=== PATIENT | female | born 1955 | race Caucasian/White ===

== ENCOUNTER 2016-08-21 19:02 | Emergency (ER) | payer MEDICAID ==
--- NOTE | 2016-08-21 19:15 | ER Document Report ---
ED Medical Screen (RME) - General Stated Complaint: POSSIBLE STROKE Notes: 61 yo female c/o abdominal pain x 2 days. + vomiting, no dysuria, no fever. generalized abdominal pain. c/o chest tightness and kidney pain. hx/o bipolar, schizo, ovarian cysts, tre, hernia repair TRAVEL OUTSIDE OF THE [place] IN LAST 30 DAYS: No - Related Data Allergies/Adverse Reactions: kiwi [Kiwi (Actinidia Chinensis)] Allergy (Severe, Verified 12/21/14 08:20) tongue swelling and bumps on tongue propoxyphene napsylate [From Darvocet-N 100] Allergy (Severe, Verified 12/21/14 08:20) VOMITING, SWELLING tetracycline [Tetracycline] Allergy (Severe, Verified 12/21/14 08:20) BUMPS ON BODY trimethoprim [From Bactrim] Allergy (Severe, Verified 12/21/14 08:20) PT STATES HER "BODY QUINONEZ UP." sulfamethoxazole [From Bactrim] Allergy (Intermediate, Verified 12/21/14 08:20) PT STATES HER "BODY QUINONEZ UP. strawberry [[place]] Allergy (Mild, Verified 12/21/14 08:20) bumps and sores on tongue ciprofloxacin [From Cipro] Allergy (Verified 10/16/15 12:14) Psychosis nuts Allergy (Mild, Uncoded 12/21/14 08:20) walnuts. causes tongue swelling pineapples Allergy (Mild, Uncoded 12/21/14 08:20) tongue swelling and bumps on tongue Past Medical History - Past Medical History Cardiac Medical History: Reports: Hx Hypertension Denies: Hx Heart Attack Pulmonary Medical History: Reports: Hx Asthma, Hx COPD, Hx Pneumonia Denies: Hx Bronchitis Neurological Medical History: Denies: Hx Cerebrovascular Accident, Hx Seizures Endocrine Medical History: Reports: Hx Diabetes Mellitus Type 2 GI Medical History: Reports: Hx Gastroesophageal Reflux Disease Musculoskeltal Medical History: Reports Hx Arthritis - DDD, BACK AND KNEES Psychiatric Medical History: Reports: Hx Bipolar Disorder, Hx Depression, Hx Schizophrenia - "borderline" Past Surgical History: Reports: Hx Section, Hx Cholecystectomy, Hx Herniorrhaphy - Immunizations Hx Diphtheria, Pertussis, Tetanus Vaccination: Yes - HAD PNEUMONIA VACCINE-NOT SURE OF YEAR Physical Exam - Vital signs Vitals: Temp Pulse Resp BP Pulse Ox 98.4 F 79 20 154/100 H 97 08/21/16 19:08 08/21/16 19:08 08/21/16 19:08 08/21/16 19:08 08/21/16 19:08 Course - Vital Signs Vital signs: Temp Pulse Resp BP Pulse Ox 98.4 F 79 20 154/100 H 97 08/21/16 19:08 08/21/16 19:08 08/21/16 19:08 08/21/16 19:08 08/21/16 19:08
[2016-08-21 19:48] LABS: ABSOLUTE BASOPHILS # (AUTO) 0.1 10^3/uL (0.0-0.2); ABSOLUTE EOSINOPHILS # (AUTO) 0.2 10^3/uL (0.0-0.6); ABSOLUTE LYMPHOCYTES (AUTO) 2.8 10^3/uL (0.5-4.7); ABSOLUTE MONOCYTES (AUTO) 0.6 10^3/uL (0.1-1.4); ABSOLUTE NEUT (AUTO) 10.3 10^3/uL (1.7-8.2); BASOPHILS % (AUTO) 0.7 % (0-2); EOSINOPHILS % (AUTO) 1.2 % (0-6); HEMATOCRIT 46.4 % (36.0-47.0); HEMOGLOBIN 14.6 g/dL (12.0-15.5); HGB HCT DIFFERENCE -2.6; LYMPHOCYTES % (AUTO) 20.1 % (13-45); MEAN CORPUSCULAR HEMOGLOBIN 23.8 pg (27.0-33.4); MEAN CORPUSCULAR HGB CONC 31.5 g/dL (32.0-36.0); MEAN CORPUSCULAR VOLUME 76 fl (80-97); MONOCYTES % (AUTO) 4.6 % (3-13); RED BLOOD COUNT 6.14 10^6/uL (3.72-5.28); RED CELL DISTRIBUTION WIDTH 17.3 % (11.5-14.0); SEGMENTED NEUTROPHILS % (AUTO) 73.4 % (42-78)
[2016-08-21 20:07] LABS: ALANINE AMINOTRANSFERASE 63 U/L (9-52); ALBUMIN 4.3 g/dL (3.5-5.0); ALKALINE PHOSPHATASE 155 U/L (38-126); ANION GAP 17 (5-19); ASPARTATE AMINO TRANSFERASE 57 U/L (14-36); BILIRUBIN,DIRECT 0.7 mg/dL (0.0-0.4); BILIRUBIN,TOTAL 1.1 mg/dL (0.2-1.3); BLOOD UREA NITROGEN 16 mg/dL (7-20); CALCIUM 10.2 mg/dL (8.4-10.2); CARBON DIOXIDE 25 mmol/L (22-30); CHLORIDE 100 mmol/L (98-107); CREATINE KINASE 23 U/L (30-135); CREATININE RESULT 0.86 mg/dL (0.52-1.25); GLUCOSE 167 mg/dL (75-110); LIPASE 219.4 U/L (23-300); POTASSIUM 4.5 mmol/L (3.6-5.0); SODIUM 141.5 mmol/L (137-145)
[2016-08-21 20:17] LABS: CREATINE KINASE MB < 0.22 ng/mL (<4.55); TROPONIN I < 0.012 ng/mL
[2016-08-21 23:37] LABS: APPEARANCE,URINE SLIGHTLY-CLOUDY; BILIRUBIN,URINE NEGATIVE (NEGATIVE); GLUCOSE, URINE NEGATIVE (NEGATIVE); KETONES,URINE NEGATIVE (NEGATIVE); LEUKOCYTE ESTERASE,URINE LARGE (NEGATIVE); NITRITE,URINE POSITIVE (NEGATIVE); PROTEIN,URINE 30 mg/dL (NEGATIVE); URINE SPECIFIC GRAVITY 1.009; UROBILINOGEN,URINE NEGATIVE mg/dL (<2.0)
[2016-08-21] MEDS ORDERED: LIDOCAINE 1% INJ-PF (10 MG/ML) 30 ML SDV INFIL ONE (23:49)
[2016-08-21] MEDS ORDERED: CEFTRIAXONE INJ 1000 MG VIAL IM ONE (23:49)
[2016-08-21] MEDS ORDERED: ONDANSETRON 4 MG TAB.RAPDIS PO ONE (23:49)
[2016-08-21] MEDS ORDERED: INSULIN GLARGINE,HUM.REC.ANLOG 1,000 UNIT/10 ML UNIT SUBCUT ONE (23:49)
[2016-08-21] MEDS ORDERED: KETOROLAC TROMETHAMINE 60 MG/2 ML SDV IM ONE (23:50)
--- NOTE | 2016-08-22 | ER Document Report ---
ED GI/ - General Mode of Arrival: Wheelchair Information source: Patient TRAVEL OUTSIDE OF THE [place] IN LAST 30 DAYS: No - HPI Patient complains to provider of: Abdominal pain Associated symptoms: Other - See above <MORENITA ALCALA - Last Filed: 08/22/16 00:23> <LEI LAMBERT - Last Filed: 08/22/16 03:37> - General Chief Complaint: Abdominal Pain Stated Complaint: abdominal pain Notes: Patient is a 61 year old female who presents to the emergency department complaining of abdominal pain. Patient states the pain is severe, diffuse, and is also in her kidneys. Patient states she has had UTIs and kidney infections in the past and this feels different. Patient states the pain has calmed some since arrival but is still "unbearable". Patient also complains of vomiting. Patient denies dysuria. Patient reports that she did not take her [place] at 1900 like she does normally. (MORENITA ALCALA) - Related Data Allergies/Adverse Reactions: kiwi [Kiwi (Actinidia Chinensis)] Allergy (Severe, Verified 12/21/14 08:20) tongue swelling and bumps on tongue propoxyphene napsylate [From Darvocet-N 100] Allergy (Severe, Verified 12/21/14 08:20) VOMITING, SWELLING tetracycline [Tetracycline] Allergy (Severe, Verified 12/21/14 08:20) BUMPS ON BODY trimethoprim [From Bactrim] Allergy (Severe, Verified 12/21/14 08:20) PT STATES HER "BODY QUINONEZ UP." sulfamethoxazole [From Bactrim] Allergy (Intermediate, Verified 12/21/14 08:20) PT STATES HER "BODY QUINONEZ UP. strawberry [[place]] Allergy (Mild, Verified 12/21/14 08:20) bumps and sores on tongue ciprofloxacin [From Cipro] Allergy (Verified 10/16/15 12:14) Psychosis nuts Allergy (Mild, Uncoded 12/21/14 08:20) walnuts. causes tongue swelling pineapples Allergy (Mild, Uncoded 12/21/14 08:20) tongue swelling and bumps on tongue Past Medical History - General Information source: Patient - Social History Smoking Status: Unknown if Ever Smoked Family History: Reviewed & Not Pertinent Patient has suicidal ideation: No Patient has homicidal ideation: No - Past Medical History Cardiac Medical History: Reports: Hx Hypertension Pulmonary Medical History: Reports: Hx Asthma, Hx COPD, Hx Pneumonia Endocrine Medical History: Reports: Hx Diabetes Mellitus Type 2 GI Medical History: Reports: Hx Gastroesophageal Reflux Disease Musculoskeltal Medical History: Reports Hx Arthritis - DDD, BACK AND KNEES Psychiatric Medical History: Reports: Hx Bipolar Disorder, Hx Depression, Hx Schizophrenia - "borderline" Past Surgical History: Reports: Hx Section, Hx Cholecystectomy, Hx Herniorrhaphy - Immunizations Hx Diphtheria, Pertussis, Tetanus Vaccination: Yes - HAD PNEUMONIA VACCINE-NOT SURE OF YEAR Hx Pneumococcal Vaccination: 06/02/09 <MORENITA ALCALA - Last Filed: 08/22/16 00:23> Review of Systems - Review of Systems Constitutional: No symptoms reported EENT: No symptoms reported Cardiovascular: No symptoms reported Respiratory: No symptoms reported Gastrointestinal: See HPI, Abdominal pain, Vomiting Genitourinary: See HPI, Flank pain - kidney pain. denies: Dysuria Female Genitourinary: No symptoms reported Musculoskeletal: No symptoms reported Skin: No symptoms reported Hematologic/Lymphatic: No symptoms reported Neurological/Psychological: No symptoms reported -: Yes All other systems reviewed and negative <MORENITA ALCALA - Last Filed: 08/22/16 00:23> Physical Exam - Vital signs Interpretation: Normal - General General appearance: Appears well, Alert - HEENT Head: Normocephalic, Atraumatic Eyes: Normal Pupils: PERRL - Respiratory Respiratory status: No respiratory distress Chest status: Nontender Breath sounds: Normal Chest palpation: Normal - Cardiovascular Rhythm: Regular Heart sounds: Normal auscultation Murmur: No - Abdominal Inspection: Normal Distension: No distension Bowel sounds: Normal Tenderness: Tender - Suprapubic Organomegaly: No organomegaly - Back Back: Normal, CVA tenderness - b/l - Extremities General upper extremity: Normal inspection, Nontender, Normal color, Normal ROM , Normal temperature General lower extremity: Normal inspection, Nontender, Normal color, Normal ROM , Normal temperature, Normal weight bearing. No: Patria's sign - Neurological Neuro grossly intact: Yes Cognition: Normal Orientation: AAOx4 Andrea Coma Scale Eye Opening: Spontaneous Andrea Coma Scale Verbal: Oriented Andrea Coma Scale Motor: Obeys Commands Andrea Coma Scale Total: 15 Speech: Normal Motor strength normal: LUE, RUE, LLE, RLE Sensory: Normal - Psychological Associated symptoms: Normal affect, Normal mood - Skin Skin Temperature: Warm Skin Moisture: Dry Skin Color: Normal <LEI LAMBERT - Last Filed: 08/22/16 03:37> - Vital signs Vitals: Temp Pulse Resp BP Pulse Ox 98.4 F 79 20 154/100 H 97 08/21/16 19:08 08/21/16 19:08 08/21/16 19:08 08/21/16 19:08 08/21/16 19:08 Course - Laboratory Result Diagrams: 08/21/16 19:25 08/21/16 19:25 <MORENITA ALCALA - Last Filed: 08/22/16 00:23> - Laboratory Result Diagrams: 08/21/16 19:25 08/21/16 19:25 <LEI LAMBERT - Last Filed: 08/22/16 03:37> - Re-evaluation Re-evalutation: 08/22/16 03:25 Patient with UTI and back pain. Patient is tolerating by mouth. I reviewed her old microbiology and has been susceptible to cephalosporins in the past. Patient will be given a dose Rocephin here. Feels better after Toradol. Will be discharged home with Keflex. urine culture will be sent. Those are stable. No fever. Patient will be discharged home and is instructed to follow-up with her doctor. Understands and agrees with plan. Of note, the patient has a propensity for opiate abuse and will not be discharged home with opiates. ( LEI LAMBERT) - Vital Signs Vital signs: Temp Pulse Resp BP Pulse Ox 97.7 F 70 17 117/67 95 08/22/16 02:22 08/22/16 02:22 08/22/16 02:22 08/22/16 02:22 08/22/16 02:22 - Laboratory Laboratory results interpreted by me: 08/21/16 08/21/16 08/21/16 19:25 19:25 23:14 WBC 14.0 H RBC 6.14 H MCV 76 L MCH 23.8 L MCHC 31.5 L RDW 17.3 H Absolute Neutrophils 10.3 H Glucose 167 H POC Glucose Direct Bilirubin 0.7 H AST 57 H ALT 63 H Alkaline Phosphatase 155 H Creatine Kinase 23 L Urine Protein 30 H Urine Nitrite POSITIVE H Ur Leukocyte Esterase LARGE H 08/22/16 00:40 WBC RBC MCV MCH MCHC RDW Absolute Neutrophils Glucose POC Glucose 113 H Direct Bilirubin AST ALT Alkaline Phosphatase Creatine Kinase Urine Protein Urine Nitrite Ur Leukocyte Esterase Discharge <MORENITA ALCALA - Last Filed: 08/22/16 00:23> <LEI LAMBERT - Last Filed: 08/22/16 03:37> - Discharge Clinical Impression: Urinary tract infection Qualifiers: Urinary tract infection type: site unspecified Hematuria presence: without hematuria Qualified Code(s): N39.0 - Urinary tract infection, site not specified Condition: Stable Disposition: HOME, SELF-CARE Instructions: Urinary Tract Infection ([facility]) Prescriptions: Cephalexin Monohydrate [Keflex 500 mg Capsule] 500 mg PO QID #40 capsule Naproxen [Naprosyn 250 mg Tablet] 250 mg PO DAILY PRN #14 tablet PRN Reason: Referrals: LISA DIETZ MD [Primary Care Provider] - Follow up tomorrow Scribe Attestation: 08/22/16 03:28 I personally performed the services described in the documentation, reviewed and edited the documentation which was dictated to the scribe in my presence, and it accurately records my words and actions. (LEI LAMBERT) Scribe Documentation - Scribe Written by Danayibe:: trae Atkins, 08/22/16, 0027 acting as scribe for :: Jhoan <MORENITA ALCALA - Last Filed: 08/22/16 00:23>
[2016-08-22 04:13] VITALS: BP 129/67
--- NOTE | 2016-08-22 08:10 | EKG REPORT ---
SEVERITY:- NORMAL ECG - SINUS RHYTHM : Confirmed by: Flavio Perez MD 22-Aug-2016 08:09:51
== END 2016-08-22 03:50 | disposition home or self-care (01) ==
LOC: ER 19:02
DX: N39.0 Urinary tract infection, site not specified (principal); R11.10 Vomiting, unspecified; E11.9 Type 2 diabetes mellitus without complications; I10 Essential (primary) hypertension; J44.9 Chronic obstructive pulmonary disease, unspecified; Z79.4 Long term (current) use of insulin; Z91.013 Allergy to seafood; Z91.018 Allergy to other foods; Z88.5 Allergy status to narcotic agent; Z88.1 Allergy status to other antibiotic agents
CPT/HCPCS: 93005; 99284; 96372; 36415; 87086; 82553; 82962; 82550; 83690; 85025; 87088; 80053; 81001; 84484; 87186; 74022; 93010; J1815; J1885; S0119; J3490; J0696

== ENCOUNTER 2016-08-26 16:54 | Emergency (ER) | payer MEDICAID ==
--- NOTE | 2016-08-26 17:07 | ER Document Report ---
ED Medical Screen (RME) - General Stated Complaint: NOT FEELING WELL Mode of Arrival: Medic Information source: Emergency Med Personnel Notes: Patient presents EMS for stroke symptoms. EMS reports negative stroke screen. Patient was seen and evaluated for UTI last week and the emergency department. Denies other symptoms such as fever vomiting diarrhea. She reports her symptoms started yesterday. With the right side of her body became weak the symptoms coming go, reports her whole side of her body goes numb. Pt takes seraquil. No obvious neuro deficit. Pt raises eyebrows evenly, when asked to smile she closes her right eye, cheeks puff out evenly, no weakness. When patient talking face symetrical, no obvious deficits. speaks clear. I have greeted and performed a rapid initial assessment of this patient. A comprehensive ED assessment and evaluation of the patient, analysis of test results and completion of the medical decision making process will be conducted by additional ED providers. TRAVEL OUTSIDE OF THE [place] IN LAST 30 DAYS: No - Related Data Allergies/Adverse Reactions: kiwi [Kiwi (Actinidia Chinensis)] Allergy (Severe, Verified 12/21/14 08:20) tongue swelling and bumps on tongue propoxyphene napsylate [From Darvocet-N 100] Allergy (Severe, Verified 12/21/14 08:20) VOMITING, SWELLING tetracycline [Tetracycline] Allergy (Severe, Verified 12/21/14 08:20) BUMPS ON BODY trimethoprim [From Bactrim] Allergy (Severe, Verified 12/21/14 08:20) PT STATES HER "BODY QUINONEZ UP." sulfamethoxazole [From Bactrim] Allergy (Intermediate, Verified 12/21/14 08:20) PT STATES HER "BODY QUINONEZ UP. strawberry [[place]] Allergy (Mild, Verified 12/21/14 08:20) bumps and sores on tongue ciprofloxacin [From Cipro] Allergy (Verified 10/16/15 12:14) Psychosis nuts Allergy (Mild, Uncoded 12/21/14 08:20) walnuts. causes tongue swelling pineapples Allergy (Mild, Uncoded 12/21/14 08:20) tongue swelling and bumps on tongue Past Medical History - Past Medical History Cardiac Medical History: Reports: Hx Hypertension Denies: Hx Heart Attack Pulmonary Medical History: Reports: Hx Asthma, Hx COPD, Hx Pneumonia Denies: Hx Bronchitis Neurological Medical History: Denies: Hx Cerebrovascular Accident, Hx Seizures Endocrine Medical History: Reports: Hx Diabetes Mellitus Type 2 Renal/ Medical History: Denies: Hx Peritoneal Dialysis GI Medical History: Reports: Hx Gastroesophageal Reflux Disease Musculoskeltal Medical History: Reports Hx Arthritis - DDD, BACK AND KNEES Psychiatric Medical History: Reports: Hx Bipolar Disorder, Hx Depression, Hx Schizophrenia - "borderline" Past Surgical History: Reports: Hx Section, Hx Cholecystectomy, Hx Herniorrhaphy - Immunizations Hx Diphtheria, Pertussis, Tetanus Vaccination: Yes - HAD PNEUMONIA VACCINE-NOT SURE OF YEAR Physical Exam - Vital signs Vitals: Temp Pulse Resp BP Pulse Ox 98.2 F 76 14 189/88 H 96 08/26/16 17:02 08/26/16 17:02 08/26/16 17:02 08/26/16 17:02 08/26/16 17:02 Course - Vital Signs Vital signs: Temp Pulse Resp BP Pulse Ox 98.2 F 76 14 189/88 H 96 08/26/16 17:02 08/26/16 17:02 08/26/16 17:02 08/26/16 17:02 08/26/16 17:02
[2016-08-26 21:36] LABS: ABSOLUTE BASOPHILS # (AUTO) 0.1 10^3/uL (0.0-0.2); ABSOLUTE EOSINOPHILS # (AUTO) 0.3 10^3/uL (0.0-0.6); ABSOLUTE LYMPHOCYTES (AUTO) 3.2 10^3/uL (0.5-4.7); ABSOLUTE MONOCYTES (AUTO) 0.8 10^3/uL (0.1-1.4); ABSOLUTE NEUT (AUTO) 10.8 10^3/uL (1.7-8.2); BASOPHILS % (AUTO) 0.6 % (0-2); EOSINOPHILS % (AUTO) 2.1 % (0-6); HEMATOCRIT 46.1 % (36.0-47.0); HEMOGLOBIN 14.5 g/dL (12.0-15.5); HGB HCT DIFFERENCE -2.6; LYMPHOCYTES % (AUTO) 21.1 % (13-45); MEAN CORPUSCULAR HEMOGLOBIN 23.6 pg (27.0-33.4); MEAN CORPUSCULAR HGB CONC 31.5 g/dL (32.0-36.0); MEAN CORPUSCULAR VOLUME 75 fl (80-97); MONOCYTES % (AUTO) 5.3 % (3-13); RED BLOOD COUNT 6.15 10^6/uL (3.72-5.28); RED CELL DISTRIBUTION WIDTH 17.2 % (11.5-14.0); SEGMENTED NEUTROPHILS % (AUTO) 70.9 % (42-78); WHITE BLOOD COUNT 15.2 10^3/uL (4.0-10.5)
[2016-08-26 21:42] LABS: PROTHROMBIN TIME 13.2 SEC (11.4-15.4)
[2016-08-26 21:45] LABS: APPEARANCE,URINE CLEAR; BILIRUBIN,URINE NEGATIVE (NEGATIVE); GLUCOSE, URINE NEGATIVE (NEGATIVE); KETONES,URINE NEGATIVE (NEGATIVE); LEUKOCYTE ESTERASE,URINE MODERATE (NEGATIVE); NITRITE,URINE NEGATIVE (NEGATIVE); PROTEIN,URINE NEGATIVE (NEGATIVE); URINE SPECIFIC GRAVITY 1.006; UROBILINOGEN,URINE NEGATIVE mg/dL (<2.0)
[2016-08-26 21:53] LABS: ALANINE AMINOTRANSFERASE 69 U/L (9-52); ALBUMIN 4.6 g/dL (3.5-5.0); ALKALINE PHOSPHATASE 163 U/L (38-126); ANION GAP 16 (5-19); ASPARTATE AMINO TRANSFERASE 54 U/L (14-36); BILIRUBIN,DIRECT 0.7 mg/dL (0.0-0.4); BILIRUBIN,TOTAL 1.1 mg/dL (0.2-1.3); BLOOD UREA NITROGEN 17 mg/dL (7-20); CALCIUM 10.6 mg/dL (8.4-10.2); CARBON DIOXIDE 27 mmol/L (22-30); CHLORIDE 102 mmol/L (98-107); CREATININE RESULT 0.84 mg/dL (0.52-1.25); GLUCOSE 117 mg/dL (75-110); POTASSIUM 4.6 mmol/L (3.6-5.0); SODIUM 145.3 mmol/L (137-145); TOTAL PROTEIN 8.5 g/dL (6.3-8.2)
[2016-08-27] MEDS ORDERED: SUCRALFATE 1 GM TABLET PO ONE (04:15)
[2016-08-27] MEDS ORDERED: KETOROLAC TROMETHAMINE 60 MG/2 ML SDV IM ONE (04:15)
--- NOTE | 2016-08-27 04:18 | ER Document Report ---
ED General - General Mode of Arrival: Medic Information source: Patient TRAVEL OUTSIDE OF THE [place] IN LAST 30 DAYS: No - HPI Onset: This evening Associated symptoms: Other - see HPI <LUISA MULTANI - Last Filed: 08/27/16 05:33> <PETRALEI TOI - Last Filed: 08/27/16 07:01> - General Chief Complaint: Weakness Stated Complaint: NOT FEELING WELL Notes: 61 year old female with history of bipolar disorder presents to the ED via EMS complaining of feeling "unwell" and having "spasms" and numbness to her face earlier this evening. Patient states that she looked up her symptoms and thought that she was having a stroke. Additionally, the patient states that her joints feel "locked" and she is having left hip pain. Patient is also suspicious of her and believes that he may be drugging her drink. She reports that she drank something given by her and states that it " tasted funny." Patient was recently diagnosed with a UTI and is currently on pain medication and antibiotics. (LUISA MULTANI) - Related Data Allergies/Adverse Reactions: kiwi [Kiwi (Actinidia Chinensis)] Allergy (Severe, Verified 08/27/16 04:15) tongue swelling and bumps on tongue propoxyphene napsylate [From Darvocet-N 100] Allergy (Severe, Verified 08/27/16 04:15) VOMITING, SWELLING tetracycline [Tetracycline] Allergy (Severe, Verified 08/27/16 04:15) BUMPS ON BODY trimethoprim [From Bactrim] Allergy (Severe, Verified 08/27/16 04:15) PT STATES HER "BODY QUINONEZ UP." sulfamethoxazole [From Bactrim] Allergy (Intermediate, Verified 08/27/16 04:15) PT STATES HER "BODY QUINONEZ UP. strawberry [[place]] Allergy (Mild, Verified 08/27/16 04:15) bumps and sores on tongue ciprofloxacin [From Cipro] Allergy (Verified 08/27/16 04:15) Psychosis nuts Allergy (Mild, Uncoded 12/21/14 08:20) walnuts. causes tongue swelling pineapples Allergy (Mild, Uncoded 12/21/14 08:20) tongue swelling and bumps on tongue Past Medical History - General Information source: Patient, Emergency Med Personnel - Social History Smoking Status: Unknown if Ever Smoked Family History: Reviewed & Not Pertinent Patient has suicidal ideation: No Patient has homicidal ideation: No - Past Medical History Cardiac Medical History: Reports: Hx Hypertension Pulmonary Medical History: Reports: Hx Asthma, Hx COPD, Hx Pneumonia Endocrine Medical History: Reports: Hx Diabetes Mellitus Type 2 Renal/ Medical History: Denies: Hx Peritoneal Dialysis GI Medical History: Reports: Hx Gastroesophageal Reflux Disease Musculoskeltal Medical History: Reports Hx Arthritis - DDD, BACK AND KNEES Psychiatric Medical History: Reports: Hx Bipolar Disorder, Hx Depression, Hx Schizophrenia - "borderline" Past Surgical History: Reports: Hx Section, Hx Cholecystectomy, Hx Herniorrhaphy - Immunizations Hx Diphtheria, Pertussis, Tetanus Vaccination: Yes - HAD PNEUMONIA VACCINE-NOT SURE OF YEAR Hx Pneumococcal Vaccination: 06/02/09 <LUISA MULTANI - Last Filed: 08/27/16 05:33> Review of Systems - Review of Systems Constitutional: No symptoms reported EENT: No symptoms reported Cardiovascular: No symptoms reported Respiratory: No symptoms reported Gastrointestinal: No symptoms reported Genitourinary: No symptoms reported Female Genitourinary: No symptoms reported Musculoskeletal: See HPI, Joint pain - joints feel like they are "locked up" and left hip pain Skin: No symptoms reported Hematologic/Lymphatic: No symptoms reported Neurological/Psychological: See HPI, Numbness - face -: Yes All other systems reviewed and negative <LUISA MULTANI - Last Filed: 08/27/16 05:33> Physical Exam - General General appearance: Alert In distress: None - HEENT Head: Normocephalic, Atraumatic Eyes: Normal Extraocular movements intact: Yes Pupils: PERRL - Respiratory Respiratory status: No respiratory distress Breath sounds: Normal - Cardiovascular Rhythm: Regular Heart sounds: Normal auscultation - Abdominal Inspection: Normal - Back Back: Normal - Extremities General upper extremity: Normal inspection, Normal ROM General lower extremity: Normal inspection, Normal ROM - Neurological Neuro grossly intact: Yes Cognition: Normal Orientation: AAOx4 Andrea Coma Scale Eye Opening: Spontaneous Andrea Coma Scale Verbal: Oriented [place] Coma Scale Motor: Obeys Commands [place] Coma Scale Total: 15 Speech: Normal - Psychological Associated symptoms: Normal affect, Normal mood - Skin Skin Temperature: Warm Skin Moisture: Dry Skin Color: Normal <LUISA MULTANI - Last Filed: 08/27/16 05:33> - Psychological Associated symptoms: Normal mood, Anxious, Other - Odd affect. No: Normal affect <LEI LAMBERT - Last Filed: 08/27/16 07:01> - Vital signs Vitals: Temp Pulse Resp BP Pulse Ox 98.2 F 76 14 189/88 H 96 08/26/16 17:02 08/26/16 17:02 08/26/16 17:02 08/26/16 17:02 08/26/16 17:02 Course - Laboratory Result Diagrams: 08/26/16 21:10 08/26/16 21:10 <LUISA MULTANI - Last Filed: 08/27/16 05:33> - Laboratory Result Diagrams: 08/26/16 21:10 08/26/16 21:10 - Diagnostic Test Radiology reviewed: Reports reviewed <LEI LAMBERT - Last Filed: 08/27/16 07:01> - Re-evaluation Re-evalutation: 08/27/16 06:59 Patient with vague paresthesias. Patient has a UTI but is resolving with Keflex. Have checked microbiology and susceptible to cephalosporins. Patient has a appointment with her mental health provider. TSH within normal limits. Blood work is stable. Patient has an odd affect but states that she does not feel like hurting herself or anyone else. She will follow up with her counselor as planned. Stable for discharge home. (LEI LAMBERT) - Vital Signs Vital signs: Temp Pulse Resp BP Pulse Ox 98.2 F 76 14 189/88 H 96 08/26/16 17:02 08/26/16 17:02 08/26/16 17:02 08/26/16 17:02 08/26/16 17:02 - Laboratory Laboratory results interpreted by me: 08/26/16 08/26/16 08/26/16 21:10 21:10 21:10 WBC 15.2 H RBC 6.15 H MCV 75 L MCH 23.6 L MCHC 31.5 L RDW 17.2 H Absolute Neutrophils 10.8 H Sodium 145.3 H Glucose 117 H POC Glucose Calcium 10.6 H Direct Bilirubin 0.7 H AST 54 H ALT 69 H Alkaline Phosphatase 163 H Total Protein 8.5 H Ur Leukocyte Esterase MODERATE H Salicylates Acetaminophen 08/26/16 08/27/16 21:10 01:05 WBC RBC MCV MCH MCHC RDW Absolute Neutrophils Sodium Glucose POC Glucose 130 H Calcium Direct Bilirubin AST ALT Alkaline Phosphatase Total Protein Ur Leukocyte Esterase Salicylates < 1.0 L Acetaminophen < 10 L Discharge <LUISA MULTANI - Last Filed: 08/27/16 05:33> <LEI LAMBERT - Last Filed: 08/27/16 07:01> - Discharge Clinical Impression: Anxiety Urinary tract infection Qualifiers: Urinary tract infection type: site unspecified Hematuria presence: without hematuria Qualified Code(s): N39.0 - Urinary tract infection, site not specified Condition: Stable Disposition: HOME, SELF-CARE Instructions: Urinary Tract Infection ([facility]) Additional Instructions: Please follow-up with your primary care doctor and your mental health provider. Please continue to take antibiotics as prescribed for urinary tract infection as they are working. Please return if you have any worsening or concerning symptoms. Referrals: LISA DIETZ MD [Primary Care Provider] - 08/28/16 Scribe Attestation: 08/27/16 07:00 I personally performed the services described in the documentation, reviewed and edited the documentation which was dictated to the scribe in my presence, and it accurately records my words and actions. (LEI LAMBERT) Scribe Documentation - Scribe Written by Danayibe:: Dylan Koroma, 08/27/2016 [id number] acting as scribe for :: Petra <LUISA MULTANI - Last Filed: 08/27/16 05:33>
[2016-08-27 05:50] LABS: ALCOHOL < 10 mg/dL (NONE DETECTED)
[2016-08-27 06:18] LABS: URINE BARBITURATES SCREEN NEGATIVE; URINE METHADONE SCREEN NEGATIVE; URINE OPIATES LOW NEGATIVE; URINE PHENCYCLIDINE SCREEN NEGATIVE
[2016-08-27 07:08] VITALS: BP 133/98
== END 2016-08-27 07:08 | disposition home or self-care (01) ==
LOC: ER 16:54
DX: F41.9 Anxiety disorder, unspecified (principal); N39.0 Urinary tract infection, site not specified; R53.1 Weakness; I10 Essential (primary) hypertension; J44.9 Chronic obstructive pulmonary disease, unspecified; E11.9 Type 2 diabetes mellitus without complications; K21.9 Gastro-esophageal reflux disease without esophagitis; Z90.49 Acquired absence of other specified parts of digestive tract
CPT/HCPCS: 99285; 96372; 36415; 82962; 80307 ×4; 84443; 85025; 85610; 80053; 81001; 70450; J1885; J3490

== ENCOUNTER 2016-09-03 12:59 | Observation (INO) | payer MEDICAID ==
[2016-09-03 14:11] LABS: APPEARANCE,URINE CLEAR; BILIRUBIN,URINE NEGATIVE (NEGATIVE); GLUCOSE, URINE NEGATIVE (NEGATIVE); KETONES,URINE NEGATIVE (NEGATIVE); LEUKOCYTE ESTERASE,URINE NEGATIVE (NEGATIVE); NITRITE,URINE NEGATIVE (NEGATIVE); PROTEIN,URINE NEGATIVE (NEGATIVE); URINE SPECIFIC GRAVITY 1.005; UROBILINOGEN,URINE NEGATIVE mg/dL (<2.0)
[2016-09-03 14:45] LABS: HEMATOCRIT 41.3 % (36.0-47.0); HEMOGLOBIN 13.7 g/dL (12.0-15.5); HGB HCT DIFFERENCE -0.2; MEAN CORPUSCULAR HGB CONC 33.1 g/dL (32.0-36.0); MEAN CORPUSCULAR VOLUME 76 fl (80-97); RED BLOOD COUNT 5.47 10^6/uL (3.72-5.28); RED CELL DISTRIBUTION WIDTH 17.2 % (11.5-14.0); WHITE BLOOD COUNT 10.9 10^3/uL (4.0-10.5)
[2016-09-03] MEDS ORDERED: LEVOFLOXACIN 750 MG/D5W RTU 750 MG/150 ML RTUPB IV SCH (15:00)
[2016-09-03 15:08] LABS: ALANINE AMINOTRANSFERASE 61 U/L (9-52); ALKALINE PHOSPHATASE 133 U/L (38-126); ANION GAP 12 (5-19); ASPARTATE AMINO TRANSFERASE 42 U/L (14-36); BILIRUBIN,DIRECT 0.4 mg/dL (0.0-0.4); BILIRUBIN,TOTAL 0.8 mg/dL (0.2-1.3); BLOOD UREA NITROGEN 12 mg/dL (7-20); CALCIUM 9.9 mg/dL (8.4-10.2); CARBON DIOXIDE 27 mmol/L (22-30); CHLORIDE 104 mmol/L (98-107); CREATININE RESULT 0.72 mg/dL (0.52-1.25); GLUCOSE 90 mg/dL (75-110); POTASSIUM 4.2 mmol/L (3.6-5.0); SODIUM 142.8 mmol/L (137-145); TOTAL PROTEIN 7.3 g/dL (6.3-8.2)
[2016-09-03 15:36] LABS: THYROID STIMULATING HORMONE 0.83 uIU/mL (0.47-4.68)
[2016-09-03] MEDS ORDERED: ALBUTEROL SULFATE HFA (90 MCG/PUFF) 8 GM MDI (1 MDI/ER DISP) IH PRN (19:11)
[2016-09-03] MEDS ORDERED: (PENDING PHARMACY ID) (Oxycodone Hcl/Acetaminophen [Percocet 10-325 Mg Tablet] 1 TAB) PO PRN (19:11)
[2016-09-03] MEDS ORDERED: OXYCODONE-ACETAMINOPHEN 5-325 MG TABLET PO PRN (19:17)
[2016-09-03] MEDS ORDERED: OXYCODONE HCL IR 5 MG TABLET PO PRN (19:18)
[2016-09-03] MEDS ORDERED: ALBUTEROL SULFATE HFA (90 MCG/PUFF) 200 PUFF/8.5 GM MDI IH PRN (19:23)
--- NOTE | 2016-09-03 19:40 | PDOC H&P ---
History of Present Illness Admission Date/PCP: 09/03/16 12:59 LISA DIETZ MD History of Present Illness: MELISSA OH is a 61 year old female, she has a history of diabetes mellitus type 2, she came to the office today with her spouse asking for help, she complained of a sensation of hotness inside the body and also in the head, there was no specific focal deficits, she has a history of recurrent urinary tract infection, as symptoms are nonspecific but patient was very dramatic in the office asking for help from and for me not to let her . She was admitted directly from the office to the hospital for evaluation of these symptoms, when she arrived in the hospital she did complain of numbness of the lower extremities, CAT scan of the head was done and it was negative for any acute pathology. Symptoms are nonspecific the urinalysis was negative, there is no urinary tract infection Past Medical History Cardiac Medical History: Reports: Hypertension Pulmonary Medical History: Reports: Asthma, Chronic Obstructive Pulmonary Disease (COPD), Pneumonia Endocrine Medical History: Reports: Diabetes Mellitus Type 2 GI Medical History: Reports: Gastroesophageal Reflux Disease Musculoskeltal Medical History: Reports: Arthritis - DDD, BACK AND KNEES Psychiatric Medical History: Reports: Bipolar Disorder, Depression Hematology: Reports: Anemia Past Surgical History Past Surgical History: Reports: Section, Cholecystectomy, Herniorrhaphy Social History Smoking Status: Former Smoker Frequency of Alcohol Use: None Hx Recreational Drug Use: No Drugs: None Hx Prescription Drug Abuse: No Family History Family History: Reviewed & Not Pertinent Parental Family History Reviewed: Yes Children Family History Reviewed: Yes Sibling(s) Family History Reviewed.: Yes Medication/Allergy Home Medications: Albuterol Sulfate [Proair HFA] 2 puff IH Q4HP PRN 09/03/16 Clonidine HCl [Catapres 0.1 mg Tablet] 0.1 mg PO Q12 09/03/16 Gabapentin [Neurontin 300 mg Capsule] 300 mg PO Q8 09/03/16 Insulin Glargine,Hum.rec.anlog [Lantus Insulin 100 Unit/1 ml 10 ml] 60 unit SQ QPM 09/03/16 Levothyroxine Sodium [Synthroid 0.025 mg Tablet] 25 mcg PO QAM 09/03/16 Lisinopril [Prinivil] 20 mg PO DAILY 09/03/16 Metformin HCl [Glucophage] 1,000 mg PO BIDBS 09/03/16 Omeprazole 20 mg PO DAILY 09/03/16 Oxycodone HCl/Acetaminophen [Percocet 10-325 mg Tablet] 1 tab PO Q6HP PRN Propranolol HCl [Inderal 40 mg Tablet] 40 mg PO Q12 09/03/16 Quetiapine Fumarate [Seroquel 100 mg Tablet] 100 mg PO DAILY 09/03/16 Quetiapine Fumarate [Seroquel] 400 mg PO QHS 09/03/16 Sitagliptin Phosphate [Januvia 50 mg Tablet] 100 mg PO DAILY 09/03/16 Allergies/Adverse Reactions: kiwi [Kiwi (Actinidia Chinensis)] Allergy (Severe, Verified 08/27/16 04:15) tongue swelling and bumps on tongue propoxyphene napsylate [From Darvocet-N 100] Allergy (Severe, Verified 08/27/16 04:15) VOMITING, SWELLING tetracycline [Tetracycline] Allergy (Severe, Verified 08/27/16 04:15) BUMPS ON BODY trimethoprim [From Bactrim] Allergy (Severe, Verified 08/27/16 04:15) PT STATES HER "BODY QUINONEZ UP." sulfamethoxazole [From Bactrim] Allergy (Intermediate, Verified 08/27/16 04:15) PT STATES HER "BODY QUINONEZ UP. strawberry [[place]] Allergy (Mild, Verified 08/27/16 04:15) bumps and sores on tongue ciprofloxacin [From Cipro] Allergy (Verified 08/27/16 04:15) Psychosis nuts Allergy (Mild, Uncoded 12/21/14 08:20) walnuts. causes tongue swelling pineapples Allergy (Mild, Uncoded 12/21/14 08:20) tongue swelling and bumps on tongue Review of Systems Constitutional: ABSENT: chills, fever(s), headache(s), weight gain, weight loss Eyes: ABSENT: visual disturbances Ears: ABSENT: hearing changes Cardiovascular: ABSENT: chest pain, dyspnea on exertion, edema, orthropnea, palpitations Respiratory: ABSENT: cough, hemoptysis Gastrointestinal: ABSENT: abdominal pain, constipation, diarrhea, hematemesis, hematochezia, nausea, vomiting Genitourinary: ABSENT: dysuria, hematuria Musculoskeletal: ABSENT: joint swelling Integumentary: ABSENT: rash, wounds Neurological: PRESENT: paresthesias Psychiatric: ABSENT: anxiety, depression, homidical ideation, suicidal ideation Endocrine: ABSENT: cold intolerance, heat intolerance, menstrual abnormalities, polydipsia, polyuria Hematologic/Lymphatic: ABSENT: easy bleeding, easy bruising, lymphadenopathy Physical Exam Vital Signs: Temp Pulse Resp BP Pulse Ox 98.0 F 75 18 155/95 H 99 09/03/16 16:15 09/03/16 16:15 09/03/16 16:15 09/03/16 16:15 09/03/16 16:15 Intake & Output 09/02/16 09/03/16 09/04/16 06:59 06:59 06:59 Intake Total 946 Output Total 250 Balance 696 Weight 107.1 kg General appearance: PRESENT: no acute distress, well-developed, well-nourished Head exam: PRESENT: atraumatic, normocephalic Eye exam: PRESENT: conjunctiva pink, EOMI, PERRLA Ear exam: PRESENT: normal external ear exam Mouth exam: PRESENT: moist, tongue midline Neck exam: PRESENT: full ROM Respiratory exam: PRESENT: clear to auscultation alvaro Cardiovascular exam: PRESENT: RRR, +S1, +S2 Pulses: PRESENT: normal dorsalis pedis pul, +2 pedal pulses bilateral Vascular exam: PRESENT: normal capillary refill GI/Abdominal exam: PRESENT: normal bowel sounds, soft Rectal exam: PRESENT: deferred Neurological exam: PRESENT: alert, awake, oriented to person, oriented to place , oriented to time, oriented to situation, CN II-XII grossly intact. ABSENT: motor sensory deficit Psychiatric exam: PRESENT: appropriate affect, normal mood Skin exam: PRESENT: dry, intact, warm Results Laboratory Results: 09/03/16 14:15 09/03/16 14:15 09/03/16 09/03/16 09/03/16 13:42 14:15 14:15 WBC 10.9 H RBC 5.47 H Hgb 13.7 Hct 41.3 MCV 76 L MCH 25.0 L MCHC 33.1 RDW 17.2 H Plt Count 234 Sodium 142.8 Potassium 4.2 Chloride 104 Carbon Dioxide 27 Anion Gap 12 BUN 12 Creatinine 0.72 Est GFR ( Amer) > 60 Est GFR (Non-Af Amer) > 60 Glucose 90 Calcium 9.9 Total Bilirubin 0.8 AST 42 H ALT 61 H Alkaline Phosphatase 133 H Total Protein 7.3 Albumin 4.0 TSH Free T4 Urine Color STRAW Urine Appearance CLEAR Urine pH 5.0 Ur Specific [place] 1.005 Urine Protein NEGATIVE Urine Glucose (UA) NEGATIVE Urine Ketones NEGATIVE Urine Blood NEGATIVE Urine Nitrite NEGATIVE Ur Leukocyte Esterase NEGATIVE 09/03/16 14:15 WBC RBC Hgb Hct MCV MCH MCHC RDW Plt Count Sodium Potassium Chloride Carbon Dioxide Anion Gap BUN Creatinine Est GFR ( Amer) Est GFR (Non-Af Amer) Glucose Calcium Total Bilirubin AST ALT Alkaline Phosphatase Total Protein Albumin TSH 0.83 Free T4 1.33 Urine Color Urine Appearance Urine pH Ur Specific [place] Urine Protein Urine Glucose (UA) Urine Ketones Urine Blood Urine Nitrite Ur Leukocyte Esterase Impressions: Chest X-Ray 09/03/16 00:00 IMPRESSION: NO ACUTE RADIOGRAPHIC FINDING IN THE CHEST. Assessment & Plan - Diagnosis (1) Type 2 diabetes mellitus Qualifiers: Diabetes mellitus complication status: with neurologic complications Diabetes mellitus complication detail: with polyneuropathy Diabetes mellitus intermodal truck driver insulin use: with intermodal truck driver use Qualified Code(s): E11.42 - Type 2 diabetes mellitus with diabetic polyneuropathy; Z79.4 - buttermilk drier operator (current) use of insulin Is this a current diagnosis for this admission?: YesPlan: She probably have diabetic neuropathy there is no urinary tract infection and there is no acute pathology found on evaluation to be discharged home.
[2016-09-03] MEDS ORDERED: (PENDING PHARMACY ID) (Quetiapine Fumarate [Seroquel] 400 MG) PO SCH (22:00)
[2016-09-03] MEDS ORDERED: QUETIAPINE FUMARATE 100 MG TABLET PO SCH (22:00)
[2016-09-03] MEDS: PROPRANOLOL HCL 40 MG TABLET PO SCH (22:04)
[2016-09-03] MEDS: CLONIDINE HCL 0.1 MG TABLET PO SCH (22:05)
[2016-09-03] MEDS: GABAPENTIN 300 MG CAPSULE PO SCH (22:05)
[2016-09-04] MEDS: GABAPENTIN 300 MG CAPSULE PO SCH ×2 (05:45→13:57)
[2016-09-04] MEDS: METFORMIN HCL 500 MG TABLET PO SCH ×2 (07:55→16:48)
[2016-09-04] MEDS ORDERED: LEVOTHYROXINE SODIUM 0.025 MG TABLET PO SCH (08:00)
[2016-09-04] MEDS: CLONIDINE HCL 0.1 MG TABLET PO SCH (09:15)
[2016-09-04] MEDS: PROPRANOLOL HCL 40 MG TABLET PO SCH (09:15)
[2016-09-04] MEDS ORDERED: LANSOPRAZOLE 15 MG TAB.RAP.DR PO SCH (10:00)
[2016-09-04] MEDS ORDERED: SITAGLIPTIN PHOSPHATE 50 MG TABLET PO SCH (10:00)
[2016-09-04] MEDS ORDERED: QUETIAPINE FUMARATE 100 MG TABLET PO SCH (10:00)
[2016-09-04] MEDS ORDERED: LISINOPRIL 10 MG TABLET PO SCH (10:00)
[2016-09-04] MEDS ORDERED: (PENDING PHARMACY ID) (Lisinopril [Prinivil] 20 MG) PO SCH (10:00)
[2016-09-04 16:55] VITALS: BP 138/70
--- NOTE | 2016-09-04 17:00 | PDOC DISCHARGE SUMMARY ---
General - Admit/Disc Date/PCP Admission Date/Primary Care Provider: 09/03/16 12:59 LISA DIETZ MD Discharge Date: 09/04/16 - Discharge Diagnosis (1) Type 2 diabetes mellitus Is this a current diagnosis for this admission?: Yes - Additional Information Discharge Diet: Diabetic Discharge Activity: Activity As Tolerated Home Medications: Albuterol Sulfate [Proair HFA] 2 puff IH Q4HP PRN 09/03/16 Clonidine HCl [Catapres 0.1 mg Tablet] 0.1 mg PO Q12 09/03/16 Gabapentin [Neurontin 300 mg Capsule] 300 mg PO Q8 09/03/16 Levothyroxine Sodium [Synthroid 0.025 mg Tablet] 25 mcg PO QAM 09/03/16 Lisinopril [Prinivil] 20 mg PO DAILY 09/03/16 Metformin HCl [Glucophage] 1,000 mg PO BIDBS 09/03/16 Omeprazole 20 mg PO DAILY 09/03/16 Oxycodone HCl/Acetaminophen [Percocet 10-325 mg Tablet] 1 tab PO Q6HP PRN Propranolol HCl [Inderal 40 mg Tablet] 40 mg PO Q12 09/03/16 Quetiapine Fumarate [Seroquel 100 mg Tablet] 100 mg PO DAILY 09/03/16 Quetiapine Fumarate [Seroquel] 400 mg PO QHS 09/03/16 Sitagliptin Phosphate [Januvia 50 mg Tablet] 100 mg PO DAILY 09/03/16 History of Present Illness History of Present Illness: MELISSA OH is a 61 year old female, she has a history of diabetes mellitus type 2, she came to the office today with her spouse asking for help, she complained of a sensation of hotness inside the body and also in the head, there was no specific focal deficits, she has a history of recurrent urinary tract infection, as symptoms are nonspecific but patient was very dramatic in the office asking for help from and for me not to let her . She was admitted directly from the office to the hospital for evaluation of these symptoms, when she arrived in the hospital she did complain of numbness of the lower extremities, CAT scan of the head was done and it was negative for any acute pathology. Symptoms are nonspecific the urinalysis was negative, there is no urinary tract infection Hospital Course Hospital Course: The hemoglobin A1c is 5.3, she is advised to stop the insulin completely and just continue the oral agent as symptoms could be related to hypoglycemia, the POC Accu-Chek that was done in the hospital indicate low blood sugar. The evaluation done was negative she probably have diabetic neuropathy Physical Exam Vital Signs: Temp Pulse Resp BP Pulse Ox 98.1 F 71 18 138/70 H 98 09/04/16 15:18 09/04/16 15:18 09/04/16 15:18 09/04/16 15:18 09/04/16 15:18 Intake & Output 09/03/16 09/04/16 09/05/16 06:59 06:59 06:59 Intake Total 1306 836 Output Total 900 780 Balance 406 56 Weight 109.1 kg General appearance: PRESENT: no acute distress, well-developed, well-nourished Head exam: PRESENT: atraumatic, normocephalic Eye exam: PRESENT: conjunctiva pink, EOMI, PERRLA Ear exam: PRESENT: normal external ear exam Mouth exam: PRESENT: moist, tongue midline Neck exam: PRESENT: full ROM Respiratory exam: PRESENT: clear to auscultation alvaro Cardiovascular exam: PRESENT: RRR, +S1, +S2 GI/Abdominal exam: PRESENT: soft Rectal exam: PRESENT: deferred Neurological exam: PRESENT: alert, awake, oriented to person, oriented to place , oriented to time, oriented to situation, CN II-XII grossly intact Psychiatric exam: PRESENT: appropriate affect, normal mood Skin exam: PRESENT: dry, intact, warm Results Laboratory Results: 09/03/16 14:15 09/03/16 14:15 Impressions: Chest X-Ray 09/03/16 00:00 IMPRESSION: NO ACUTE RADIOGRAPHIC FINDING IN THE CHEST. Head CT 09/03/16 00:00 IMPRESSION: NO ACUTE INTRACRANIAL PROCESS. NO SIGNIFICANT CHANGE FROM PRIOR STUDY
[2016-09-04] MEDS ORDERED: INSULIN GLARGINE,HUM.REC.ANLOG 1,000 UNIT/10 ML UNIT SUBCUT SCH ×2 (18:00)
== END 2016-09-04 19:13 | disposition home or self-care (01) ==
LOC: 3W 12:59
PROVIDERS: ADMIT Internal Medicine; ATTEND Internal Medicine
DX: E11.42 Type 2 diabetes mellitus with diabetic polyneuropathy (principal); N39.0 Urinary tract infection, site not specified; I10 Essential (primary) hypertension; K21.9 Gastro-esophageal reflux disease without esophagitis; J45.909 Unspecified asthma, uncomplicated; J44.9 Chronic obstructive pulmonary disease, unspecified; Z87.891 Personal history of nicotine dependence; Z79.84 Long term (current) use of oral hypoglycemic drugs; Z79.4 Long term (current) use of insulin
CPT/HCPCS: 36415; 87040; 87086; 84439; 82962 ×2; 84443; 85027; 80076; 80048; 81001; 83036; 71010; 70450; G0378 ×2; G0379; J3490 ×12; J1815

== ENCOUNTER → 2017-04-29 | Outpatient (CLI) | payer MEDICAID ==
--- NOTE | 2017-04-29 13:52 | RADIOLOGY REPORT (SQ) ---
EXAM DESCRIPTION: KNEE LEFT 2 VIEWS COMPLETED DATE/TIME: 04/29/2017 1:15 pm REASON FOR STUDY: PAIN IN LEFT KNEE M25.562 PAIN IN LEFT KNEE COMPARISON: 10/16/2015 NUMBER OF VIEWS: Two views. TECHNIQUE: AP and lateral radiographic images acquired of the left knee. LIMITATIONS: None. FINDINGS: MINERALIZATION: Normal. BONES: No acute fracture or dislocation. No worrisome bone lesions. JOINT: Moderate patellofemoral and medial compartment joint space narrowing and bony spurring. Bony spurring along the lateral femoral condyles and lateral tibial plateau without joint space narrowing. Bony spurring along the tibial spines. No joint effusion SOFT TISSUES: No soft tissue swelling. No radio-opaque foreign body. OTHER: No other significant finding. IMPRESSION: No joint effusion Osteoarthritis TECHNICAL DOCUMENTATION: JOB ID: [id number] [employer]- All Rights Reserved
== END ==
LOC: OD 12:49
PROVIDERS: ATTEND Internal Medicine
DX: M25.562 Pain in left knee (principal)

== ENCOUNTER → 2017-05-05 | Outpatient (CLI) | payer MEDICAID ==
--- NOTE | 2017-05-05 11:01 | RADIOLOGY REPORT (SQ) ---
EXAM DESCRIPTION: IVP W/WO TOMOGRAMS COMPLETED DATE/TIME: 05/05/2017 9:37 am REASON FOR STUDY: UTI (N39.0) N39.0 URINARY TRACT INFECTION, SITE NOT SPECIFIED COMPARISON: None. NUMBER OF VIEWS: 8 TECHNIQUE: A supervisor engraving view was obtained initially. 100 Ml of Isovue 300. contrast was injected intrave nously. Subsequent timed images of the abdomen and pelvis were obtained. RENAL FUNCTION: Creatinine 1.0 LIMITATIONS: Overlying stool and bowel gas. FINDINGS: BUTTER MELTER FILM: The supervisor engraving film demonstrates no definite renal calculi. IMMEDIATE POST INJECTION: Following injection of intravenous contrast there is prompt bilateral dinora l function with excretion of contrast into non-dilated collecting system. Urinary bladder is unremar kable POST VOID: Small post void bladder residual. No evidence of uretal outflow obstruction. OTHER: No other significant finding. IMPRESSION: BILATERAL FUNCTIONING KIDNEYS OF NORMAL SIZE. NO EVIDENCE OF OBSTRUCTIVE UROPATHY. TECHNICAL DOCUMENTATION: JOB ID: [id number] [employer]- All Rights Reserved
== END ==
LOC: RAD 06:43
PROVIDERS: ATTEND Internal Medicine
DX: N39.0 Urinary tract infection, site not specified (principal)
CPT/HCPCS: 74400; 82565

== ENCOUNTER 2017-06-03 09:00 | Emergency (ER) | payer MEDICAID ==
--- NOTE | 2017-06-03 09:33 | ER Document Report ---
ED Blood Pressure Problem - General Chief Complaint: High Blood Pressure Stated Complaint: BLOOD PRESSURE PROBLEMS Time Seen by Provider: 06/03/17 09:19 Mode of Arrival: Ambulatory Information source: Patient, Relative, [facility] Records Notes: This 62-year-old female patient comes emergency room complaining of feeling bad last night. She reports she had fever, her vagina was tiffany and she has a cough with sinus pressure and headache in the forehead and behind her eyes. She describes a cough is a green productive cough. She did get a flu shot this year. She is concerned about an E. coli urinary tract infection. She had urine culture on 04/08/2017 that showed an E. coli that was resistant to most oral antibiotics. She never came to the hospital to get treated. On 11/12/2016 she had a Klebsiella urinary tract infection that was sensitive to most oral antibiotics tested. On 09/16/2016 she had an E. coli infection that was sensitive to almost all oral antibiotics that were tested. She did have a negative IVP pyelogram done on 05/05/2017. There are no other records of any urine being tested after the 04/08/2017 culture showing the resistant E. coli was done. She also reports her blood pressure was 210/110 at home this morning, she did not take her blood pressure medications this morning but she did bring them with her. After she arrived in the emergency room her blood pressure was still elevated but not that high. She took her blood pressure medications and 10 minutes later her blood pressure was 155/96. TRAVEL OUTSIDE OF THE [place] IN LAST 30 DAYS: No - Related Data Allergies/Adverse Reactions: kiwi [Kiwi (Actinidia Chinensis)] Allergy (Severe, Verified 06/03/17 09:02) tongue swelling and bumps on tongue propoxyphene napsylate [From Darvocet-N 100] Allergy (Severe, Verified 06/03/17 09:02) VOMITING, SWELLING tetracycline [Tetracycline] Allergy (Severe, Verified 06/03/17 09:02) BUMPS ON BODY trimethoprim [From Bactrim] Allergy (Severe, Verified 06/03/17 09:02) PT STATES HER "BODY QUINONEZ UP." sulfamethoxazole [From Bactrim] Allergy (Intermediate, Verified 06/03/17 09:02) PT STATES HER "BODY QUINONEZ UP. strawberry [[place]] Allergy (Mild, Verified 06/03/17 09:02) bumps and sores on tongue ciprofloxacin [From Cipro] Allergy (Verified 06/03/17 09:02) Psychosis nuts Allergy (Mild, Uncoded 06/03/17 09:02) walnuts. causes tongue swelling pineapples Allergy (Mild, Uncoded 06/03/17 09:02) tongue swelling and bumps on tongue Past Medical History - General Information source: Patient, Relative, [facility] Records - Social History Smoking Status: Never Smoker Cigarette use (# per day): No Chew tobacco use (# tins/day): No Smoking Education Provided: No Frequency of alcohol use: None Drug Abuse: None Occupation: Unemployed Lives with: Family Family History: Reviewed & Not Pertinent Patient has suicidal ideation: No Patient has homicidal ideation: No - Past Medical History Cardiac Medical History: Reports: Hx Hypertension Denies: Hx Heart Attack Pulmonary Medical History: Reports: Hx Asthma, Hx COPD, Hx Pneumonia EENT Medical History: Reports: None Neurological Medical History: Reports: None Endocrine Medical History: Reports: Hx Diabetes Mellitus Type 2 Renal/ Medical History: Reports: None GI Medical History: Reports: Hx Gastroesophageal Reflux Disease Musculoskeltal Medical History: Reports Hx Arthritis - DDD, BACK AND KNEES Psychiatric Medical History: Reports: Hx Bipolar Disorder, Hx Depression, Hx Schizophrenia - "borderline" Past Surgical History: Reports: Hx Section, Hx Cholecystectomy, Hx Herniorrhaphy - Immunizations Hx Diphtheria, Pertussis, Tetanus Vaccination: Yes - HAD PNEUMONIA VACCINE-NOT SURE OF YEAR Hx Pneumococcal Vaccination: 06/02/09 Review of Systems - Review of Systems Constitutional: Fever EENT: Sinus pressure, Sinus discharge Cardiovascular: No symptoms reported Respiratory: Cough, Sputum Gastrointestinal: No symptoms reported Genitourinary: No symptoms reported Female Genitourinary: Post menopausal Musculoskeletal: No symptoms reported Skin: No symptoms reported Hematologic/Lymphatic: No symptoms reported Neurological/Psychological: See HPI, Headaches Physical Exam - Vital signs Vitals: Temp Pulse Resp BP Pulse Ox 99.2 F 101 H 18 187/94 H 92 06/03/17 09:04 06/03/17 09:04 06/03/17 09:04 06/03/17 09:04 06/03/17 09:04 Interpretation: Hypertensive - General General appearance: Appears well, Alert In distress: None - HEENT Head: Normocephalic, Atraumatic, Tenderness - Forehead muscles are tender to palpate. There is tenderness to palpate over the maxillary sinuses. Eyes: Normal Pupils: PERRL Sinus: Tenderness Mucous membranes: Normal Pharynx: Normal Neck: Normal - Respiratory Respiratory status: No respiratory distress Breath sounds: Rhonchi - There is some rhonchi and perhaps a little wheezing when the patient takes a deep breath and coughs - Cardiovascular Rhythm: Regular Heart sounds: Normal auscultation Murmur: No - Back Back: Normal - Extremities General upper extremity: Normal inspection General lower extremity: Normal inspection - Neurological Neuro grossly intact: Yes - Psychological Associated symptoms: Normal affect, Normal mood - Skin Skin Temperature: Warm Skin Moisture: Dry Skin Color: Normal Course - Re-evaluation Re-evalutation: 06/03/17 11:06 The patient is urinalysis suggest she still has urinary tract infection. She was allergic to almost every oral medication available for the E. coli infection on 04/08/2017. The E. coli was sensitive to third-generation cephalosporin such as Rocephin. I was able to find 3 oral medications that have similar coverage and the least expensive one was Omnicef or cefdinir for about $35 for 10 day supply. - Vital Signs Vital signs: Temp Pulse Resp BP Pulse Ox 99.2 F 96 16 155/96 H 97 06/03/17 09:04 06/03/17 09:19 06/03/17 09:19 06/03/17 09:19 06/03/17 09:19 - Laboratory Result Diagrams: 06/03/17 09:40 06/03/17 09:40 Laboratory results interpreted by me: 06/03/17 06/03/17 06/03/17 09:40 09:40 09:40 RBC 5.66 H MCV 75 L MCH 23.9 L MCHC 31.8 L RDW 16.5 H Sodium 145.3 H Potassium 5.1 H BUN 24 H Est GFR (Non-Af Amer) 55 L Glucose 197 H Direct Bilirubin 1.0 H AST 69 H ALT 72 H Alkaline Phosphatase 202 H Ur Leukocyte Esterase MODERATE H Discharge - Discharge Clinical Impression: Viral upper respiratory tract infection with cough Urinary tract infection Qualifiers: Urinary tract infection type: acute cystitis Hematuria presence: without hematuria Qualified Code(s): N30.00 - Acute cystitis without hematuria Condition: Stable Disposition: HOME, SELF-CARE Additional Instructions: Upper Respiratory Illness You have a viral infection of the respiratory passages -- a "cold." This common infection causes nasal congestion, drainage, and often sore throat and cough. It is caused by a virus and is highly contagious. The disease usually lasts a week or more, though the worst symptoms are usually over in 3 or 4 days. There is no "cure" for the viral infection -- it must run its course. If there is a complication, such as bacterial infection in the nose, sinuses, middle ear, or bronchial tubes, antibiotics may be required, but antibiotics won 't affect the virus. If you smoke, you should STOP!! Drink plenty of fluids. A humidifier may help. An expectorant medication or decongestant may make you more comfortable. Use acetaminophen or ibuprofen for fever or aches. See the doctor if fever persists over two or three days, if there is any significant worsening of your symptoms, or if you simply fail to improve as expected. Urinary Tract Infection Your evaluation indicates that you have a urinary tract infection. This is due to germs growing in the bladder. This is a common problem. This infection usually responds quickly to antibiotics. Your antibiotic should be taken exactly as prescribed. Drink plenty of fluids -- three to four quarts a day. Occasionally, a bladder anesthetic will be prescribed to help stop the feeling of urgency until the antibiotic has a chance to clear the infection. This may cause your urine to be dark orange. Certain urine infections require a culture. If the doctor obtained a culture, the results will be back in two days. You should call to see if a change in treatment is needed. A repeat urinalysis after you finish treatment is often recommended. The physician will let you know if further testing is required. Call the doctor if you develop fever, chills, flank pain, inability to urinate, or blood in the urine. //////////////////////////////////////////////////////////////////////////////// //////////////////////////////////////////////////////////// Take the medication as prescribed. Drink lots of fluids throughout the day in the evening. Try Robitussin-DM to help suppress your cough. Take Tylenol for pain and fever. Follow-up with your doctor if not improving. RETURN TO THE EMERGENCY ROOM IF ANY NEW OR WORSENING SYMPTOMS. Prescriptions: Cefdinir [Omnicef 300 mg Capsule] 1 cap PO BID #20 capsule
[2017-06-03 10:00] LABS: ABSOLUTE BASOPHILS # (AUTO) 0.1 10^3/uL (0.0-0.2); ABSOLUTE EOSINOPHILS # (AUTO) 0.2 10^3/uL (0.0-0.6); ABSOLUTE MONOCYTES (AUTO) 0.4 10^3/uL (0.1-1.4); ABSOLUTE NEUT (AUTO) 5.3 10^3/uL (1.7-8.2); BASOPHILS % (AUTO) 0.7 % (0-2); EOSINOPHILS % (AUTO) 2.9 % (0-6); HEMATOCRIT 42.5 % (36.0-47.0); HEMOGLOBIN 13.5 g/dL (12.0-15.5); LYMPHOCYTES % (AUTO) 25.3 % (13-45); MEAN CORPUSCULAR HEMOGLOBIN 23.9 pg (27.0-33.4); MEAN CORPUSCULAR HGB CONC 31.8 g/dL (32.0-36.0); MEAN CORPUSCULAR VOLUME 75 fl (80-97); MONOCYTES % (AUTO) 4.8 % (3-13); PLATELET COUNT 273 10^3/uL (150-450); RED BLOOD COUNT 5.66 10^6/uL (3.72-5.28); RED CELL DISTRIBUTION WIDTH 16.5 % (11.5-14.0); SEGMENTED NEUTROPHILS % (AUTO) 66.3 % (42-78); TOTAL CELLS COUNTED % (AUTO) 100 %
[2017-06-03 10:20] LABS: ALANINE AMINOTRANSFERASE 72 U/L (9-52); ALBUMIN 4.2 g/dL (3.5-5.0); ALKALINE PHOSPHATASE 202 U/L (38-126); ANION GAP 13 (5-19); ASPARTATE AMINO TRANSFERASE 69 U/L (14-36); BILIRUBIN,TOTAL 1.2 mg/dL (0.2-1.3); BLOOD UREA NITROGEN 24 mg/dL (7-20); CALCIUM 10.2 mg/dL (8.4-10.2); CARBON DIOXIDE 29 mmol/L (22-30); CHLORIDE 103 mmol/L (98-107); GLUCOSE 197 mg/dL (75-110); POTASSIUM 5.1 mmol/L (3.6-5.0); SODIUM 145.3 mmol/L (137-145); TOTAL PROTEIN 7.5 g/dL (6.3-8.2)
[2017-06-03 10:41] LABS: APPEARANCE,URINE CLEAR; BILIRUBIN,URINE NEGATIVE (NEGATIVE); COLOR,URINE YELLOW; GLUCOSE, URINE NEGATIVE (NEGATIVE); KETONES,URINE NEGATIVE (NEGATIVE); LEUKOCYTE ESTERASE,URINE MODERATE (NEGATIVE); NITRITE,URINE NEGATIVE (NEGATIVE); PROTEIN,URINE NEGATIVE (NEGATIVE); URINE SPECIFIC GRAVITY 1.006; UROBILINOGEN,URINE NEGATIVE mg/dL (<2.0)
[2017-06-03 11:31] VITALS: BP 150/68
== END 2017-06-03 11:44 | disposition home or self-care (01) ==
LOC: ER 09:00
DX: J06.9 Acute upper respiratory infection, unspecified (principal); N30.00 Acute cystitis without hematuria; R50.9 Fever, unspecified; J44.9 Chronic obstructive pulmonary disease, unspecified; E11.9 Type 2 diabetes mellitus without complications; I10 Essential (primary) hypertension; Z91.018 Allergy to other foods; Z88.2 Allergy status to sulfonamides; Z91.09 Other allergy status, other than to drugs and biological substances; Z90.49 Acquired absence of other specified parts of digestive tract
CPT/HCPCS: 36415; 80053; 81001; 85025; 87040; 87086; 87088; 87186; 99283

== ENCOUNTER 2017-11-03 03:29 | Emergency (ER) | payer MEDICAID ==
[2017-11-03] MEDS ORDERED: ACETAMINOPHEN 325 MG TABLET PO ONE (04:18)
[2017-11-03] MEDS ORDERED: ONDANSETRON HCL INJ/PF 4 MG/2 ML SDV IV ONE (04:21)
--- NOTE | 2017-11-03 04:23 | ER Document Report ---
ED General - General Chief Complaint: Fall Stated Complaint: FALL Time Seen by Provider: 11/03/17 03:55 TRAVEL OUTSIDE OF THE [place] IN LAST 30 DAYS: No - HPI Notes: Patient is a 62-year-old female with a history of type 2 diabetes, hypertension , hypothyroidism, anxiety/depression, bipolar, obesity who presents to the ED with son complaining of headache, neck pain, and swollen areas on the scalp status post fall prior to arrival. Patient states that she was walking in her living room when she tripped over a pillow and hit the back of her head/neck off of the table. Patient states that she did not have any loss of consciousness or vomiting. Patient states that she has had some dizziness and nausea since then. Patient does recall the entire at this point. Patient states that she got up and walked to her son's room and knocked on the door and they brought her to the emergency department at that time. Grandson heard the ' thud' in the other room and then heard her knocking on the door soon after. Son states that she is acting a little more sluggish than normal. Otherwise, they have no other concerns or complaints at this time. Pt states she has a chronic intermittent UTi as well, but currently only has increase in frequency. Denies any fever, changes in vision/mentation/hearing, URI, sore throat, chest pain, palpitations, syncope, cough, shortness of breath, wheeze, dyspnea, abdominal pain, vomiting/diarrhea, urinary retention, dysuria, hematuria, numbness/tingling, saddle anesthesia, muscle paralysis/weakness, or rash. - Related Data Allergies/Adverse Reactions: kiwi [Kiwi (Actinidia Chinensis)] Allergy (Severe, Verified 11/03/17 05:42) tongue swelling and bumps on tongue propoxyphene napsylate [From Darvocet-N 100] Allergy (Severe, Verified 11/03/17 05:42) VOMITING, SWELLING tetracycline [Tetracycline] Allergy (Severe, Verified 11/03/17 05:42) BUMPS ON BODY trimethoprim [From Bactrim] Allergy (Severe, Verified 11/03/17 05:42) PT STATES HER "BODY QUINONEZ UP." sulfamethoxazole [From Bactrim] Allergy (Intermediate, Verified 11/03/17 05:42) PT STATES HER "BODY QUINONEZ UP. strawberry [[place]] Allergy (Mild, Verified 11/03/17 05:42) bumps and sores on tongue ciprofloxacin [From Cipro] Allergy (Verified 11/03/17 05:42) Psychosis nuts Allergy (Mild, Uncoded 06/03/17 09:02) walnuts. causes tongue swelling pineapples Allergy (Mild, Uncoded 06/03/17 09:02) tongue swelling and bumps on tongue Past Medical History - Social History Smoking Status: Unknown if Ever Smoked Family History: Reviewed & Not Pertinent - Past Medical History Cardiac Medical History: Reports: Hx Hypertension Denies: Hx Heart Attack Pulmonary Medical History: Reports: Hx Asthma, Hx COPD, Hx Pneumonia Denies: Hx Bronchitis Neurological Medical History: Denies: Hx Cerebrovascular Accident, Hx Seizures Endocrine Medical History: Reports: Hx Diabetes Mellitus Type 2 Renal/ Medical History: Denies: Hx Peritoneal Dialysis GI Medical History: Reports: Hx Gastroesophageal Reflux Disease Musculoskeltal Medical History: Reports Hx Arthritis - DDD, BACK AND KNEES Psychiatric Medical History: Reports: Hx Bipolar Disorder, Hx Depression, Hx Schizophrenia - "borderline" Past Surgical History: Reports: Hx Section, Hx Cholecystectomy, Hx Herniorrhaphy - Immunizations Hx Diphtheria, Pertussis, Tetanus Vaccination: Yes - HAD PNEUMONIA VACCINE-NOT SURE OF YEAR Hx Pneumococcal Vaccination: 06/02/09 Review of Systems - Review of Systems -: Yes All other systems reviewed and negative Physical Exam - Vital signs Vitals: Temp Pulse Resp BP Pulse Ox 98.9 F 103 H 17 159/93 H 94 11/03/17 03:37 11/03/17 03:37 11/03/17 03:37 11/03/17 03:37 11/03/17 03:37 - Notes Notes: PHYSICAL EXAMINATION: GENERAL: Well-appearing, well-nourished and in no acute distress. A&Ox4. Answers questions appropriately. HEAD: There are 2 hematoma areas to the postero-occipital scalp. + tenderness. No macias sign. EYES: Pupils equal round and reactive to light, extraocular movements intact, sclera anicteric, conjunctiva are normal. No raccoon eyes/entrapment. No nystagmus. Vis new intact. ENT: EAC clear b/l. TM's intact b/l without erythema, fluid, or perforation. Nares patent and without discharge. oropharynx clear without exudates. No tonsilar hypertrophy or erythema. Moist mucous membranes. No sinus tenderness. No hemotympanum/CSF discharge. NECK: Normal range of motion, supple without lymphadenopathy. No rigidity. + midline tenderness. Chest: No flail chest. equal rise/fall. Non-tender LUNGS: Breath sounds clear to auscultation bilaterally and equal. No wheezes rales or rhonchi. HEART: Regular rate and rhythm without murmurs, rubs, gallops. ABDOMEN: Soft, nontender, nondistended abdomen. No guarding, no rebound. No masses appreciated. Normal bowel sounds present. No CVA tenderness bilaterally. Musculoskeletal: Ext b/l: FROM to passive/active. Strength 5+/5. No deficits noted. No bony tenderness of extremities. Back: FROM to passive/active. Strength 5+/5. No vertebral point tenderness, stepoffs, or deformities. No other bony tenderness or ecchymosis. Extremities: No cyanosis, clubbing, or edema b/l. Peripheral pulses 2+. Capillary refill less than 2 seconds. NEUROLOGICAL: NIH 0. GCS 15. Cranial nerves grossly intact. Normal speech, ataxic gait. Normal sensory, motor exams. Reflexes 2+ b/l. ELOISE's negative. Pronator drift negative. Heel/edmondson, finger/nose wnl. PSYCH: Normal mood, normal affect. SKIN: Warm, Dry, normal turgor, no rashes or lesions noted. Course - Re-evaluation Re-evalutation: 11/03/17 04:27 C-collar placed after eval. CT head/c-spine ordered Labs and zofran/tylenol also ordered Vitals currently acceptable. No gross focal neurological deficits at this time. 11/03/17 06:26 Patient is an afebrile, well-hydrated, 62-year-old female who presents to the ED with an acute UTI, 2 hematomas to the scalp, headache, cervicalgia status post injury. Vitals are acceptable. PE is otherwise unremarkable for any focal neurological deficits. See UA/UC pending. CBC, coags, CMP unremarkable at this time. CT scan of the head and cervical spine were unremarkable for any acute pathology. C-collar was removed. Patient received Tylenol p.o. initially as well as Zofran. Motrin ordered. Pt states that she is feeling better overall. NIH 0, GCS 15, cranial nerves grossly intact. Patient has no significant tachycardia, tachypnea, or hypoxia. She is tolerating p.o. without difficulties. She is nontoxic-appearing. I performed multiple rechecks of the patient throughout her stay without decline in neurological functioning or any other deterioration appreciated. No other labs or imaging warranted at this time based on H&P. Low suspicion for any acute glaucoma, temporal arteritis, meningitis, intracranial hemorrhage, ischemic stroke, disc herniation causing severe spinal stenosis, or fracture at this time. Patient is aware that her condition can change from initial presentation and that she needs to monitor symptoms closely for any acute changes. Rx for keflex. Conservative measures for symptoms otherwise. Recheck with your PCM in 1-2 days. Return to the ED with any worsening/concerning symptoms otherwise as reviewed in discharge. Patient is in agreement. - Vital Signs Vital signs: Temp Pulse Resp BP Pulse Ox 98.9 F 103 H 23 H 150/77 H 93 11/03/17 03:37 11/03/17 03:37 11/03/17 05:01 11/03/17 05:01 11/03/17 05:01 - Laboratory Result Diagrams: 11/03/17 05:20 11/03/17 05:20 Laboratory results interpreted by me: 11/03/17 11/03/17 05:20 05:20 Hgb 11.8 L Hct 35.9 L MCV 73 L MCH 24.0 L RDW 15.9 H Glucose 260 H AST 52 H ALT 55 H Alkaline Phosphatase 168 H Discharge - Discharge Clinical Impression: Acute UTI (urinary tract infection) Head injury Qualifiers: Encounter type: initial encounter Qualified Code(s): S09.90XA - Unspecified injury of head, initial encounter Condition: Stable Disposition: HOME, SELF-CARE Instructions: Urinary Tract Infection ([facility]), Cephalexin ([facility]), Head Injury Precautions ([facility]) Additional Instructions: Push fluids (i.e. water, cranberry juice) Proper hygenic technique Keep the skin clean Tylenol/ibuprofen as needed Take medications as directed F/u with your PCM in 3-5 days for a recheck Consider consult with a Urologist for ongoing/worsening symptoms. Return to the ED with any worsening symptoms and/or development of fever, worsening headache, chest pain, palpitations, syncope, shortness of breath, trouble breathing, abdominal pain, n/v/d, blood in stool/urine, loss of control of bowel/bladder, urinary retention, or other worsening symptoms that are concerning to you. Prescriptions: Cephalexin Monohydrate [Keflex 500 mg Capsule] 500 mg PO BID #14 capsule Forms: Elevated Blood Pressure Referrals: LISA DIETZ MD [Primary Care Provider] - 11/04/17
--- NOTE | 2017-11-03 05:01 | RADIOLOGY REPORT (SQ) ---
EXAM DESCRIPTION: CT of the head without contrast CLINICAL HISTORY: pain s/p fall COMPARISON: 09/03/2016 TECHNIQUE: Axial CT of the head obtained from the skull apex to the skull base without contrast. FINDINGS: No acute intracranial hemorrhage identified. No mass, mass effect, shift of the midline, abnormal extra-axial fluid collection or CT evidence of acute ischemic change identified. The ventricular system and sulcal spaces are mildly enlarged compatible with mild cerebral atrophy. Scattered areas of hypodensity throughout the supratentorial white matter are nonspecific and may be related to chronic small vessel ischemic change. The visualized paranasal sinuses and the mastoids are clear. Contusion in the posterior scalp subcutaneous soft tissues. No skull fracture identified. Visualized orbits and globes are unremarkable. Atherosclerotic calcification of the intracranial internal carotid arteries. DLP: 854.33 mGy-cm IMPRESSION: 1. No acute intracranial abnormality by CT criteria. This exam was performed according to our departmental dose-optimization program, which includes automated exposure control, adjustment of the mA and/or kV according to patient size and/or use of iterative reconstruction technique.
--- NOTE | 2017-11-03 05:04 | RADIOLOGY REPORT (SQ) ---
EXAM DESCRIPTION: CT of the cervical spine without contrast. CLINICAL HISTORY: pain s/p fall COMPARISON: 07/07/2015 TECHNIQUE: Axial CT of the cervical spine obtained without contrast. FINDINGS: Straightening of the cervical lordosis is likely secondary to patient positioning. The atlantoaxial, atlantodental, and occipitoatlantal intervals are preserved. No fracture identified. Vertebral body height preserved. Prevertebral soft tissues are unremarkable. Mild loss of intervertebral disc height at C4/5 through C6/C7. Endplate spondylosis and uncovertebral spurring. Spurring of the atlantoaxial articulation. Visualized skull base is intact. No fracture of the visualized facial bones. Visualized mastoid air cells and paranasal sinuses are well aerated. Visualized thyroid is unremarkable. No cervical lymphadenopathy. No pneumothorax in the visualized lung apices. DLP: 603.54 mGy-cm IMPRESSION: 1. No acute fracture or subluxation of the cervical spine. 2. Mild degenerative change of the cervical spine. This exam was performed according to our departmental dose-optimization program, which includes automated exposure control, adjustment of the mA and/or kV according to patient size and/or use of iterative reconstruction technique.
[2017-11-03 05:32] LABS: ABSOLUTE BASOPHILS # (AUTO) 0.1 10^3/uL (0.0-0.2); ABSOLUTE EOSINOPHILS # (AUTO) 0.2 10^3/uL (0.0-0.6); ABSOLUTE LYMPHOCYTES (AUTO) 2.3 10^3/uL (0.5-4.7); ABSOLUTE MONOCYTES (AUTO) 0.4 10^3/uL (0.1-1.4); ABSOLUTE NEUT (AUTO) 3.3 10^3/uL (1.7-8.2); BASOPHILS % (AUTO) 1.3 % (0-2); EOSINOPHILS % (AUTO) 2.6 % (0-6); HEMATOCRIT 35.9 % (36.0-47.0); HEMOGLOBIN 11.8 g/dL (12.0-15.5); LYMPHOCYTES % (AUTO) 36.5 % (13-45); MEAN CORPUSCULAR HGB CONC 32.8 g/dL (32.0-36.0); MEAN CORPUSCULAR VOLUME 73 fl (80-97); MONOCYTES % (AUTO) 5.9 % (3-13); PLATELET COUNT 190 10^3/uL (150-450); RED BLOOD COUNT 4.92 10^6/uL (3.72-5.28); RED CELL DISTRIBUTION WIDTH 15.9 % (11.5-14.0); SEGMENTED NEUTROPHILS % (AUTO) 53.7 % (42-78); TOTAL CELLS COUNTED % (AUTO) 100 %; WHITE BLOOD COUNT 6.2 10^3/uL (4.0-10.5)
[2017-11-03 05:38] LABS: INTERNATIONAL RATION (INR) 0.98; PROTHROMBIN TIME 13.5 SEC (11.4-15.4)
[2017-11-03 05:42] VITALS: BP 150/77
[2017-11-03] MEDS ORDERED: ONDANSETRON 4 MG TAB.RAPDIS PO ONE (06:01)
[2017-11-03 06:08] LABS: ALANINE AMINOTRANSFERASE 55 U/L (9-52); ALBUMIN 3.5 g/dL (3.5-5.0); ALKALINE PHOSPHATASE 168 U/L (38-126); ANION GAP 10 (5-19); ASPARTATE AMINO TRANSFERASE 52 U/L (14-36); BILIRUBIN,DIRECT 0.4 mg/dL (0.0-0.4); BILIRUBIN,TOTAL 0.4 mg/dL (0.2-1.3); BLOOD UREA NITROGEN 16 mg/dL (7-20); CALCIUM 9.7 mg/dL (8.4-10.2); CARBON DIOXIDE 29 mmol/L (22-30); CHLORIDE 101 mmol/L (98-107); GLUCOSE 260 mg/dL (75-110); POTASSIUM 4.8 mmol/L (3.6-5.0); SODIUM 140.2 mmol/L (137-145); TOTAL PROTEIN 6.8 g/dL (6.3-8.2)
[2017-11-03 06:23] LABS: APPEARANCE,URINE CLOUDY; BILIRUBIN,URINE NEGATIVE (NEGATIVE); COLOR,URINE YELLOW; GLUCOSE, URINE NEGATIVE (NEGATIVE); KETONES,URINE NEGATIVE (NEGATIVE); LEUKOCYTE ESTERASE,URINE LARGE (NEGATIVE); NITRITE,URINE POSITIVE (NEGATIVE); PROTEIN,URINE NEGATIVE (NEGATIVE); URINE SPECIFIC GRAVITY 1.011; UROBILINOGEN,URINE NEGATIVE mg/dL (<2.0)
[2017-11-03] MEDS ORDERED: IBUPROFEN 800 MG TABLET PO ONE (06:25)
== END 2017-11-03 07:00 | disposition home or self-care (01) ==
LOC: ER 03:29
DX: S09.90XA Unspecified injury of head, initial encounter (principal); N39.0 Urinary tract infection, site not specified; R51 Headache; M54.2 Cervicalgia; R22.0 Localized swelling, mass and lump, head; R42 Dizziness and giddiness; R11.0 Nausea; R35.0 Frequency of micturition; W01.190A Fall on same level from slipping, tripping and stumbling with subsequent striking against furniture, initial encounter; E11.9 Type 2 diabetes mellitus without complications; I10 Essential (primary) hypertension; E03.9 Hypothyroidism, unspecified; J44.9 Chronic obstructive pulmonary disease, unspecified
CPT/HCPCS: 99284; 36415; 87086; 85025; 85610; 85730; 87088; 80053; 81001; 87186; 70450; 72125; L0120; J3490 ×2; S0119

== ENCOUNTER → 2018-01-26 | Outpatient (CLI) | payer MEDICAID ==
--- NOTE | 2018-01-26 12:49 | RADIOLOGY REPORT (SQ) ---
EXAM DESCRIPTION: CHEST PA/LATERAL COMPLETED DATE/TIME: 01/26/2018 12:03 pm REASON FOR STUDY: PNEUMONIA, UNSPECIFIED ORGANISM COMPARISON: 09/03/2016 EXAM PARAMETERS: NUMBER OF VIEWS: two views TECHNIQUE: Digital Frontal and Lateral radiographic views of the chest acquired. RADIATION DOSE: NA LIMITATIONS: none FINDINGS: LUNGS AND PLEURA: No opacities, masses or pneumothorax. No pleural effusion. MEDIASTINUM AND HILAR STRUCTURES: No masses or contour abnormalities. HEART AND VASCULAR STRUCTURES: Heart normal size. No evidence for failure. BONES: No acute findings. HARDWARE: None in the chest. OTHER: No other significant finding. IMPRESSION: 1 No significant interval changes since the prior examination dated 09/03/2016. No acute findings. TECHNICAL DOCUMENTATION: JOB ID: [id number] [employer]- All Rights Reserved Reading location - IP/workstation name: [email or web address]
== END ==
LOC: OD 11:42
PROVIDERS: ATTEND Internal Medicine
DX: J18.9 Pneumonia, unspecified organism (principal)
CPT/HCPCS: 71046

== ENCOUNTER → 2018-11-16 | Outpatient (CLI) | payer MEDICARE, MEDICAID ==
--- NOTE | 2018-11-16 16:16 | RADIOLOGY REPORT (SQ) ---
EXAM DESCRIPTION: CT ABD/PELVIS WITH IV ORAL COMPLETED DATE/TIME: 11/16/2018 3:25 pm REASON FOR STUDY: R14.0 ABDOMINAL DISTENSION (GASEOUS) R14.0 ABDOMINAL DISTENSION (GASEOUS) R94.5 ABNORMAL RESULTS OF LIVER FUNCTION STUDIES COMPARISON: 02/28/2016 TECHNIQUE: CT scan of the abdomen and pelvis performed using helical scanning technique with dynamic intravenous contrast injection. Oral contrast. Images reviewed with lung, soft tissue, and bone win dows. Reconstructed coronal and sagittal MPR images reviewed. Delayed images for evaluation of the ur inary system also acquired. All images stored on PACS. All CT scanners at this facility use dose modulation, iterative reconstruction, and/or weight based d osing when appropriate to reduce radiation dose to as low as reasonably achievable (ALARA). [facility]: Dose Right [facility]: CareDose [facility]: Dose Right [facility]: Teradose 4D [facility]: InviBox CONTRAST TYPE AND DOSE: contrast/concentration: Isovue 350.00 mg/ml; Total Contrast Delivered: 100.0 ml; Total Saline Delivered: 72.0 ml RENAL FUNCTION: Creatinine 1.2 RADIATION DOSE: CT Rad equipment meets quality standard of care and radiation dose reduction techniq ues were employed. CTDIvol: 25.9 - 30.7 mGy. DLP: 2896 mGy-cm.. LIMITATIONS: None. FINDINGS: LOWER CHEST: No significant findings. No nodules or infiltrates. LIVER: Normal size. No masses. No dilated ducts. SPLEEN: Normal size. No focal lesions. PANCREAS: No masses. No significant calcifications. No adjacent inflammation or peripancreatic fluid collections. Pancreatic duct not dilated. GALLBLADDER: Surgically absent. ADRENAL GLANDS: No significant masses or asymmetry. RIGHT KIDNEY AND URETER: No solid masses. No significant calcifications. No hydronephrosis or hyd roureter. LEFT KIDNEY AND URETER: No solid masses. No significant calcifications. No hydronephrosis or hydr oureter. AORTA AND VESSELS: No aneurysm. No dissection. Renal arteries, SMA, celiac without stenosis. RETROPERITONEUM: No retroperitoneal adenopathy, hemorrhage or masses. BOWEL AND PERITONEAL CAVITY: No masses or inflammatory changes. No free fluid or peritoneal masses. APPENDIX: Normal. PELVIS: No mass. No free fluid. Normal bladder. ABDOMINAL WALL: No masses. No hernias. BONES: Lumbar degenerative disc changes. OTHER: No other significant finding. IMPRESSION: No acute finding in the abdomen or pelvis. Lumbar degenerative disc changes. TECHNICAL DOCUMENTATION: JOB ID: [id number] Quality ID # [id number]: Final reports with documentation of one or more dose reduction techniques (e.g., Au tomated exposure control, adjustment of the mA and/or kV according to patient size, use of iterative reconstruction technique) 2010 [employer]- All Rights Reserved Reading location - IP/workstation name: [email or web address]
== END ==
LOC: RAD 12:58
PROVIDERS: ATTEND Internal Medicine
DX: R14.0 Abdominal distension (gaseous) (principal); R94.5 Abnormal results of liver function studies; M51.36 Other intervertebral disc degeneration, lumbar region
CPT/HCPCS: 74177; 82565

== ENCOUNTER 2019-02-10 13:43 | Inpatient (IN) | payer MEDICARE, MEDICAID ==
[2019-02-10 15:42] LABS: HEMATOCRIT 36.8 % (36.0-47.0); HEMOGLOBIN 11.7 g/dL (12.0-15.5); MEAN CORPUSCULAR HEMOGLOBIN 22.9 pg (27.0-33.4); MEAN CORPUSCULAR HGB CONC 31.8 g/dL (32.0-36.0); MEAN CORPUSCULAR VOLUME 72 fl (80-97); PLATELET COUNT 231 10^3/uL (150-450); RED BLOOD COUNT 5.12 10^6/uL (3.72-5.28); RED CELL DISTRIBUTION WIDTH 17.4 % (11.5-14.0)
[2019-02-10 15:56] LABS: ANION GAP 11 (5-19); BLOOD UREA NITROGEN 18 mg/dL (7-20); CALCIUM 9.7 mg/dL (8.4-10.2); CARBON DIOXIDE 27 mmol/L (22-30); CHLORIDE 105 mmol/L (98-107); GLUCOSE 82 mg/dL (75-110); POTASSIUM 4.3 mmol/L (3.6-5.0)
[2019-02-10 16:21] LABS: APPEARANCE,URINE CLEAR; BILIRUBIN,URINE NEGATIVE (NEGATIVE); COLOR,URINE YELLOW; GLUCOSE, URINE NEGATIVE (NEGATIVE); KETONES,URINE NEGATIVE (NEGATIVE); LEUKOCYTE ESTERASE,URINE NEGATIVE (NEGATIVE); NITRITE,URINE NEGATIVE (NEGATIVE); PROTEIN,URINE NEGATIVE (NEGATIVE); URINE SPECIFIC GRAVITY 1.016; UROBILINOGEN,URINE NEGATIVE mg/dL (<2.0)
[2019-02-10] MEDS ORDERED: (PENDING PHARMACY ID) (Buspirone Hcl [Buspar 5 Mg Tablet] 5 MG) PO SCH (18:00)
[2019-02-10] MEDS ORDERED: (PENDING PHARMACY ID) (Hydroxyzine Hcl [Atarax 25 Mg Tablet] 25 MG) PO SCH (18:00)
[2019-02-10] MEDS ORDERED: (PENDING PHARMACY ID) (Ranitidine Hcl [Zantac] 150 MG) PO SCH (18:00)
[2019-02-10] MEDS ORDERED: (PENDING PHARMACY ID) (Lisinopril [Lisinopril] 20 MG) PO SCH (18:00)
[2019-02-10] MEDS ORDERED: (PENDING PHARMACY ID) (Tiotropium Br/Olodaterol Hcl [Stiolto Respimat Inhal Spray] 2 PUFF) IH SCH (18:00)
[2019-02-10] MEDS ORDERED: CLINDAMYCIN 600 MG/D5W RTU 600 MG/50 ML RTUPB IV SCH (19:00)
--- NOTE | 2019-02-10 19:43 | PDOC H&P ---
History of Present Illness Admission Date/PCP: 02/10/19 13:43 LISA DIETZ MD History of Present Illness: MELISSA OH I is a 63 year old female, She has type 2 diabetes mellitus, legally blind, body mass index 45. She came to the office for evaluation of swelling of the right foot with infected right big toe, on palpation of the toe it was fluctuant. I was concerned especially because she is a diabetic and she has infected foot, I felt the best approach is to admit to the hospital to initiate IV antibiotic and also consult surgery for incision and drainage of the right big toe which I believe is the the source of the infection Past Medical History Cardiac Medical History: Reports: Hypertension Pulmonary Medical History: Reports: Asthma, Chronic Obstructive Pulmonary Disease (COPD), Pneumonia Endocrine Medical History: Reports: Diabetes Mellitus Type 2 GI Medical History: Reports: Gastroesophageal Reflux Disease Musculoskeltal Medical History: Reports: Arthritis - DDD, BACK AND KNEES Psychiatric Medical History: Reports: Bipolar Disorder, Depression Hematology: Reports: Anemia Past Surgical History Past Surgical History: Reports: Section, Cholecystectomy, Herniorrhaphy Social History Smoking Status: Former Smoker Number of Years Smokin Last Time Smoked: 06/02/1989 Frequency of Alcohol Use: None Hx Recreational Drug Use: Yes Drugs: Marijuana Hx Prescription Drug Abuse: No Family History Family History: Reviewed & Not Pertinent Parental Family History Reviewed: Yes Children Family History Reviewed: Yes Sibling(s) Family History Reviewed.: Yes Medication/Allergy Home Medications: Buspirone HCl [Buspar 5 mg Tablet] 5 mg PO Q8 02/10/19 Clonazepam [Klonopin 1 mg Tablet] 1 mg PO Q8 02/10/19 Clonidine HCl [Catapres 0.1 mg Tablet] 0.1 mg PO Q12 02/10/19 Eszopiclone [Lunesta] 3 mg PO QHS 02/10/19 Folic Acid [Folvite 1 mg Tablet] 1 mg PO DAILY 02/10/19 Gabapentin [Neurontin 300 mg Capsule] 300 mg PO Q8 02/10/19 Hydroxyzine HCl [Atarax 25 mg Tablet] 25 mg PO Q8 02/10/19 Levothyroxine Sodium 25 mcg PO Q6AM 02/10/19 Lisinopril 20 mg PO DAILY 02/10/19 Metformin HCl [Glucophage] 1,000 mg PO BID 02/10/19 Metoprolol Succinate [Toprol XL 100 mg Tablet] 100 mg PO DAILY 02/10/19 Montelukast Sodium [Singulair 10 mg Tablet] 10 mg PO DAILY 02/10/19 Quetiapine Fumarate [Seroquel 100 mg Tablet] 100 mg PO QAM 02/10/19 Quetiapine Fumarate [Seroquel] 400 mg PO QHS 02/10/19 Ranitidine HCl [Zantac] 150 mg PO BID 02/10/19 Sitagliptin Phosphate [Januvia] 100 mg PO DAILY 02/10/19 Tiotropium Br/Olodaterol HCl [Stiolto Respimat Inhal [place]] 2 puff IH DAILY 04/20 Allergies/Adverse Reactions: kiwi [Kiwi (Actinidia Chinensis)] Allergy (Severe, Verified 11/03/17 05:42) tongue swelling and bumps on tongue propoxyphene napsylate [From Darvocet-N 100] Allergy (Severe, Verified 11/03/17 05:42) VOMITING, SWELLING tetracycline [Tetracycline] Allergy (Severe, Verified 11/03/17 05:42) BUMPS ON BODY trimethoprim [From Bactrim] Allergy (Severe, Verified 11/03/17 05:42) PT STATES HER "BODY QUINONEZ UP." sulfamethoxazole [From Bactrim] Allergy (Intermediate, Verified 11/03/17 05:42) PT STATES HER "BODY QUINONEZ UP. strawberry [[place]] Allergy (Mild, Verified 11/03/17 05:42) bumps and sores on tongue ciprofloxacin [From Cipro] Allergy (Verified 11/03/17 05:42) Psychosis nuts Allergy (Mild, Uncoded 06/03/17 09:02) walnuts. causes tongue swelling pineapples Allergy (Mild, Uncoded 06/03/17 09:02) tongue swelling and bumps on tongue Review of Systems Constitutional: ABSENT: chills, fever(s), headache(s), weight gain, weight loss Eyes: ABSENT: visual disturbances Ears: ABSENT: hearing changes Cardiovascular: ABSENT: chest pain, dyspnea on exertion, edema, orthropnea, palpitations Respiratory: ABSENT: cough, hemoptysis Gastrointestinal: ABSENT: abdominal pain, constipation, diarrhea, hematemesis, hematochezia, nausea, vomiting Genitourinary: ABSENT: dysuria, hematuria Musculoskeletal: ABSENT: joint swelling Integumentary: ABSENT: rash, wounds Neurological: ABSENT: abnormal gait, abnormal speech, confusion, dizziness, focal weakness, syncope Psychiatric: ABSENT: anxiety, depression, homidical ideation, suicidal ideation Endocrine: ABSENT: cold intolerance, heat intolerance, menstrual abnormalities, polydipsia, polyuria Hematologic/Lymphatic: ABSENT: easy bleeding, easy bruising, lymphadenopathy Physical Exam Vital Signs: Temp Pulse Resp BP Pulse Ox 97.3 F 90 18 151/79 H 96 02/10/19 18:56 02/10/19 18:56 02/10/19 18:56 02/10/19 18:56 02/10/19 18:56 Intake & Output 02/09/19 02/10/19 02/11/19 06:59 06:59 06:59 Intake Total 240 Balance 240 Weight 119 kg General appearance: PRESENT: no acute distress, well-developed, well-nourished Head exam: PRESENT: atraumatic, normocephalic Eye exam: PRESENT: conjunctiva pink, EOMI, PERRLA Ear exam: PRESENT: normal external ear exam Mouth exam: PRESENT: moist, tongue midline Neck exam: PRESENT: full ROM Respiratory exam: PRESENT: clear to auscultation alvaro Cardiovascular exam: PRESENT: RRR Pulses: PRESENT: normal dorsalis pedis pul, +2 pedal pulses bilateral Vascular exam: PRESENT: normal capillary refill GI/Abdominal exam: PRESENT: normal bowel sounds, soft Rectal exam: PRESENT: deferred Extremities exam: PRESENT: other - Infected right big toe Neurological exam: PRESENT: alert, awake, oriented to person, oriented to place, oriented to time, oriented to situation, CN II-XII grossly intact Psychiatric exam: PRESENT: appropriate affect, normal mood Skin exam: PRESENT: dry, intact, warm Results Laboratory Results: 02/10/19 15:27 02/10/19 15:27 02/10/19 02/10/19 02/10/19 15:27 15:27 15:30 WBC 10.0 RBC 5.12 Hgb 11.7 L Hct 36.8 MCV 72 L MCH 22.9 L MCHC 31.8 L RDW 17.4 H Plt Count 231 Sodium 142.5 Potassium 4.3 Chloride 105 Carbon Dioxide 27 Anion Gap 11 BUN 18 Creatinine 1.29 H Est GFR ( Amer) 50 L Glucose 82 Calcium 9.7 Urine Color YELLOW Urine Appearance CLEAR Urine pH 5.0 Ur Specific [place] 1.016 Urine Protein NEGATIVE Urine Glucose (UA) NEGATIVE Urine Ketones NEGATIVE Urine Blood NEGATIVE Urine Nitrite NEGATIVE Ur Leukocyte Esterase NEGATIVE Urine WBC (Auto) 0 Urine RBC (Auto) 1 Assessment & Plan - Diagnosis (1) Cellulitis of right foot Is this a current diagnosis for this admission?: Yes Plan: Start IV antibiotic clindamycin (2) Abscess of great toe of right foot Is this a current diagnosis for this admission?: Yes (3) Morbid (severe) obesity due to excess calories Is this a current diagnosis for this admission?: Yes (4) Type 2 diabetes mellitus 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
--- NOTE | 2019-02-10 19:45 | PDOC CONSULTATION ---
Consultation Consult Date: 02/10/19 Provider Consulted: LESLEY QUISPE Consult reason:: toe infection History of Present Illness Admission Date/PCP: 02/10/19 13:43 LISA DIETZ MD History of Present Illness: MELISSA OH I is a 63 year old female presents with rt great toe pain on and off for last couple of months noted the nail over the rt great toe has been changing colors. recently the toe has become red and pt was sent to hosp for iv abx. Past Medical History Cardiac Medical History: Reports: Hypertension Denies: Myocardial Infarction Pulmonary Medical History: Reports: Asthma, Chronic Obstructive Pulmonary Diseas e (COPD), Pneumonia Denies: Bronchitis Neurological Medical History: Denies: Seizures Endocrine Medical History: Reports: Diabetes Mellitus Type 2 GI Medical History: Reports: Gastroesophageal Reflux Disease Musculoskeltal Medical History: Reports: Arthritis - DDD, BACK AND KNEES Psychiatric Medical History: Reports: Bipolar Disorder, Depression Hematology: Reports: Anemia Past Surgical History Past Surgical History: Reports: Section, Cholecystectomy, Herniorrhaphy Social History Smoking Status: Former Smoker Number of Years Smokin Last Time Smoked: 06/02/1989 Frequency of Alcohol Use: None Hx Recreational Drug Use: Yes Drugs: Marijuana Hx Prescription Drug Abuse: No Family History Family History: Reviewed & Not Pertinent Parental Family History Reviewed: No Children Family History Reviewed: NA Sibling(s) Family History Reviewed.: NA Medication/Allergy Home Medications: Buspirone HCl [Buspar 5 mg Tablet] 5 mg PO Q8 02/10/19 Clonazepam [Klonopin 1 mg Tablet] 1 mg PO Q8 02/10/19 Clonidine HCl [Catapres 0.1 mg Tablet] 0.1 mg PO Q12 02/10/19 Eszopiclone [Lunesta] 3 mg PO QHS 02/10/19 Folic Acid [Folvite 1 mg Tablet] 1 mg PO DAILY 02/10/19 Gabapentin [Neurontin 300 mg Capsule] 300 mg PO Q8 02/10/19 Hydroxyzine HCl [Atarax 25 mg Tablet] 25 mg PO Q8 02/10/19 Levothyroxine Sodium 25 mcg PO Q6AM 02/10/19 Lisinopril 20 mg PO DAILY 02/10/19 Metformin HCl [Glucophage] 1,000 mg PO BID 02/10/19 Metoprolol Succinate [Toprol XL 100 mg Tablet] 100 mg PO DAILY 02/10/19 Montelukast Sodium [Singulair 10 mg Tablet] 10 mg PO DAILY 02/10/19 Quetiapine Fumarate [Seroquel 100 mg Tablet] 100 mg PO QAM 02/10/19 Quetiapine Fumarate [Seroquel] 400 mg PO QHS 02/10/19 Ranitidine HCl [Zantac] 150 mg PO BID 02/10/19 Sitagliptin Phosphate [Januvia] 100 mg PO DAILY 02/10/19 Tiotropium Br/Olodaterol HCl [Stiolto Respimat Inhal [place]] 2 puff IH DAILY 02/10/19 Allergies/Adverse Reactions: kiwi [Kiwi (Actinidia Chinensis)] Allergy (Severe, Verified 11/03/17 05:42) tongue swelling and bumps on tongue propoxyphene napsylate [From Darvocet-N 100] Allergy (Severe, Verified 11/03/17 05:42) VOMITING, SWELLING tetracycline [Tetracycline] Allergy (Severe, Verified 11/03/17 05:42) BUMPS ON BODY trimethoprim [From Bactrim] Allergy (Severe, Verified 11/03/17 05:42) PT STATES HER "BODY QUINONEZ UP." sulfamethoxazole [From Bactrim] Allergy (Intermediate, Verified 11/03/17 05:42) PT STATES HER "BODY QUINONEZ UP. strawberry [[place]] Allergy (Mild, Verified 11/03/17 05:42) bumps and sores on tongue ciprofloxacin [From Cipro] Allergy (Verified 11/03/17 05:42) Psychosis nuts Allergy (Mild, Uncoded 06/03/17 09:02) walnuts. causes tongue swelling pineapples Allergy (Mild, Uncoded 06/03/17 09:02) tongue swelling and bumps on tongue Review of Systems Constitutional: PRESENT: fatigue Eyes: ABSENT: as per HPI, visual disturbances, other Ears: ABSENT: as per HPI, hearing changes, other Nose, Mouth, and Throat: ABSENT: as per HPI, headache(s), mouth pain, sore throat, vertigo, other Breasts: ABSENT: as per HPI, other Cardiovascular: ABSENT: as per HPI, chest pain, dyspnea on exertion, edema, orthropnea, palpitations, other Musculoskeletal: PRESENT: other - right great toe pain, forefoot throbbing. Integumentary: ABSENT: as per HPI, diaphoresis, erythema, lesions, pruritus, rash, wounds, other Neurological: ABSENT: as per HPI, abnormal gait, abnormal movements, abnormal speech, confusion, convulsions, dizziness, focal weakness, frequent falls, lack of coordination, memory loss, numbness, paresthesias, restless legs, syncope, tingling, tremor(s), vertigo, weakness, other Psychiatric: ABSENT: as per HPI, anxiety, depression, hallucinations, homidical ideation, suicidal ideation, other Endocrine: ABSENT: as per HPI, cold intolerance, flushing, heat intolerance, menstrual abnormalities, polydipsia, polyphagia, polyuria, other Hematologic/Lymphatic: ABSENT: as per HPI, easy bleeding, easy bruising, lymphadenopathy, other Allergic/Immunologic: ABSENT: as per HPI, seasonal rhinorrhea, other Physical Exam Vital Signs: Temp Pulse Resp BP Pulse Ox 97.3 F 90 18 151/79 H 96 02/10/19 18:56 02/10/19 18:56 02/10/19 18:56 02/10/19 18:56 02/10/19 18:56 Intake & Output 02/09/19 02/10/19 02/11/19 06:59 06:59 06:59 Intake Total 240 Balance 240 Weight 119 kg Results Laboratory Results: 02/10/19 15:27 02/10/19 15:27 02/10/19 02/10/19 02/10/19 15:27 15:27 15:30 WBC 10.0 RBC 5.12 Hgb 11.7 L Hct 36.8 MCV 72 L MCH 22.9 L MCHC 31.8 L RDW 17.4 H Plt Count 231 Sodium 142.5 Potassium 4.3 Chloride 105 Carbon Dioxide 27 Anion Gap 11 BUN 18 Creatinine 1.29 H Est GFR ( Amer) 50 L Glucose 82 Calcium 9.7 Urine Color YELLOW Urine Appearance CLEAR Urine pH 5.0 Ur Specific [place] 1.016 Urine Protein NEGATIVE Urine Glucose (UA) NEGATIVE Urine Ketones NEGATIVE Urine Blood NEGATIVE Urine Nitrite NEGATIVE Ur Leukocyte Esterase NEGATIVE Urine WBC (Auto) 0 Urine RBC (Auto) 1 Assessment & Plan - Diagnosis (1) Paronychia of great toe, right Is this a current diagnosis for this admission?: Yes (2) Paronychia of great toe of right foot Is this a current diagnosis for this admission?: Yes - Plan Summary Plan Summary: possible right great toe paronychia infection recommend right great toenail excision and possible toe debridement explained risk benifits to pt including risk of spreading infection deep tissue infection possible need for toe or forefoot amputation she agrees to proceed.
[2019-02-10] MEDS: FOLIC ACID 1 MG TABLET PO SCH (19:50)
[2019-02-10] MEDS: LISINOPRIL 10 MG TABLET PO SCH (19:51)
[2019-02-10] MEDS: METOPROLOL SUCCINATE 50 MG TAB.SR.24H PO SCH (19:51)
[2019-02-10] MEDS: LEVOTHYROXINE SODIUM 0.025 MG TABLET PO SCH (19:51)
[2019-02-10] MEDS: CLONIDINE HCL 0.1 MG TABLET PO SCH (19:52)
[2019-02-10] MEDS: METFORMIN HCL 500 MG TABLET PO SCH (19:52)
[2019-02-10] MEDS: SITAGLIPTIN PHOSPHATE 50 MG TABLET PO SCH (19:52)
[2019-02-10] MEDS: FAMOTIDINE 20 MG TABLET PO SCH (19:53)
[2019-02-10] MEDS: MONTELUKAST SODIUM 10 MG TABLET PO SCH (19:54)
[2019-02-10] MEDS: CLINDAMYCIN 600 MG/D5W RTU 600 MG/50 ML RTUPB IV SCH (20:00)
[2019-02-10] MEDS ORDERED: (PENDING PHARMACY ID) (Quetiapine Fumarate [Seroquel] 400 MG) PO SCH (22:00)
[2019-02-10] MEDS: HYDROXYZINE HCL 10 MG TABLET PO SCH (22:12)
[2019-02-10] MEDS: BUSPIRONE HCL 10 MG TABLET PO SCH (22:12)
[2019-02-10] MEDS: CLONAZEPAM 1 MG TABLET PO SCH (22:12)
[2019-02-10] MEDS: QUETIAPINE FUMARATE 100 MG TABLET PO SCH (22:13)
[2019-02-10] MEDS: GABAPENTIN 300 MG CAPSULE PO SCH (22:13)
[2019-02-10] MEDS: ZOLPIDEM TARTRATE 5 MG TABLET PO SCH (22:15)
[2019-02-10] MEDS: OXYCODONE-ACETAMINOPHEN 5-325 MG TABLET PO PRN (22:23)
[2019-02-11] MEDS: CLINDAMYCIN 600 MG/D5W RTU 600 MG/50 ML RTUPB IV SCH ×3 (02:16→17:59)
[2019-02-11] MEDS: GABAPENTIN 300 MG CAPSULE PO SCH ×4 (05:31→21:57)
[2019-02-11] MEDS: CLONAZEPAM 1 MG TABLET PO SCH ×4 (05:31→21:57)
[2019-02-11] MEDS: LEVOTHYROXINE SODIUM 0.025 MG TABLET PO SCH (05:32)
[2019-02-11] MEDS: CLONIDINE HCL 0.1 MG TABLET PO SCH ×2 (05:32→18:05)
[2019-02-11] MEDS: BUSPIRONE HCL 10 MG TABLET PO SCH ×4 (05:32→21:57)
[2019-02-11] MEDS: HYDROXYZINE HCL 10 MG TABLET PO SCH ×4 (05:33→21:56)
[2019-02-11] MEDS: OXYCODONE-ACETAMINOPHEN 5-325 MG TABLET PO PRN ×3 (05:56→21:46)
[2019-02-11] MEDS: METOPROLOL SUCCINATE 50 MG TAB.SR.24H PO SCH (09:57)
[2019-02-11] MEDS: LISINOPRIL 10 MG TABLET PO SCH (09:57)
[2019-02-11] MEDS: SITAGLIPTIN PHOSPHATE 50 MG TABLET PO SCH (09:58)
[2019-02-11] MEDS: FAMOTIDINE 20 MG TABLET PO SCH ×2 (09:59→18:06)
[2019-02-11] MEDS: FOLIC ACID 1 MG TABLET PO SCH (09:59)
[2019-02-11] MEDS: METFORMIN HCL 500 MG TABLET PO SCH ×2 (09:59→18:05)
[2019-02-11] MEDS: QUETIAPINE FUMARATE 100 MG TABLET PO SCH ×2 (10:05→21:58)
[2019-02-11] MEDS ORDERED: PROPOFOL INJ 200 MG/20 ML VIAL IV ONE (12:50)
[2019-02-11] MEDS ORDERED: MIDAZOLAM 2 MG/2 ML INJ ONE (12:50)
[2019-02-11] MEDS ORDERED: FENTANYL CITRATE INJ/PF 100 MCG/2 ML AMPUL ONE (12:50)
[2019-02-11] MEDS ORDERED: LIDOCAINE 1% INJ-PF (10 MG/ML) 30 ML SDV ONE (13:21)
[2019-02-11] MEDS ORDERED: DIPHENHYDRAMINE HCL 50 MG/ML VIAL IV PRN (13:22)
[2019-02-11] MEDS ORDERED: MORPHINE SULFATE 10 MG/ML INJ IV PRN (13:22)
[2019-02-11] MEDS ORDERED: PROMETHAZINE HCL INJ 25 MG/1 ML VIAL IV PRN (13:22)
[2019-02-11] MEDS ORDERED: MEPERIDINE HCL/PF INJ 25 MG/1 ML DISP.SYRIN IV PRN (13:22)
[2019-02-11] MEDS ORDERED: OXYCODONE-ACETAMINOPHEN 5-325 MG TABLET PO PRN ×2 (13:22)
[2019-02-11] MEDS ORDERED: FENTANYL CITRATE INJ/PF 100 MCG/2 ML AMPUL IV PRN ×3 (13:22)
--- NOTE | 2019-02-11 14:24 | Operative Report ---
Operative Report DATE OF SURGERY: 02/11/19 PREOPERATIVE DIAGNOSIS: Infected right big toenail with abscess POSTOPERATIVE DIAGNOSIS: Same OPERATION: Removal of bigtoe nail and debridement SURGEON: [place] ANESTHESIA: LMAC TISSUE REMOVED OR ALTERED: toenail COMPLICATIONS: none ESTIMATED BLOOD LOSS: 2 ccs INTRAOPERATIVE FINDINGS: infected base of right big toenail with no gross abscess formation PROCEDURE: Shunt was placed in supine position and after adequate IV sedation the right big toenail area was then prepped and draped in the usual sterile fashion. Appropriate timeout was then called. Local anesthesia infiltrated along the base of the big toenail. The toenail was subsequently bluntly dissected underneath with a hemostat and subsequently pulled out. Some necrotic or tissue on each side of the nail were cut to allow to allow removal of the whole nail. No gross pus noted underneath the toenail noted. The area was subsequently packed with iodoform gauze and covered with 4 x 4 and wrapped with the 2 inch Kerlix. Patient tolerated procedure well. Needle instrument sponge count were all correct and estimated blood loss about 2 cc. Patient brought to recovery room satisfactory condition.
[2019-02-11] MEDS: MONTELUKAST SODIUM 10 MG TABLET PO SCH (18:06)
[2019-02-11] MEDS: ZOLPIDEM TARTRATE 5 MG TABLET PO SCH (21:56)
--- NOTE | 2019-02-11 22:04 | PDOC PROGRESS REPORT ---
Subjective Progress Note for:: 02/11/19 Subjective:: Patient was in the OR today, she had the nail of the right big toe removed on the toe was debrided Reason For Visit: RIGHT GREAT TOE ABSCESS Physical Exam Vital Signs: Temp Pulse Resp BP Pulse Ox 97.9 F 79 16 147/51 H 93 02/11/19 18:55 02/11/19 18:55 02/11/19 18:55 02/11/19 18:55 02/11/19 18:55 Intake & Output 02/10/19 02/11/19 02/12/19 06:59 06:59 06:59 Intake Total 340 1080 Balance 340 1080 Weight 123 kg General appearance: PRESENT: no acute distress Eye exam: PRESENT: PERRLA Respiratory exam: PRESENT: clear to auscultation alvaro Cardiovascular exam: PRESENT: +S1, +S2 GI/Abdominal exam: PRESENT: soft Neurological exam: PRESENT: alert Results Laboratory Results: 02/10/19 15:27 02/10/19 15:27 Assessment & Plan - Diagnosis (1) Cellulitis of right foot Is this a current diagnosis for this admission?: Yes Plan: Continue IV antibiotic (2) Abscess of great toe of right foot Is this a current diagnosis for this admission?: Yes (3) Morbid (severe) obesity due to excess calories Is this a current diagnosis for this admission?: Yes (4) Type 2 diabetes mellitus Qualifiers: Diabetes mellitus alf insulin use: with alf use Diabetes mellitus complication status: with neurologic complications Diabetes mellitus complication detail: with polyneuropathy Qualified Code(s): E11.42 - Type 2 diabetes mellitus with diabetic polyneuropathy Is this a current diagnosis for this admission?: Yes
[2019-02-12] MEDS: CLINDAMYCIN 600 MG/D5W RTU 600 MG/50 ML RTUPB IV SCH ×3 (01:05→18:25)
[2019-02-12] MEDS: OXYCODONE-ACETAMINOPHEN 5-325 MG TABLET PO PRN ×3 (06:11→19:47)
[2019-02-12] MEDS: HYDROXYZINE HCL 10 MG TABLET PO SCH ×3 (06:12→21:21)
[2019-02-12] MEDS: BUSPIRONE HCL 10 MG TABLET PO SCH ×3 (06:12→21:22)
[2019-02-12] MEDS: GABAPENTIN 300 MG CAPSULE PO SCH ×3 (06:14→21:22)
[2019-02-12] MEDS: CLONAZEPAM 1 MG TABLET PO SCH ×3 (06:14→21:22)
[2019-02-12] MEDS: LEVOTHYROXINE SODIUM 0.025 MG TABLET PO SCH (06:14)
[2019-02-12] MEDS: CLONIDINE HCL 0.1 MG TABLET PO SCH ×2 (06:14→18:59)
--- NOTE | 2019-02-12 12:08 | PDOC PROGRESS REPORT ---
Subjective Progress Note for:: 02/12/19 Subjective:: Pains along the right big toenail removal site Reason For Visit: RIGHT GREAT TOE ABSCESS Physical Exam Vital Signs: Temp Pulse Resp BP Pulse Ox 97.7 F 92 15 132/71 H 94 02/12/19 00:44 02/12/19 00:44 02/12/19 00:44 02/12/19 00:44 02/12/19 00:44 Intake & Output 02/11/19 02/12/19 02/13/19 06:59 06:59 06:59 Intake Total 340 1390 Output Total 0 Balance 340 1390 Weight 123 kg 123.1 kg Exam: After dressings removed and the big toe appears to be decreasing and inflammation. The packing was left and will be removed tomorrow Results Laboratory Results: 02/10/19 15:27 02/10/19 15:27 02/10/19 15:30 Clean Catch Midstream Urine Culture - Final Proteus Mirabilis Assessment & Plan - Diagnosis (1) Abscess of great toe of right foot Is this a current diagnosis for this admission?: Yes (2) Paronychia of great toe of right foot Is this a current diagnosis for this admission?: Yes (3) Type 2 diabetes mellitus Qualifiers: Diabetes mellitus correction insulin use: with correction use Diabetes mellitus complication status: with neurologic complications Diabetes mellitus complication detail: with polyneuropathy Qualified Code(s): E11.42 - Type 2 diabetes mellitus with diabetic polyneuropathy Is this a current diagnosis for this admission?: Yes - Time Time Spent with patient: 15-24 minutes - Inpatient Certification Medical Necessity: Need for IV Antibiotics - Plan Summary Plan Summary: Postop day #1 post removal of right big toenail for paronychia Plans: 1 continue IV antibiotics 2 we will remove packing from the wound tomorrow for possible discharge on p.o. antibiotics for at least 10 days.
[2019-02-12] MEDS: QUETIAPINE FUMARATE 100 MG TABLET PO SCH ×2 (15:12→21:22)
[2019-02-12] MEDS: FOLIC ACID 1 MG TABLET PO SCH (15:12)
[2019-02-12] MEDS: SITAGLIPTIN PHOSPHATE 50 MG TABLET PO SCH (15:13)
[2019-02-12] MEDS: FAMOTIDINE 20 MG TABLET PO SCH ×2 (15:13→18:59)
[2019-02-12] MEDS: METOPROLOL SUCCINATE 50 MG TAB.SR.24H PO SCH (15:13)
[2019-02-12] MEDS: LISINOPRIL 10 MG TABLET PO SCH (15:13)
[2019-02-12] MEDS: METFORMIN HCL 500 MG TABLET PO SCH ×2 (15:13→18:59)
[2019-02-12] MEDS: MONTELUKAST SODIUM 10 MG TABLET PO SCH (18:59)
[2019-02-12] MEDS: OXYCODONE HCL IR 5 MG TABLET PO PRN (21:15)
[2019-02-12] MEDS: ZOLPIDEM TARTRATE 5 MG TABLET PO SCH (21:21)
--- NOTE | 2019-02-12 22:29 | PDOC PROGRESS REPORT ---
Subjective Progress Note for:: 02/12/19 Subjective:: Patient seen by the bedside, she complain of throbbing pain of the big toe at the site of the surgery Reason For Visit: RIGHT GREAT TOE ABSCESS Physical Exam Vital Signs: Temp Pulse Resp BP Pulse Ox 98 F 81 16 120/62 99 02/12/19 22:00 02/12/19 22:00 02/12/19 22:00 02/12/19 22:00 02/12/19 22:00 Intake & Output 02/11/19 02/12/19 02/13/19 06:59 06:59 06:59 Intake Total 340 1390 540 Output Total 0 Balance 340 1390 540 Weight 123 kg 123.1 kg General appearance: PRESENT: no acute distress Head exam: PRESENT: atraumatic, normocephalic Eye exam: PRESENT: PERRLA Mouth exam: PRESENT: moist, tongue midline Neck exam: PRESENT: full ROM Cardiovascular exam: PRESENT: RRR, +S1, +S2 Pulses: PRESENT: normal dorsalis pedis pul, +2 pedal pulses bilateral Vascular exam: PRESENT: normal capillary refill GI/Abdominal exam: PRESENT: normal bowel sounds, soft Rectal exam: PRESENT: deferred Neurological exam: PRESENT: alert Psychiatric exam: PRESENT: appropriate affect, normal mood Skin exam: PRESENT: dry, intact, warm Results Laboratory Results: 02/10/19 15:27 02/10/19 15:27 02/10/19 15:30 Clean Catch Midstream Urine Culture - Final Proteus Mirabilis Assessment & Plan - Diagnosis (1) Cellulitis of right foot Is this a current diagnosis for this admission?: Yes Plan: Continue IV antibiotic (2) Abscess of great toe of right foot Is this a current diagnosis for this admission?: Yes (3) Morbid (severe) obesity due to excess calories Is this a current diagnosis for this admission?: Yes (4) Type 2 diabetes mellitus Qualifiers: Diabetes mellitus salvage determiner insulin use: with jail use Diabetes mellitus complication status: with neurologic complications Diabetes mellitus complication detail: with polyneuropathy Qualified Code(s): E11.42 - Type 2 diabetes mellitus with diabetic polyneuropathy Is this a current diagnosis for this admission?: Yes
[2019-02-13] MEDS: CLINDAMYCIN 600 MG/D5W RTU 600 MG/50 ML RTUPB IV SCH ×3 (02:30→17:37)
[2019-02-13] MEDS: OXYCODONE-ACETAMINOPHEN 5-325 MG TABLET PO PRN ×4 (06:22→21:42)
[2019-02-13] MEDS: OXYCODONE HCL IR 5 MG TABLET PO PRN ×4 (06:22→21:41)
[2019-02-13] MEDS: BUSPIRONE HCL 10 MG TABLET PO SCH ×3 (06:31→21:42)
[2019-02-13] MEDS: HYDROXYZINE HCL 10 MG TABLET PO SCH ×3 (06:31→21:42)
[2019-02-13] MEDS: CLONAZEPAM 1 MG TABLET PO SCH ×3 (06:32→21:42)
[2019-02-13] MEDS: CLONIDINE HCL 0.1 MG TABLET PO SCH ×2 (06:32→17:44)
[2019-02-13] MEDS: LEVOTHYROXINE SODIUM 0.025 MG TABLET PO SCH (06:32)
[2019-02-13] MEDS: GABAPENTIN 300 MG CAPSULE PO SCH ×3 (06:32→21:42)
--- NOTE | 2019-02-13 07:08 | PDOC PROGRESS REPORT ---
Subjective Progress Note for:: 02/13/19 Subjective:: POD #2 Nail bed looks clean and dry with decrease in inflammation New dressings placed May go home anytime with po antibiotics for another 5 days May shower after 48 hrs then may leave wound open to air if no drainage by then Will sign off. Call for questions Reason For Visit: RIGHT GREAT TOE ABSCESS Physical Exam Vital Signs: Temp Pulse Resp BP Pulse Ox 98.4 F 82 16 113/51 L 96 02/12/19 23:18 02/12/19 23:18 02/12/19 23:18 02/12/19 23:18 02/12/19 23:18 Intake & Output 02/12/19 02/13/19 02/14/19 06:59 06:59 06:59 Intake Total 1390 640 Output Total 0 Balance 1390 640 Weight 123.1 kg Results Laboratory Results: 02/10/19 15:27 02/10/19 15:27 02/10/19 15:30 Clean Catch Midstream Urine Culture - Final Proteus Mirabilis Assessment & Plan - Diagnosis (1) Abscess of great toe of right foot Is this a current diagnosis for this admission?: Yes (2) Paronychia of great toe of right foot Is this a current diagnosis for this admission?: Yes (3) Type 2 diabetes mellitus Qualifiers: Diabetes mellitus care home insulin use: with care home use Diabetes mellitus complication status: with neurologic complications Diabetes mellitus complication detail: with polyneuropathy Qualified Code(s): E11.42 - Type 2 diabetes mellitus with diabetic polyneuropathy Is this a current diagnosis for this admission?: Yes
[2019-02-13] MEDS: QUETIAPINE FUMARATE 100 MG TABLET PO SCH ×2 (09:57→21:42)
[2019-02-13] MEDS: METFORMIN HCL 500 MG TABLET PO SCH ×2 (09:57→17:44)
[2019-02-13] MEDS: FOLIC ACID 1 MG TABLET PO SCH (09:57)
[2019-02-13] MEDS: SITAGLIPTIN PHOSPHATE 50 MG TABLET PO SCH (09:58)
[2019-02-13] MEDS: LISINOPRIL 10 MG TABLET PO SCH (09:58)
[2019-02-13] MEDS: FAMOTIDINE 20 MG TABLET PO SCH ×2 (09:58→17:44)
[2019-02-13] MEDS: METOPROLOL SUCCINATE 50 MG TAB.SR.24H PO SCH (09:58)
--- NOTE | 2019-02-13 17:20 | PDOC PROGRESS REPORT ---
Subjective Progress Note for:: 02/13/19 Subjective:: Patient seen by the bedside, she continues IV antibiotic, hopefully discharge home tomorrow Reason For Visit: RIGHT GREAT TOE ABSCESS Physical Exam Vital Signs: Temp Pulse Resp BP Pulse Ox 98.3 F 72 18 100/62 95 02/13/19 12:00 02/13/19 12:00 02/13/19 12:00 02/13/19 12:00 02/13/19 12:00 Intake & Output 02/12/19 02/13/19 02/14/19 06:59 06:59 06:59 Intake Total 1390 1190 50 Output Total 0 0 Balance 1390 1190 50 Weight 123.1 kg 123.1 kg General appearance: PRESENT: no acute distress Eye exam: PRESENT: PERRLA Respiratory exam: PRESENT: clear to auscultation alvaro Cardiovascular exam: PRESENT: +S1, +S2 GI/Abdominal exam: PRESENT: soft Neurological exam: PRESENT: alert Results Laboratory Results: 02/10/19 15:27 02/10/19 15:27 Assessment & Plan - Diagnosis (1) Cellulitis of right foot Is this a current diagnosis for this admission?: Yes Plan: Continue IV antibiotic (2) Abscess of great toe of right foot Is this a current diagnosis for this admission?: Yes (3) Morbid (severe) obesity due to excess calories Is this a current diagnosis for this admission?: Yes (4) Type 2 diabetes mellitus Qualifiers: Diabetes mellitus [facility] insulin use: with [facility]p use Diabetes mellitus complication status: with neurologic complications Diabetes mellitus complication detail: with polyneuropathy Qualified Code(s): E11.42 - Type 2 diabetes mellitus with diabetic polyneuropathy Is this a current diagnosis for this admission?: Yes
[2019-02-13] MEDS: MONTELUKAST SODIUM 10 MG TABLET PO SCH (17:44)
[2019-02-13] MEDS: ZOLPIDEM TARTRATE 5 MG TABLET PO SCH (21:42)
[2019-02-14] MEDS: CLINDAMYCIN HCL 150 MG CAPSULE PO SCH ×3 (05:51→21:19)
[2019-02-14] MEDS: BUSPIRONE HCL 10 MG TABLET PO SCH ×3 (05:51→21:21)
[2019-02-14] MEDS: GABAPENTIN 300 MG CAPSULE PO SCH ×3 (06:02→21:20)
[2019-02-14] MEDS: CLONIDINE HCL 0.1 MG TABLET PO SCH ×2 (06:03→18:06)
[2019-02-14] MEDS: LEVOTHYROXINE SODIUM 0.025 MG TABLET PO SCH (06:03)
[2019-02-14] MEDS: CLONAZEPAM 1 MG TABLET PO SCH ×3 (06:03→21:21)
[2019-02-14] MEDS: HYDROXYZINE HCL 10 MG TABLET PO SCH ×3 (06:14→21:20)
[2019-02-14] MEDS: FAMOTIDINE 20 MG TABLET PO SCH ×2 (09:49→18:12)
[2019-02-14] MEDS: FOLIC ACID 1 MG TABLET PO SCH (09:49)
[2019-02-14] MEDS: LISINOPRIL 10 MG TABLET PO SCH (09:49)
[2019-02-14] MEDS: QUETIAPINE FUMARATE 100 MG TABLET PO SCH ×2 (09:49→21:22)
[2019-02-14] MEDS ORDERED: NORMAL SALINE 500 ML IV ONE (10:00)
[2019-02-14] MEDS: METOPROLOL SUCCINATE 50 MG TAB.SR.24H PO SCH (11:37)
[2019-02-14] MEDS: SITAGLIPTIN PHOSPHATE 50 MG TABLET PO SCH (11:37)
[2019-02-14] MEDS: METFORMIN HCL 500 MG TABLET PO SCH ×2 (11:37→18:12)
[2019-02-14 15:46] LABS: ABSOLUTE BASOPHILS # (AUTO) 0.1 10^3/uL (0.0-0.2); ABSOLUTE EOSINOPHILS # (AUTO) 0.4 10^3/uL (0.0-0.6); ABSOLUTE LYMPHOCYTES (AUTO) 3.4 10^3/uL (0.5-4.7); ABSOLUTE MONOCYTES (AUTO) 0.5 10^3/uL (0.1-1.4); ABSOLUTE NEUT (AUTO) 5.2 10^3/uL (1.7-8.2); BASOPHILS % (AUTO) 0.8 % (0-2); EOSINOPHILS % (AUTO) 3.9 % (0-6); HEMATOCRIT 36.7 % (36.0-47.0); HEMOGLOBIN 11.6 g/dL (12.0-15.5); LYMPHOCYTES % (AUTO) 35.2 % (13-45); MEAN CORPUSCULAR HEMOGLOBIN 22.9 pg (27.0-33.4); MEAN CORPUSCULAR HGB CONC 31.6 g/dL (32.0-36.0); MEAN CORPUSCULAR VOLUME 73 fl (80-97); MONOCYTES % (AUTO) 5.6 % (3-13); PLATELET COUNT 239 10^3/uL (150-450); RED BLOOD COUNT 5.06 10^6/uL (3.72-5.28); RED CELL DISTRIBUTION WIDTH 17.9 % (11.5-14.0); SEGMENTED NEUTROPHILS % (AUTO) 54.5 % (42-78); TOTAL CELLS COUNTED % (AUTO) 100 %; WHITE BLOOD COUNT 9.5 10^3/uL (4.0-10.5)
[2019-02-14 16:02] LABS: ALKALINE PHOSPHATASE 113 U/L (38-126); ANION GAP 12 (5-19); ASPARTATE AMINO TRANSFERASE 37 U/L (14-36); BILIRUBIN,DIRECT 0.3 mg/dL (0.0-0.4); BILIRUBIN,TOTAL 0.4 mg/dL (0.2-1.3); BLOOD UREA NITROGEN 35 mg/dL (7-20); CARBON DIOXIDE 25 mmol/L (22-30); CHLORIDE 100 mmol/L (98-107); GLUCOSE 136 mg/dL (75-110); POTASSIUM 5.3 mmol/L (3.6-5.0); TOTAL PROTEIN 7.2 g/dL (6.3-8.2)
--- NOTE | 2019-02-14 17:27 | PDOC PROGRESS REPORT ---
Subjective Progress Note for:: 02/14/19 Subjective:: The initial plan was to discharge patient home today, she had severe low blood pressure, 70 systolic, she required boluses with normal saline, she respond to the infusion Reason For Visit: RIGHT GREAT TOE ABSCESS Physical Exam Vital Signs: Temp Pulse Resp BP Pulse Ox 97.7 F 77 18 114/59 L 100 02/14/19 12:18 02/14/19 12:18 02/14/19 12:18 02/14/19 12:18 02/14/19 12:18 Intake & Output 02/13/19 02/14/19 02/15/19 06:59 06:59 06:59 Intake Total 1190 1158 500 Output Total 0 300 Balance 1190 858 500 Weight 123.1 kg 124.2 kg General appearance: PRESENT: no acute distress Eye exam: PRESENT: PERRLA Respiratory exam: PRESENT: clear to auscultation alvaro Cardiovascular exam: PRESENT: +S1, +S2 GI/Abdominal exam: PRESENT: soft Neurological exam: PRESENT: alert Results Laboratory Results: 02/14/19 15:30 02/14/19 15:30 02/14/19 02/14/19 15:30 15:30 WBC 9.5 RBC 5.06 Hgb 11.6 L Hct 36.7 MCV 73 L MCH 22.9 L MCHC 31.6 L RDW 17.9 H Plt Count 239 Seg Neutrophils % 54.5 Sodium 136.7 L Potassium 5.3 H Chloride 100 Carbon Dioxide 25 Anion Gap 12 BUN 35 H Creatinine 2.56 H Est GFR ( Amer) 23 L Glucose 136 H Calcium 9.0 Total Bilirubin 0.4 AST 37 H Alkaline Phosphatase 113 Total Protein 7.2 Albumin 4.0 Assessment & Plan - Diagnosis (1) Cellulitis of right foot Is this a current diagnosis for this admission?: Yes (2) Abscess of great toe of right foot Is this a current diagnosis for this admission?: Yes (3) Morbid (severe) obesity due to excess calories Is this a current diagnosis for this admission?: Yes (4) Type 2 diabetes mellitus Qualifiers: Diabetes mellitus [facility] insulin use: with [facility] use Diabetes mellitus complication status: with neurologic complications Diabetes mellitus complication detail: with polyneuropathy Qualified Code(s): E11.42 - Type 2 diabetes mellitus with diabetic polyneuropathy Is this a current diagnosis for this admission?: Yes (5) Hypotension Qualifiers: Hypotension type: unspecified hypotension type Qualified Code(s): I95.9 - Hypotension, unspecified Is this a current diagnosis for this admission?: Yes Plan: Continue IV fluid
[2019-02-14] MEDS: MONTELUKAST SODIUM 10 MG TABLET PO SCH (18:11)
[2019-02-14] MEDS: ZOLPIDEM TARTRATE 5 MG TABLET PO SCH (21:22)
[2019-02-15 04:51] LABS: ABSOLUTE BASOPHILS # (AUTO) 0.1 10^3/uL (0.0-0.2); ABSOLUTE EOSINOPHILS # (AUTO) 0.3 10^3/uL (0.0-0.6); ABSOLUTE LYMPHOCYTES (AUTO) 2.9 10^3/uL (0.5-4.7); ABSOLUTE MONOCYTES (AUTO) 0.5 10^3/uL (0.1-1.4); ABSOLUTE NEUT (AUTO) 4.7 10^3/uL (1.7-8.2); BASOPHILS % (AUTO) 0.8 % (0-2); EOSINOPHILS % (AUTO) 3.2 % (0-6); HEMATOCRIT 33.9 % (36.0-47.0); HEMOGLOBIN 10.8 g/dL (12.0-15.5); LYMPHOCYTES % (AUTO) 34.5 % (13-45); MEAN CORPUSCULAR HGB CONC 31.8 g/dL (32.0-36.0); MEAN CORPUSCULAR VOLUME 72 fl (80-97); MONOCYTES % (AUTO) 6.2 % (3-13); PLATELET COUNT 188 10^3/uL (150-450); RED BLOOD COUNT 4.69 10^6/uL (3.72-5.28); RED CELL DISTRIBUTION WIDTH 17.6 % (11.5-14.0); SEGMENTED NEUTROPHILS % (AUTO) 55.3 % (42-78); TOTAL CELLS COUNTED % (AUTO) 100 %; WHITE BLOOD COUNT 8.5 10^3/uL (4.0-10.5)
[2019-02-15 05:13] LABS: ALBUMIN 3.6 g/dL (3.5-5.0); ALKALINE PHOSPHATASE 110 U/L (38-126); ANION GAP 7 (5-19); ASPARTATE AMINO TRANSFERASE 30 U/L (14-36); BILIRUBIN,DIRECT 0.2 mg/dL (0.0-0.4); BILIRUBIN,TOTAL 0.5 mg/dL (0.2-1.3); BLOOD UREA NITROGEN 32 mg/dL (7-20); CALCIUM 9.2 mg/dL (8.4-10.2); CARBON DIOXIDE 26 mmol/L (22-30); CHLORIDE 105 mmol/L (98-107); GLUCOSE 116 mg/dL (75-110); POTASSIUM 5.4 mmol/L (3.6-5.0); TOTAL PROTEIN 6.8 g/dL (6.3-8.2)
[2019-02-15] MEDS: CLONAZEPAM 1 MG TABLET PO SCH ×3 (05:30→22:28)
[2019-02-15] MEDS: CLINDAMYCIN HCL 150 MG CAPSULE PO SCH ×3 (05:30→22:27)
[2019-02-15] MEDS: BUSPIRONE HCL 10 MG TABLET PO SCH ×3 (05:31→22:28)
[2019-02-15] MEDS: HYDROXYZINE HCL 10 MG TABLET PO SCH (05:31)
[2019-02-15] MEDS: CLONIDINE HCL 0.1 MG TABLET PO SCH ×2 (05:31→17:58)
[2019-02-15] MEDS: GABAPENTIN 300 MG CAPSULE PO SCH ×3 (05:31→22:28)
[2019-02-15] MEDS: LEVOTHYROXINE SODIUM 0.025 MG TABLET PO SCH (05:31)
[2019-02-15] MEDS: LISINOPRIL 10 MG TABLET PO SCH (09:56)
[2019-02-15] MEDS: QUETIAPINE FUMARATE 100 MG TABLET PO SCH ×2 (10:21→22:27)
[2019-02-15] MEDS: FAMOTIDINE 20 MG TABLET PO SCH (10:21)
[2019-02-15] MEDS: METOPROLOL SUCCINATE 50 MG TAB.SR.24H PO SCH (10:22)
[2019-02-15] MEDS: METFORMIN HCL 500 MG TABLET PO SCH ×2 (10:22→17:58)
[2019-02-15] MEDS: FOLIC ACID 1 MG TABLET PO SCH (10:22)
[2019-02-15] MEDS: SITAGLIPTIN PHOSPHATE 50 MG TABLET PO SCH (10:22)
[2019-02-15] MEDS: HYDROXYZINE PAMOATE 25 MG CAPSULE PO SCH ×2 (13:47→22:29)
[2019-02-15] MEDS: OXYCODONE-ACETAMINOPHEN 5-325 MG TABLET PO PRN (15:18)
[2019-02-15] MEDS: MONTELUKAST SODIUM 10 MG TABLET PO SCH (17:58)
[2019-02-15] MEDS ORDERED: ACETAMINOPHEN 325 MG TABLET PO PRN (17:59)
--- NOTE | 2019-02-15 20:25 | PDOC PROGRESS REPORT ---
Subjective Progress Note for:: 02/15/19 Subjective:: Patient is very confused today not safe for discharge, this is probably drug effect, discontinue all opioid Reason For Visit: RIGHT GREAT TOE ABSCESS Physical Exam Vital Signs: Temp Pulse Resp BP Pulse Ox 97.8 F 83 17 137/68 H 91 L 02/15/19 17:07 02/15/19 17:07 02/15/19 17:07 02/15/19 17:07 02/15/19 17:07 Intake & Output 02/14/19 02/15/19 02/16/19 06:59 06:59 06:59 Intake Total 1158 736 976 Output Total 300 260 Balance 858 476 976 Weight 124.2 kg General appearance: PRESENT: no acute distress Eye exam: PRESENT: PERRLA Respiratory exam: PRESENT: clear to auscultation alvaro Cardiovascular exam: PRESENT: +S1, +S2 Neurological exam: PRESENT: alert Results Laboratory Results: 02/15/19 04:36 02/15/19 04:36 02/15/19 02/15/19 04:36 04:36 WBC 8.5 RBC 4.69 Hgb 10.8 L Hct 33.9 L MCV 72 L MCH 23.0 L MCHC 31.8 L RDW 17.6 H Plt Count 188 Seg Neutrophils % 55.3 Sodium 138.0 Potassium 5.4 H Chloride 105 Carbon Dioxide 26 Anion Gap 7 BUN 32 H Creatinine 1.90 H Est GFR ( Amer) 32 L Glucose 116 H Calcium 9.2 Total Bilirubin 0.5 AST 30 Alkaline Phosphatase 110 Total Protein 6.8 Albumin 3.6 02/10/19 18:42 Blood Blood Culture - Final NO GROWTH IN 5 DAYS 02/10/19 15:27 Blood Blood Culture - Final NO GROWTH IN 5 DAYS Assessment & Plan - Diagnosis (1) Cellulitis of right foot Is this a current diagnosis for this admission?: Yes (2) Abscess of great toe of right foot Is this a current diagnosis for this admission?: Yes (3) Morbid (severe) obesity due to excess calories Is this a current diagnosis for this admission?: Yes (4) Type 2 diabetes mellitus Qualifiers: Diabetes mellitus termite exterminator helper insulin use: with penitentiary use Diabetes mellitus complication status: with neurologic complications Diabetes mellitus complication detail: with polyneuropathy Qualified Code(s): E11.42 - Type 2 diabetes mellitus with diabetic polyneuropathy Is this a current diagnosis for this admission?: Yes (5) Hypotension Qualifiers: Hypotension type: unspecified hypotension type Qualified Code(s): I95.9 - Hypotension, unspecified Is this a current diagnosis for this admission?: Yes - Plan Summary Plan Summary: Discontinue opioid
[2019-02-15] MEDS: ZOLPIDEM TARTRATE 5 MG TABLET PO SCH (22:28)
[2019-02-16] MEDS ORDERED: LORAZEPAM INJ 2 MG/1 ML VIAL ONE (01:54)
[2019-02-16] MEDS ORDERED: LORAZEPAM INJ 2 MG/1 ML VIAL IV ONE (02:00)
[2019-02-16] MEDS: BUSPIRONE HCL 10 MG TABLET PO SCH ×2 (05:14→15:25)
[2019-02-16] MEDS: CLONAZEPAM 1 MG TABLET PO SCH ×2 (05:14→15:25)
[2019-02-16] MEDS: CLINDAMYCIN HCL 150 MG CAPSULE PO SCH ×2 (05:16→15:26)
[2019-02-16] MEDS: HYDROXYZINE PAMOATE 25 MG CAPSULE PO SCH ×2 (05:16→15:27)
[2019-02-16] MEDS: LEVOTHYROXINE SODIUM 0.025 MG TABLET PO SCH (05:16)
[2019-02-16] MEDS: GABAPENTIN 300 MG CAPSULE PO SCH ×2 (05:16→15:26)
[2019-02-16] MEDS: CLONIDINE HCL 0.1 MG TABLET PO SCH ×2 (05:16→17:10)
[2019-02-16] MEDS: QUETIAPINE FUMARATE 100 MG TABLET PO SCH (07:57)
[2019-02-16] MEDS ORDERED: CLONIDINE HCL 0.1 MG TABLET PO ONE (08:00)
[2019-02-16] MEDS ORDERED: CLINDAMYCIN HCL 150 MG CAPSULE PO ONE (08:00)
[2019-02-16] MEDS: FAMOTIDINE 20 MG TABLET PO SCH (09:27)
[2019-02-16] MEDS: FOLIC ACID 1 MG TABLET PO SCH (09:27)
[2019-02-16] MEDS: METFORMIN HCL 500 MG TABLET PO SCH ×2 (09:28→17:10)
[2019-02-16] MEDS: SITAGLIPTIN PHOSPHATE 50 MG TABLET PO SCH (09:30)
[2019-02-16] MEDS: METOPROLOL SUCCINATE 50 MG TAB.SR.24H PO SCH (09:31)
[2019-02-16] MEDS: LISINOPRIL 10 MG TABLET PO SCH (09:35)
[2019-02-16] MEDS: MONTELUKAST SODIUM 10 MG TABLET PO SCH (17:10)
[2019-02-16 19:38] VITALS: BP 101/48
--- NOTE | 2019-02-16 20:54 | PDOC DISCHARGE SUMMARY ---
General - Admit/Disc Date/PCP Admission Date/Primary Care Provider: 02/12/19 16:10 LISA DIETZ MD Discharge Date: 02/16/19 - Discharge Diagnosis (1) Cellulitis of right foot Is this a current diagnosis for this admission?: Yes (2) Abscess of great toe of right foot Is this a current diagnosis for this admission?: Yes (3) Morbid (severe) obesity due to excess calories Is this a current diagnosis for this admission?: Yes (4) Type 2 diabetes mellitus Is this a current diagnosis for this admission?: Yes (5) Hypotension Is this a current diagnosis for this admission?: Yes (6) Acute kidney injury Is this a current diagnosis for this admission?: Yes - Additional Information Discharge Diet: Diabetic Discharge Activity: Activity As Tolerated Home Medications: RX: Buspirone HCl [Buspar 5 mg Tablet] 5 mg PO Q8 02/10/19 RX: Clonazepam [Klonopin 1 mg Tablet] 1 mg PO Q8 02/10/19 RX: Clonidine HCl [Catapres 0.1 mg Tablet] 0.1 mg PO Q12 02/10/19 RX: Eszopiclone [Lunesta] 3 mg PO QHS 02/10/19 RX: Folic Acid [Folvite 1 mg Tablet] 1 mg PO DAILY 02/10/19 RX: Gabapentin [Neurontin 300 mg Capsule] 300 mg PO Q8 02/10/19 RX: Levothyroxine Sodium 25 mcg PO Q6AM 02/10/19 RX: Lisinopril 20 mg PO DAILY 02/10/19 RX: Metformin HCl [Glucophage] 1,000 mg PO BID 02/10/19 RX: Metoprolol Succinate [Toprol XL 100 mg Tablet] 100 mg PO DAILY 02/10/19 RX: Montelukast Sodium [Singulair 10 mg Tablet] 10 mg PO DAILY 02/10/19 RX: Quetiapine Fumarate [Seroquel 100 mg Tablet] 100 mg PO QAM 02/10/19 RX: Quetiapine Fumarate [Seroquel] 400 mg PO QHS 02/10/19 RX: Ranitidine HCl [Zantac] 150 mg PO BID 02/10/19 RX: Sitagliptin Phosphate [Januvia] 100 mg PO DAILY 02/10/19 RX: Tiotropium Br/Olodaterol HCl [Stiolto Respimat Inhal [place]] 2 puff IH DAILY 02/10/19 RX: Oxycodone HCl/Acetaminophen [Percocet 10-325 mg Tablet] 1 tab PO Q8H PRN 02/13/19 RX: Hydroxyzine Pamoate [Vistaril 25 mg Capsule] 25 mg PO Q8 02/14/19 History of Present Illness History of Present Illness: MELISSA OH I is a 63 year old female, She has type 2 diabetes mellitus, legally blind, body mass index 45. She came to the office for evaluation of swelling of the right foot with infected right big toe, on palpation of the toe it was fluctuant. I was concerned especially because she is a diabetic and she has infected foot, I felt the best approach is to admit to the hospital to initiate IV antibiotic and also consult surgery for incision and drainage of the right big toe which I believe is the the source of the infection Hospital Course Hospital Course: Patient was admitted for the management of right foot cellulitis, abscess of the right big toe she underwent incision and drainage of the big toe by the surgeon. There was associated acute kidney injury. She had episode of acute confusion in the hospital, this was felt to be due to medication. Patient insisted on being discharged home tonight, I felt that she needed to do more blood work but she refused to stay she be discharged home tonight she will follow outpatient for the necessary test needed.she was treated with intravenous antibiotic clindamycin, there was evidence of Proteus colonization of urinary tract the colony count was not indicative of UTI. Physical Exam Vital Signs: Temp Pulse Resp BP Pulse Ox 97.4 F 84 17 101/48 L 95 02/16/19 19:33 02/16/19 19:33 02/16/19 19:33 02/16/19 19:33 02/16/19 19:33 Intake & Output 02/15/19 02/16/19 02/17/19 06:59 06:59 06:59 Intake Total 736 976 266 Output Total 260 Balance 476 976 266 Weight 111.2 kg General appearance: PRESENT: no acute distress, well-developed, well-nourished Head exam: PRESENT: atraumatic, normocephalic Eye exam: PRESENT: EOMI, PERRLA Ear exam: PRESENT: normal external ear exam Mouth exam: PRESENT: moist, tongue midline Neck exam: PRESENT: full ROM Respiratory exam: PRESENT: clear to auscultation alvaro Cardiovascular exam: PRESENT: RRR, +S1, +S2 Vascular exam: PRESENT: normal capillary refill GI/Abdominal exam: PRESENT: normal bowel sounds, soft Rectal exam: PRESENT: deferred Neurological exam: PRESENT: alert, awake, oriented to person, oriented to place, oriented to time, oriented to situation, CN II-XII grossly intact Psychiatric exam: PRESENT: appropriate affect, normal mood Skin exam: PRESENT: dry, intact, warm Results Laboratory Results: 02/15/19 04:36 02/15/19 04:36 02/10/19 18:42 Blood Blood Culture - Final NO GROWTH IN 5 DAYS Qualifiers - * PATIENT BEING DISCHARGED WITH ANY OF THE FOLLOWING DIAGNOSIS: No VTE patient discharged on overlapping Therapy?: No Reason(s) for not prescribing Overlap Therapy:: Not indicated Stroke Pt being discharged on Anti-thrombolytic therapy?: No Reason(s) for not prescribing Anti-thrombolytic therapy:: Not indicated Stroke Pt being discharged on Anti-coagulation therapy?: No Reason(s) for not prescribing Anti-coagulation therapy:: Not indicated Stroke Pt being discharged on Statins?: No Reason(s) for not prescribing Statins therapy:: Not indicated NV Pt being discharged on Aspirin therapy?: No Reason(s) for not prescribing Aspirin therapy:: Not indicated NV Pt being discharged on Statins?: No Reason(s) for not prescribing Statin therapy:: Not indicated NV Pt discharged ACEI/ARBS?: No Reason(s) for not prescribing ACEI/ARBS:: Not indicated Acute Heart Failure - Is this a Heart Failure Patient?: No Follow-up Appointment scheduled within 7 days?: Yes
== END 2019-02-16 20:24 | disposition home or self-care (01) | DRG 603 ==
LOC: INTOOBSV 13:43 → 4N 13:43 → OBSVTOIN 02-12 16:10
PROVIDERS: ADMIT Internal Medicine; ATTEND Internal Medicine
PROC: 0HTRXZZ Resection of Toe Nail, External Approach (ICD-10-PCS; principal; 2019-02-11 14:15)
DX: L03.115 Cellulitis of right lower limb (principal); N17.9 Acute kidney failure, unspecified; Z68.42 Body mass index [BMI] 45.0-49.9, adult; I95.9 Hypotension, unspecified; L03.031 Cellulitis of right toe; E11.42 Type 2 diabetes mellitus with diabetic polyneuropathy; E66.01 Morbid (severe) obesity due to excess calories; Z79.84 Long term (current) use of oral hypoglycemic drugs; Z79.891 Long term (current) use of opiate analgesic; Z79.899 Other long term (current) drug therapy
CPT/HCPCS: 1480; 36415; 80048; 80053; 81001; 82962; 83036; 85025; 85027; 87040; 87086; 87088; 87186; G0378; G0379; J2060; J2250; J2704; J3010; J3490; J7040

== ENCOUNTER 2019-02-17 17:19 | Observation (INO) | payer MEDICARE, MEDICAID ==
[2019-02-17] MEDS ORDERED: NORMAL SALINE 500 ML IV ONE (17:42)
--- NOTE | 2019-02-17 17:58 | ER Document Report ---
ED General - General Chief Complaint: fatigue Stated Complaint: LETHARGIC Time Seen by Provider: 02/17/19 17:32 TRAVEL OUTSIDE OF THE [place] IN LAST 30 DAYS: No - HPI Notes: Patient lives by herself in her home presents via EMS due to not able to be able to get out of bed on her own free will. She states that she had generalized weakness and when she woke up this morning but no unilateral weakness. She is been having a mild cough but denies any chest pain or shortness of breath abdominal pain or dysuria. She was seen by Dr. Pittman yesterday stated that she had a toenail removed in her right lower extremity first digit. Any nausea or vomiting she has been having intermittent diarrhea but she states this is been going on for over 6 months. - Related Data Allergies/Adverse Reactions: kiwi [Kiwi (Actinidia Chinensis)] Allergy (Severe, Verified 11/03/17 05:42) tongue swelling and bumps on tongue propoxyphene napsylate [From Darvocet-N 100] Allergy (Severe, Verified 11/03/17 05:42) VOMITING, SWELLING tetracycline [Tetracycline] Allergy (Severe, Verified 11/03/17 05:42) BUMPS ON BODY trimethoprim [From Bactrim] Allergy (Severe, Verified 11/03/17 05:42) PT STATES HER "BODY QUINONEZ UP." sulfamethoxazole [From Bactrim] Allergy (Intermediate, Verified 11/03/17 05:42) PT STATES HER "BODY QUINONEZ UP. strawberry [[place]] Allergy (Mild, Verified 11/03/17 05:42) bumps and sores on tongue ciprofloxacin [From Cipro] Allergy (Verified 11/03/17 05:42) Psychosis nuts Allergy (Mild, Uncoded 06/03/17 09:02) walnuts. causes tongue swelling pineapples Allergy (Mild, Uncoded 06/03/17 09:02) tongue swelling and bumps on tongue Past Medical History - Social History Smoking Status: Unknown if Ever Smoked Family History: Reviewed & Not Pertinent - Past Medical History Cardiac Medical History: Reports: Hx Hypertension Denies: Hx Heart Attack Pulmonary Medical History: Reports: Hx Asthma, Hx COPD, Hx Pneumonia Denies: Hx Bronchitis Neurological Medical History: Denies: Hx Cerebrovascular Accident, Hx Seizures Endocrine Medical History: Reports: Hx Diabetes Mellitus Type 2 Renal/ Medical History: Denies: Hx Peritoneal Dialysis GI Medical History: Reports: Hx Gastroesophageal Reflux Disease Musculoskeletal Medical History: Reports Hx Arthritis - DDD, BACK AND KNEES Psychiatric Medical History: Reports: Hx Bipolar Disorder, Hx Depression, Hx Schizophrenia - "borderline" Past Surgical History: Reports: Hx Section, Hx Cholecystectomy, Hx Herniorrhaphy - Immunizations Hx Diphtheria, Pertussis, Tetanus Vaccination: Yes - HAD PNEUMONIA VACCINE-NOT SURE OF YEAR Hx Pneumococcal Vaccination: 06/02/09 Review of Systems - Review of Systems Constitutional: See HPI EENT: No symptoms reported Cardiovascular: No symptoms reported Respiratory: No symptoms reported Gastrointestinal: See HPI Genitourinary: No symptoms reported Female Genitourinary: No symptoms reported Musculoskeletal: No symptoms reported Skin: No symptoms reported Hematologic/Lymphatic: No symptoms reported Neurological/Psychological: No symptoms reported Physical Exam - Vital signs Vitals: Resp Pulse Ox 19 95 02/17/19 17:32 02/17/19 17:32 - General General appearance: Appears well, Alert - HEENT Head: Normocephalic, Atraumatic Eyes: Normal Conjunctiva: Normal Cornea: Normal Extraocular movements intact: Yes Pupils: PERRL Mucous membranes: Dry - Respiratory Respiratory status: No respiratory distress Chest status: Nontender Breath sounds: Normal Chest palpation: Normal - Cardiovascular Rhythm: Regular Heart sounds: Normal auscultation Murmur: No - Abdominal Inspection: Morbidly Obese Distension: Distended Bowel sounds: Normal Tenderness: Nontender - Back Back: Normal, Nontender - Extremities General upper extremity: Normal inspection, Normal ROM General lower extremity: Other - Toenail removed first digit right lower extremity with mild swelling and no warmth around the nailbed. - Neurological Neuro grossly intact: Yes Cognition: Normal Orientation: AAOx4 Course - Re-evaluation Re-evalutation: 02/17/19 17:57 Patient is alert oriented to time person place can hold conversation no signs of altered mental status. She is able to move all extremities spontaneously no focal deficits. She states that she has felt weak and could not get out of bed for generalized weakness that occurred this morning and absence of any recent dysuria fevers or illnesses. Will provide fluids and work-up in progress at this time. 02/17/19 21:08 admit for weakness, UTI - Vital Signs Vital signs: Temp Pulse Resp BP Pulse Ox 97.3 F 80 16 151/54 H 96 02/20/19 00:36 02/20/19 00:36 02/20/19 00:36 02/20/19 00:36 02/20/19 00:36 - Laboratory Result Diagrams: 02/17/19 23:05 02/17/19 23:05 Laboratory results interpreted by me: 02/17/19 02/17/19 02/17/19 18:40 18:40 19:50 MCV 72 L MCH 23.1 L RDW 18.3 H Creatinine 1.70 H Est GFR ( Amer) 36 L Est GFR (MDRD) Non-Af 30 L Glucose 115 H Magnesium 1.3 L Urine Protein 30 H Urine Blood SMALL H Urine Nitrite POSITIVE H Ur Leukocyte Esterase LARGE H Discharge - Discharge Clinical Impression: Weakness UTI (urinary tract infection) Qualifiers: Urinary tract infection type: site unspecified Hematuria presence: without hematuria Qualified Code(s): N39.0 - Urinary tract infection, site not specified Condition: Good Disposition: ADMITTED INPATIENT Admitting Provider: Toya Unit Admitted: Medical Floor
--- NOTE | 2019-02-17 18:02 | RADIOLOGY REPORT (SQ) ---
EXAM DESCRIPTION: CHEST SINGLE VIEW COMPLETED DATE/TIME: 02/17/2019 5:54 pm REASON FOR STUDY: cough COMPARISON: None. EXAM PARAMETERS: NUMBER OF VIEWS: One view. TECHNIQUE: Single frontal radiographic view of the chest acquired. RADIATION DOSE: NA LIMITATIONS: None. FINDINGS: LUNGS AND PLEURA: No opacities, masses or pneumothorax. No pleural effusion. MEDIASTINUM AND HILAR STRUCTURES: No masses. Contour normal. HEART AND VASCULAR STRUCTURES: Heart normal in size. Normal vasculature. BONES: No acute findings. HARDWARE: None in the chest. OTHER: No other significant finding. IMPRESSION: NO ACUTE RADIOGRAPHIC FINDING IN THE CHEST. TECHNICAL DOCUMENTATION: JOB ID: [id number] [employer]- All Rights Reserved Reading location - IP/workstation name: [email or web address]
--- NOTE | 2019-02-17 18:29 | EKG REPORT ---
SEVERITY:- NORMAL ECG - SINUS RHYTHM : Confirmed by: Flavio Perez MD 17-Feb-2019 18:28:04
[2019-02-17 19:09] LABS: ABSOLUTE BASOPHILS # (AUTO) 0.1 10^3/uL (0.0-0.2); ABSOLUTE EOSINOPHILS # (AUTO) 0.3 10^3/uL (0.0-0.6); ABSOLUTE LYMPHOCYTES (AUTO) 2.8 10^3/uL (0.5-4.7); ABSOLUTE MONOCYTES (AUTO) 0.4 10^3/uL (0.1-1.4); ABSOLUTE NEUT (AUTO) 4.2 10^3/uL (1.7-8.2); BASOPHILS % (AUTO) 0.7 % (0-2); EOSINOPHILS % (AUTO) 3.9 % (0-6); HEMATOCRIT 37.7 % (36.0-47.0); HEMOGLOBIN 12.1 g/dL (12.0-15.5); LYMPHOCYTES % (AUTO) 35.9 % (13-45); MEAN CORPUSCULAR HEMOGLOBIN 23.1 pg (27.0-33.4); MEAN CORPUSCULAR VOLUME 72 fl (80-97); MONOCYTES % (AUTO) 5.5 % (3-13); PLATELET COUNT 217 10^3/uL (150-450); RED BLOOD COUNT 5.22 10^6/uL (3.72-5.28); RED CELL DISTRIBUTION WIDTH 18.3 % (11.5-14.0); TOTAL CELLS COUNTED % (AUTO) 100 %; WHITE BLOOD COUNT 7.8 10^3/uL (4.0-10.5)
[2019-02-17 19:23] LABS: ALBUMIN 4.4 g/dL (3.5-5.0); ALKALINE PHOSPHATASE 124 U/L (38-126); ANION GAP 12 (5-19); ASPARTATE AMINO TRANSFERASE 30 U/L (14-36); BILIRUBIN,DIRECT 0.2 mg/dL (0.0-0.4); BILIRUBIN,TOTAL 0.6 mg/dL (0.2-1.3); BLOOD UREA NITROGEN 20 mg/dL (7-20); CALCIUM 10.2 mg/dL (8.4-10.2); CARBON DIOXIDE 29 mmol/L (22-30); CHLORIDE 103 mmol/L (98-107); GLUCOSE 115 mg/dL (75-110); POTASSIUM 4.9 mmol/L (3.6-5.0); TOTAL PROTEIN 8.1 g/dL (6.3-8.2)
[2019-02-17 20:58] LABS: APPEARANCE,URINE SLIGHTLY-CLOUDY; BILIRUBIN,URINE NEGATIVE (NEGATIVE); COLOR,URINE YELLOW; GLUCOSE, URINE NEGATIVE (NEGATIVE); KETONES,URINE NEGATIVE (NEGATIVE); LEUKOCYTE ESTERASE,URINE LARGE (NEGATIVE); NITRITE,URINE POSITIVE (NEGATIVE); PROTEIN,URINE 30 mg/dL (NEGATIVE); URINE SPECIFIC GRAVITY 1.015; UROBILINOGEN,URINE NEGATIVE mg/dL (<2.0)
[2019-02-17] MEDS ORDERED: CEFTRIAXONE 1 GM/D5W RTU 1 GM/50 ML RTUPB IV ONE (21:08)
[2019-02-17] MEDS ORDERED: DEXTROSE 40% GEL 15 GM TUBE PO PRN ×2 (22:25)
[2019-02-17] MEDS ORDERED: GLUCAGON,HUMAN RECOMB 1 MG INJ IM PRN (22:25)
[2019-02-17] MEDS ORDERED: DEXTROSE 50%-WATER 25 GM/50 ML DISP.SYRIN IV PRN ×2 (22:25)
[2019-02-17] MEDS ORDERED: INSULIN LISPRO 100 UNIT/ML 3 ML VIAL SUBCUT ONE (23:00)
[2019-02-17 23:22] LABS: ABSOLUTE BASOPHILS # (AUTO) 0.1 10^3/uL (0.0-0.2); ABSOLUTE EOSINOPHILS # (AUTO) 0.3 10^3/uL (0.0-0.6); ABSOLUTE LYMPHOCYTES (AUTO) 3.2 10^3/uL (0.5-4.7); ABSOLUTE MONOCYTES (AUTO) 0.4 10^3/uL (0.1-1.4); ABSOLUTE NEUT (AUTO) 3.5 10^3/uL (1.7-8.2); BASOPHILS % (AUTO) 0.7 % (0-2); EOSINOPHILS % (AUTO) 3.8 % (0-6); HEMATOCRIT 37.9 % (36.0-47.0); HEMOGLOBIN 12.1 g/dL (12.0-15.5); LYMPHOCYTES % (AUTO) 43.2 % (13-45); MEAN CORPUSCULAR HEMOGLOBIN 23.1 pg (27.0-33.4); MEAN CORPUSCULAR VOLUME 72 fl (80-97); MONOCYTES % (AUTO) 4.8 % (3-13); PLATELET COUNT 193 10^3/uL (150-450); RED BLOOD COUNT 5.26 10^6/uL (3.72-5.28); RED CELL DISTRIBUTION WIDTH 18.4 % (11.5-14.0); SEGMENTED NEUTROPHILS % (AUTO) 47.5 % (42-78); TOTAL CELLS COUNTED % (AUTO) 100 %; WHITE BLOOD COUNT 7.4 10^3/uL (4.0-10.5)
[2019-02-17 23:34] LABS: ANION GAP 11 (5-19); BLOOD UREA NITROGEN 21 mg/dL (7-20); CALCIUM 9.6 mg/dL (8.4-10.2); CARBON DIOXIDE 27 mmol/L (22-30); CHLORIDE 104 mmol/L (98-107); GLUCOSE 110 mg/dL (75-110); POTASSIUM 4.8 mmol/L (3.6-5.0)
[2019-02-18] MEDS: NORMAL SALINE 1000 ML 1,000 ML IV PRN ×2 (05:12→19:50)
[2019-02-18] MEDS: HEPARIN SOD (PORCINE) 5,000 UNIT/ML 1 ML VIAL SUBCUT SCH ×3 (05:12→21:27)
[2019-02-18 05:48] LABS: CHOLESTEROL 116.19 mg/dL (0-200); TRIGLYCERIDES 189 mg/dL (<150)
[2019-02-18 05:59] LABS: DIRECT LDL 70 mg/dL (<100)
[2019-02-18 06:01] LABS: VLDL CHOLESTEROL 37.8 mg/dL (10-31)
[2019-02-18] MEDS: INSULIN LISPRO 100 UNIT/ML 3 ML VIAL SUBCUT SCH ×5 (08:44→21:48)
[2019-02-18] MEDS: METOPROLOL SUCCINATE 50 MG TAB.SR.24H PO SCH (13:53)
[2019-02-18] MEDS: LISINOPRIL 10 MG TABLET PO SCH (13:53)
[2019-02-18] MEDS ORDERED: (PENDING PHARMACY ID) (Ranitidine Hcl [Zantac] 150 MG) PO SCH (18:15)
[2019-02-18] MEDS ORDERED: (PENDING PHARMACY ID) (Lisinopril [Prinivil] 20 MG) PO SCH (18:15)
[2019-02-18] MEDS ORDERED: (PENDING PHARMACY ID) (Tiotropium Br/Olodaterol Hcl [Stiolto Respimat Inhal Spray] 2 PUFF) IH SCH (18:15)
[2019-02-18 18:55] LABS: APPEARANCE,URINE CLEAR; BILIRUBIN,URINE NEGATIVE (NEGATIVE); COLOR,URINE YELLOW; GLUCOSE, URINE NEGATIVE (NEGATIVE); KETONES,URINE NEGATIVE (NEGATIVE); LEUKOCYTE ESTERASE,URINE MODERATE (NEGATIVE); NITRITE,URINE NEGATIVE (NEGATIVE); PROTEIN,URINE NEGATIVE (NEGATIVE); URINE SPECIFIC GRAVITY 1.009; UROBILINOGEN,URINE NEGATIVE mg/dL (<2.0)
[2019-02-18] MEDS: GABAPENTIN 300 MG CAPSULE PO SCH (21:38)
[2019-02-18] MEDS: CEFTRIAXONE 1 GM/D5W RTU 1 GM/50 ML RTUPB IV SCH (21:38)
[2019-02-18] MEDS: CLONAZEPAM 1 MG TABLET PO SCH (21:38)
[2019-02-18] MEDS: HYDROXYZINE PAMOATE 25 MG CAPSULE PO SCH (21:38)
[2019-02-18] MEDS: CLONIDINE HCL 0.1 MG TABLET PO SCH (21:39)
[2019-02-18] MEDS: SITAGLIPTIN PHOSPHATE 50 MG TABLET PO SCH (21:39)
[2019-02-18] MEDS: MONTELUKAST SODIUM 10 MG TABLET PO SCH (21:39)
[2019-02-18] MEDS: QUETIAPINE FUMARATE 100 MG TABLET PO SCH (21:39)
[2019-02-18] MEDS: FAMOTIDINE 20 MG TABLET PO SCH (21:39)
[2019-02-18] MEDS ORDERED: (PENDING PHARMACY ID) (Quetiapine Fumarate [Seroquel] 400 MG) PO SCH (22:00)
--- NOTE | 2019-02-18 22:44 | PDOC H&P ---
History of Present Illness Admission Date/PCP: 02/17/19 21:17 LISA DIETZ MD History of Present Illness: MELISSA OH is a 63 year old female, She was just discharged from this [facility] on 02/16/2019when she was admitted for the management of cellulitis of the right foot , at the time she also had incision and drainage of the right big toe. On that admission she had conization of the urinary tract, she was treated empirically for the cellulitis with clindamycin. She was transferred from her residence by family friend because she was confused, she was hallucinating and generalized body weakness. She was evaluated in the emergency room, it was felt that she needed to be admitted to the hospital for management of UTI. The ED physician said the urine was grossly abnormal Past Medical History Cardiac Medical History: Reports: Hypertension Pulmonary Medical History: Reports: Asthma, Chronic Obstructive Pulmonary Disease (COPD), Pneumonia Endocrine Medical History: Reports: Diabetes Mellitus Type 2 GI Medical History: Reports: Gastroesophageal Reflux Disease Musculoskeltal Medical History: Reports: Arthritis - DDD, BACK AND KNEES Psychiatric Medical History: Reports: Bipolar Disorder, Depression Hematology: Reports: Anemia Past Surgical History Past Surgical History: Reports: Section, Cholecystectomy, Herniorrhaphy Social History Smoking Status: Never Smoker Frequency of Alcohol Use: None Hx Recreational Drug Use: Yes Drugs: Marijuana Hx Prescription Drug Abuse: No - Advance Directive Resuscitation Status: Full Code Family History Family History: Reviewed & Not Pertinent Parental Family History Reviewed: Yes Children Family History Reviewed: Yes Sibling(s) Family History Reviewed.: Yes Medication/Allergy Home Medications: Clonazepam [Klonopin 1 mg Tablet] 1 mg PO Q8 02/18/19 Clonidine HCl [Catapres 0.1 mg Tablet] 0.1 mg PO Q12 02/18/19 Folic Acid [Folvite 1 mg Tablet] 1 mg PO DAILY 02/18/19 Gabapentin [Neurontin 300 mg Capsule] 300 mg PO Q8 02/18/19 Hydroxyzine Pamoate [Vistaril 25 mg Capsule] 25 mg PO Q8 02/18/19 Levothyroxine Sodium 25 mcg PO Q6AM 02/18/19 Lisinopril [Prinivil] 20 mg PO DAILY 02/18/19 Metformin HCl [Glucophage] 1,000 mg PO BID 02/18/19 Metoprolol Succinate [Toprol XL 100 mg Tablet] 100 mg PO DAILY 02/18/19 Montelukast Sodium [Singulair 10 mg Tablet] 10 mg PO QHS 02/18/19 Quetiapine Fumarate [Seroquel 100 mg Tablet] 100 mg PO QAM 02/18/19 Quetiapine Fumarate [Seroquel] 400 mg PO QHS 02/18/19 Ranitidine HCl [Zantac] 150 mg PO BID 02/18/19 Sitagliptin Phosphate [Januvia] 100 mg PO DAILY 02/18/19 Tiotropium Br/Olodaterol HCl [Stiolto Respimat Inhal [place]] 2 puff IH DAILY 02/18/19 Allergies/Adverse Reactions: kiwi [Kiwi (Actinidia Chinensis)] Allergy (Severe, Verified 11/03/17 05:42) tongue swelling and bumps on tongue propoxyphene napsylate [From Darvocet-N 100] Allergy (Severe, Verified 11/03/17 05:42) VOMITING, SWELLING tetracycline [Tetracycline] Allergy (Severe, Verified 11/03/17 05:42) BUMPS ON BODY trimethoprim [From Bactrim] Allergy (Severe, Verified 11/03/17 05:42) PT STATES HER "BODY QUINONEZ UP." sulfamethoxazole [From Bactrim] Allergy (Intermediate, Verified 11/03/17 05:42) PT STATES HER "BODY QUINONEZ UP. strawberry [[place]] Allergy (Mild, Verified 11/03/17 05:42) bumps and sores on tongue ciprofloxacin [From Cipro] Allergy (Verified 11/03/17 05:42) Psychosis nuts Allergy (Mild, Uncoded 06/03/17 09:02) walnuts. causes tongue swelling pineapples Allergy (Mild, Uncoded 06/03/17 09:02) tongue swelling and bumps on tongue Review of Systems Constitutional: ABSENT: chills, fever(s), headache(s), weight gain, weight loss Eyes: ABSENT: visual disturbances Ears: ABSENT: hearing changes Cardiovascular: ABSENT: chest pain, dyspnea on exertion, edema, orthropnea, palpitations Respiratory: ABSENT: cough, hemoptysis Gastrointestinal: ABSENT: abdominal pain, constipation, diarrhea, hematemesis, hematochezia, nausea, vomiting Genitourinary: PRESENT: dysuria Integumentary: ABSENT: rash, wounds Neurological: ABSENT: abnormal gait, abnormal speech, confusion, dizziness, focal weakness, syncope Psychiatric: ABSENT: anxiety, depression, homidical ideation, suicidal ideation Endocrine: ABSENT: cold intolerance, heat intolerance, menstrual abnormalities, polydipsia, polyuria Hematologic/Lymphatic: ABSENT: easy bleeding, easy bruising, lymphadenopathy Physical Exam Vital Signs: Temp Pulse Resp BP Pulse Ox 99.8 F 88 17 165/110 H 97 02/18/19 12:06 02/18/19 19:00 02/18/19 12:06 02/18/19 12:06 02/18/19 12:06 Intake & Output 02/17/19 02/18/19 02/19/19 06:59 06:59 06:59 Intake Total 890 1692 Balance 890 1692 Weight 115.4 kg General appearance: PRESENT: no acute distress Head exam: PRESENT: atraumatic, normocephalic Eye exam: PRESENT: PERRLA Respiratory exam: PRESENT: clear to auscultation alvaro Cardiovascular exam: PRESENT: RRR, +S1, +S2 Vascular exam: PRESENT: normal capillary refill GI/Abdominal exam: PRESENT: normal bowel sounds, soft Rectal exam: PRESENT: deferred Neurological exam: PRESENT: alert, CN II-XII grossly intact Psychiatric exam: PRESENT: appropriate affect, normal mood Skin exam: PRESENT: dry, intact, warm Results Laboratory Results: 02/17/19 23:05 02/17/19 23:05 02/17/19 02/17/19 02/18/19 23:05 23:05 04:14 WBC 7.4 RBC 5.26 Hgb 12.1 Hct 37.9 MCV 72 L MCH 23.1 L MCHC 32.0 RDW 18.4 H Plt Count 193 Seg Neutrophils % 47.5 Sodium 141.9 Potassium 4.8 Chloride 104 Carbon Dioxide 27 Anion Gap 11 BUN 21 H Creatinine 1.62 H Est GFR ( Amer) 39 L Glucose 110 Calcium 9.6 Triglycerides 189 H Cholesterol 116.19 LDL Cholesterol Direct 70 VLDL Cholesterol 37.8 H HDL Cholesterol 27 L Urine Color Urine Appearance Urine pH Ur Specific [place] Urine Protein Urine Glucose (UA) Urine Ketones Urine Blood Urine Nitrite Ur Leukocyte Esterase Urine WBC (Auto) Urine RBC (Auto) 02/18/19 18:32 WBC RBC Hgb Hct MCV MCH MCHC RDW Plt Count Seg Neutrophils % Sodium Potassium Chloride Carbon Dioxide Anion Gap BUN Creatinine Est GFR ( Amer) Glucose Calcium Triglycerides Cholesterol LDL Cholesterol Direct VLDL Cholesterol HDL Cholesterol Urine Color YELLOW Urine Appearance CLEAR Urine pH 5.0 Ur Specific [place] 1.009 Urine Protein NEGATIVE Urine Glucose (UA) NEGATIVE Urine Ketones NEGATIVE Urine Blood NEGATIVE Urine Nitrite NEGATIVE Ur Leukocyte Esterase MODERATE H Urine WBC (Auto) 43 Urine RBC (Auto) 2 02/17/19 18:40 Troponin I < 0.012 Impressions: Chest X-Ray 02/17/19 17:43 IMPRESSION: NO ACUTE RADIOGRAPHIC FINDING IN THE CHEST. Assessment & Plan - Diagnosis (1) Urinary tract infection Qualifiers: Urinary tract infection type: site unspecified Hematuria presence: without hematuria Qualified Code(s): N39.0 - Urinary tract infection, site not specified Is this a current diagnosis for this admission?: Yes Plan: The last time she was admitted the urine culture grew Proteus which was sensitive to ceftriaxone, she will empirically be treated with ceftriaxone until culture results returns (2) Encephalopathy Is this a current diagnosis for this admission?: Yes
[2019-02-19] MEDS: HEPARIN SOD (PORCINE) 5,000 UNIT/ML 1 ML VIAL SUBCUT SCH ×3 (05:21→21:23)
[2019-02-19] MEDS: HYDROXYZINE PAMOATE 25 MG CAPSULE PO SCH ×3 (05:47→21:19)
[2019-02-19] MEDS: GABAPENTIN 300 MG CAPSULE PO SCH ×3 (05:47→21:19)
[2019-02-19] MEDS: FAMOTIDINE 20 MG TABLET PO SCH ×2 (05:47→17:04)
[2019-02-19] MEDS: CLONAZEPAM 1 MG TABLET PO SCH ×3 (05:47→21:19)
[2019-02-19] MEDS: LEVOTHYROXINE SODIUM 0.025 MG TABLET PO SCH (05:47)
[2019-02-19] MEDS: INSULIN LISPRO 100 UNIT/ML 3 ML VIAL SUBCUT SCH ×4 (07:46→21:18)
[2019-02-19] MEDS: QUETIAPINE FUMARATE 100 MG TABLET PO SCH ×2 (09:04→21:20)
[2019-02-19] MEDS: LISINOPRIL 10 MG TABLET PO SCH (09:04)
[2019-02-19] MEDS: CLONIDINE HCL 0.1 MG TABLET PO SCH ×2 (09:04→21:18)
[2019-02-19] MEDS: FOLIC ACID 1 MG TABLET PO SCH (09:05)
[2019-02-19] MEDS: METOPROLOL SUCCINATE 50 MG TAB.SR.24H PO SCH (09:05)
[2019-02-19] MEDS: SITAGLIPTIN PHOSPHATE 50 MG TABLET PO SCH (09:05)
[2019-02-19] MEDS ORDERED: QUETIAPINE FUMARATE 100 MG TABLET PO SCH (10:00)
[2019-02-19] MEDS: NORMAL SALINE 1000 ML 1,000 ML IV PRN (12:01)
[2019-02-19] MEDS: MONTELUKAST SODIUM 10 MG TABLET PO SCH (21:19)
[2019-02-19] MEDS: CEFTRIAXONE 1 GM/D5W RTU 1 GM/50 ML RTUPB IV SCH (21:20)
--- NOTE | 2019-02-19 21:35 | PDOC DISCHARGE SUMMARY ---
General - Admit/Disc Date/PCP Admission Date/Primary Care Provider: 02/17/19 21:17 LISA DIETZ MD Discharge Date: 02/19/19 - Discharge Diagnosis (1) Urinary tract infection Is this a current diagnosis for this admission?: Yes (2) Encephalopathy Is this a current diagnosis for this admission?: Yes (3) Urinary tract infection due to Klebsiella species Is this a current diagnosis for this admission?: Yes - Additional Information Resuscitation Status: Full Code Prescriptions: Ciprofloxacin 500 mg PO BID #[id number] [email or web address] Home Medications: Clonazepam [Klonopin 1 mg Tablet] 1 mg PO Q8 02/18/19 Clonidine HCl [Catapres 0.1 mg Tablet] 0.1 mg PO Q12 02/18/19 Folic Acid [Folvite 1 mg Tablet] 1 mg PO DAILY 02/18/19 Gabapentin [Neurontin 300 mg Capsule] 300 mg PO Q8 02/18/19 Hydroxyzine Pamoate [Vistaril 25 mg Capsule] 25 mg PO Q8 02/18/19 Levothyroxine Sodium 25 mcg PO Q6AM 02/18/19 Lisinopril [Prinivil] 20 mg PO DAILY 02/18/19 Metformin HCl [Glucophage] 1,000 mg PO BID 02/18/19 Metoprolol Succinate [Toprol XL 100 mg Tablet] 100 mg PO DAILY 02/18/19 Montelukast Sodium [Singulair 10 mg Tablet] 10 mg PO QHS 02/18/19 Quetiapine Fumarate [Seroquel 100 mg Tablet] 100 mg PO QAM 02/18/19 Quetiapine Fumarate [Seroquel] 400 mg PO QHS 02/18/19 Ranitidine HCl [Zantac] 150 mg PO BID 02/18/19 Sitagliptin Phosphate [Januvia] 100 mg PO DAILY 02/18/19 Tiotropium Br/Olodaterol HCl [Stiolto Respimat Inhal [place]] 2 puff IH DAILY 02/18/19 Ciprofloxacin 500 mg PO BID #14 [email or web address] 02/19/19 History of Present Illness History of Present Illness: MELISSA OH is a 63 year old female, She was just discharged from this hospital on 02/16/2019when she was admitted for the management of cellulitis of the right foot , at the time she also had incision and drainage of the right big toe. On that admission she had conization of the urinary tract, she was treated empirically for the cellulitis with clindamycin. She was transferred from her residence by family friend because she was confused, she was hallucinating and generalized body weakness. She was evaluated in the emergency room, it was felt that she needed to be admitted to the hospital for management of UTI. The ED physician said the urine was grossly abnormal Hospital Course Hospital Course: Patient was admitted for the management of UTI due to Klebsiella she was treated with Rocephin, according to utilization committee, patient only met criteria for observation. She was treated successfully with IV antibiotic for a day, she regained full alertness, the organism is sensitive to most antibiotic she will be discharged on p.o. Cipro Physical Exam Vital Signs: Temp Pulse Resp BP Pulse Ox 97.7 F 72 18 159/76 H 100 02/19/19 20:11 02/19/19 20:11 02/19/19 20:11 02/19/19 20:11 02/19/19 20:11 Intake & Output 02/18/19 02/19/19 02/20/19 06:59 06:59 06:59 Intake Total 890 2082 1720 Output Total 1400 1100 Balance 890 682 620 Weight 115.4 kg 117.7 kg General appearance: PRESENT: no acute distress, well-developed, well-nourished Head exam: PRESENT: atraumatic, normocephalic Eye exam: PRESENT: conjunctiva pink, EOMI, PERRLA. ABSENT: scleral icterus Ear exam: PRESENT: normal external ear exam Mouth exam: PRESENT: moist, tongue midline Neck exam: PRESENT: full ROM Respiratory exam: PRESENT: clear to auscultation alvaro Cardiovascular exam: PRESENT: RRR, +S1, +S2 Pulses: PRESENT: normal dorsalis pedis pul, +2 pedal pulses bilateral Vascular exam: PRESENT: normal capillary refill GI/Abdominal exam: PRESENT: normal bowel sounds, soft Rectal exam: PRESENT: deferred Neurological exam: PRESENT: alert, awake, oriented to person, oriented to place, oriented to time, oriented to situation, CN II-XII grossly intact Psychiatric exam: PRESENT: appropriate affect, normal mood Skin exam: PRESENT: dry, intact, warm Results Laboratory Results: 02/17/19 23:05 02/17/19 23:05 02/17/19 19:50 Clean Catch Midstream Urine Culture - Final Klebsiella Pneumoniae 02/17/19 18:40 Troponin I < 0.012 Impressions: Chest X-Ray 02/17/19 17:43 IMPRESSION: NO ACUTE RADIOGRAPHIC FINDING IN THE CHEST. Qualifiers - * PATIENT BEING DISCHARGED WITH ANY OF THE FOLLOWING DIAGNOSIS: No VTE patient discharged on overlapping Therapy?: No Reason(s) for not prescribing Overlap Therapy:: Not indicated Stroke Pt being discharged on Anti-thrombolytic therapy?: No Reason(s) for not prescribing Anti-thrombolytic therapy:: Not indicated Stroke Pt being discharged on Anti-coagulation therapy?: No Reason(s) for not prescribing Anti-coagulation therapy:: Not indicated Stroke Pt being discharged on Statins?: No Reason(s) for not prescribing Statins therapy:: Not indicated [place] Pt being discharged on Aspirin therapy?: No Reason(s) for not prescribing Aspirin therapy:: Not indicated GA Pt being discharged on Statins?: No Reason(s) for not prescribing Statin therapy:: Not indicated [place] Pt discharged ACEI/ARBS?: No Reason(s) for not prescribing ACEI/ARBS:: Not indicated Acute Heart Failure - Is this a Heart Failure Patient?: No Follow-up Appointment scheduled within 7 days?: Yes
[2019-02-20 00:37] VITALS: BP 151/54
[2019-02-20] MEDS: CLONAZEPAM 1 MG TABLET PO SCH (06:13)
[2019-02-20] MEDS: GABAPENTIN 300 MG CAPSULE PO SCH (06:13)
[2019-02-20] MEDS: FAMOTIDINE 20 MG TABLET PO SCH (06:13)
[2019-02-20] MEDS: HYDROXYZINE PAMOATE 25 MG CAPSULE PO SCH (06:13)
[2019-02-20] MEDS: HEPARIN SOD (PORCINE) 5,000 UNIT/ML 1 ML VIAL SUBCUT SCH (06:13)
[2019-02-20] MEDS: LEVOTHYROXINE SODIUM 0.025 MG TABLET PO SCH (06:13)
[2019-02-20] MEDS: INSULIN LISPRO 100 UNIT/ML 3 ML VIAL SUBCUT SCH ×2 (08:05→11:07)
[2019-02-20] MEDS: QUETIAPINE FUMARATE 100 MG TABLET PO SCH (08:18)
[2019-02-20] MEDS: CLONIDINE HCL 0.1 MG TABLET PO SCH (09:43)
[2019-02-20] MEDS: LISINOPRIL 10 MG TABLET PO SCH (09:43)
[2019-02-20] MEDS: METOPROLOL SUCCINATE 50 MG TAB.SR.24H PO SCH (09:43)
[2019-02-20] MEDS: SITAGLIPTIN PHOSPHATE 50 MG TABLET PO SCH (09:43)
[2019-02-20] MEDS: FOLIC ACID 1 MG TABLET PO SCH (09:43)
== END 2019-02-20 11:00 | disposition home or self-care (01) ==
LOC: ER 17:19 → INTOOBSV 21:17 → EH 21:17 → 4S 23:58
PROVIDERS: ADMIT Internal Medicine; ATTEND Internal Medicine
DX: N39.0 Urinary tract infection, site not specified (principal); B96.1 Klebsiella pneumoniae [K. pneumoniae] as the cause of diseases classified elsewhere; G93.40 Encephalopathy, unspecified; Z90.49 Acquired absence of other specified parts of digestive tract; K21.9 Gastro-esophageal reflux disease without esophagitis; J44.9 Chronic obstructive pulmonary disease, unspecified; E11.9 Type 2 diabetes mellitus without complications; E66.01 Morbid (severe) obesity due to excess calories; R53.1 Weakness; K52.9 Noninfective gastroenteritis and colitis, unspecified; F20.9 Schizophrenia, unspecified; F31.9 Bipolar disorder, unspecified; Z79.84 Long term (current) use of oral hypoglycemic drugs; Z79.899 Other long term (current) drug therapy
CPT/HCPCS: 93005; 99285; 96360; 96361; 36415 ×2; 87040 ×2; 87086 ×2; 82962 ×2; 83735; 85025; 87088; 80053; 81001 ×2; 84484; 87186; 83036; 80061; 71045; 93010; G0378 ×3; A9270 ×34; J1644; J3490; J7030 ×2; J7040; J0696 ×3; J1815

== ENCOUNTER → 2019-09-30 | Outpatient (CLI) | payer MEDICARE, MEDICAID ==
--- NOTE | 2019-09-30 15:28 | RADIOLOGY REPORT (SQ) ---
EXAM DESCRIPTION: VENOUS UNILATERAL LOWER IMAGES COMPLETED DATE/TIME: 09/30/2019 3:14 pm REASON FOR STUDY: LLE SWELLING R22.42 LOCALIZED SWELLING, MASS AND LUMP, LEFT LOWER LIMB COMPARISON: None. TECHNIQUE: Dynamic and static steele scale and color images acquired of the left leg venous system. Se lected spectral images acquired with additional compression and augmentation maneuvers. The contralat eral common femoral vein and saphenofemoral junction were also imaged. Images stored on PACS. LIMITATIONS: None. FINDINGS: COMMON FEMORAL: Normal phasicity, compression and augmentation. No visualized echogenic ma terial on steele scale. No defects on color images. FEMORAL: Normal compression and augmentation. No visualized echogenic material on steele scale. No defe cts on color images. POPLITEAL: Normal compression, augmentation. No visualized echogenic material on steele scale. No defec ts on color images. CALF VESSELS: Normal compression, augmentation. No visualized echogenic material on steele scale. No de fects on color images. GSV and SSV: Normal compression, augmentation. No visualized echogenic material on steele scale. No def ects on color images. ANY DEEP VENOUS INSUFFICIENCY: Not evaluated. ANY EVIDENCE OF POPLITEAL CYST: No. OTHER: No other significant finding. CONTRALATERAL COMMON FEMORAL VEIN AND SAPHENOFEMORAL JUNCTION: Normal phasicity, compression and augmentation. No visualized echogenic material on steele scale. No de fects on color images. IMPRESSION: NO EVIDENCE DVT OR SVT IN THE LEFT LEG. TECHNICAL DOCUMENTATION: JOB ID: [id number] 2010 [id number]- All Rights Reserved Reading location - IP/workstation name: [email or web address]
== END ==
LOC: SP 13:13
PROVIDERS: ATTEND Internal Medicine
DX: R22.42 Localized swelling, mass and lump, left lower limb (principal)
CPT/HCPCS: 93971

== ENCOUNTER 2019-11-02 08:24 | Day surgery (SDC) | payer MEDICARE, MEDICAID ==
[~2019-11-02 08:24] MED LIST: BUPIVACAINE HCL 0.75% INJ/PF (7.5 MG/1 ML) 10 ML SDV OD PRN; EPINEPHRINE INJ/PF 1 MG/1 ML AMPULE ONE; FENTANYL CITRATE INJ/PF 100 MCG/2 ML AMPUL ONE; KETOROLAC TROMETHAMINE 0.45% 4 DROP/0.4 ML DROPERETTE OD PRN; LIDOCAINE 1% INJ-PF (10 MG/ML) 30 ML SDV ONE; LIDOCAINE 4% INJ/PF (40 MG/ML) 5 ML AMPUL OD PRN; MIDAZOLAM 2 MG/2 ML INJ ONE; ONDANSETRON HCL INJ/PF 4 MG/2 ML SDV ONE
[2019-11-02] MEDS ORDERED: TOBRAMYCIN SULFATE/DEXAMETH OPH SUSP 2.5 ML ONE (08:35)
[2019-11-02] MEDS: TETRACAINE HCL 0.5% OPH SOLN 4 ML OD PRN ×3 (08:50→09:30)
[2019-11-02] MEDS: CYCLOPENTOLATE 0.2%/PHENYLEPHRINE 1% OPH SOLN 2 ML OD PRN ×3 (08:51→09:12)
[2019-11-02] MEDS: TROPICAMIDE 1% OPH SOLN 15 ML OD PRN ×3 (08:51→09:12)
[2019-11-02] MEDS: TOBRAMYCIN SULFATE/DEXAMETH OPH SUSP 2.5 ML OD PRN ×4 (08:51→09:59)
[2019-11-02] MEDS: LIDOCAINE 1%/PHENYLEPHRINE 1.5% 1 ML VIAL ONE ×2 (09:42→09:45)
[2019-11-02] MEDS: DORZOLAMIDE HCL 2%/TIMOLOL MALEAT 0.5% OPH SOLN 10 ML OD PRN ×2 (09:42→09:59)
[2019-11-02] MEDS: CHONDR SU A NA/HYALUR INTRAOC KIT (SURGICARE) ONE ×2 (09:42→09:45)
--- NOTE | 2019-11-02 11:49 | Operative Report ---
Operative Report-[facility] Operative Report: DATE OF SURGERY: 11/02/2019 PREOPERATIVE DIAGNOSIS: CATARACT, RIGHT EYE. POSTOPERATIVE DIAGNOSIS: CATARACT, RIGHT EYE. PROCEDURE PERFORMED: PHACOEMULSIFICATION WITH POSTERIOR CHAMBER INTRAOCULAR LENS, RIGHT EYE. Intraocular Lens Model : MX60E 24.0 Total Phaco Time: 49 seconds SURGEON: LINDA ARORA MD ANESTHESIA: TOPICAL WITH MAC. INDICATIONS FOR SURGERY: Difficulty seeing road signs and reading small print. PROCEDURE: The patient was brought to the Operating Room and placed on the operative table. Following tetracaine drops, topical anesthesia was administered. This consisted of instrument wipe pledgets soaked in a solution of 4% Xylocaine mixed with 0.75% Marcaine in a 1:2 ratio. A 2 x 1 cm pledget was placed in the superior fornix. A 1 x 1 cm pledget was placed in the inferior fornix. The eye was patched shut for 5 minutes. The patch was removed. The eye was sterilely prepped and draped in the usual manner. Lid speculum was placed in the eye. The pledgets were removed. 4-0 black silk sutures were placed around the superior and the inferior rectus muscles to be used as traction. A conjunctival peritomy was made at the 10 o'clock position. Hemostasis was obtained with bipolar cautery. A posterior limbal groove was created using a crescent knife and dissected anteriorly towards the cornea. A sharp point blade was used to create a paracentesis site at the 2 o'clock position. 0.2 cc non preserved Lidocaine was injected into the anterior chamber. A 2.4 mm keratome was used to enter the anterior chamber through the groove. Viscoelastic was injected into the anterior chamber. An anterior capsulotomy was performed using Utrata forceps in a capsulorrhexis fashion. Hydrodissection and hydrodelineation were performed. Phacoemulsification was performed in [id number] technique. Following this, the I/A unit was used to remove residual cortex. Viscoelastic was injected into the capsular bag. The Intraocular lens was placed in the capsular bag. The I/A unit was used to remove residual viscoelastic. The wound was seen to be watertight under high and low pressure, and no sutures were placed. The intraocular lens was well centered. The pressure was adjusted in the eye to normal pressure. The 4-0 black silk sutures and lid speculum were removed. The eye was shielded after Besivance. prednisolone, and Cosopt drops were placed. The patient tolerated the procedure well and was sent to the Recovery Room in good condition.
== END 2019-11-02 11:00 | disposition home or self-care (01) ==
LOC: SC 08:24
PROVIDERS: ATTEND Ophthalmology
DX: H25.813 Combined forms of age-related cataract, bilateral (principal); H35.52 Pigmentary retinal dystrophy; H01.004 Unspecified blepharitis left upper eyelid; H01.001 Unspecified blepharitis right upper eyelid; E11.9 Type 2 diabetes mellitus without complications; I10 Essential (primary) hypertension; E03.9 Hypothyroidism, unspecified; Z87.891 Personal history of nicotine dependence; J45.909 Unspecified asthma, uncomplicated; G62.9 Polyneuropathy, unspecified; B19.20 Unspecified viral hepatitis C without hepatic coma; E66.01 Morbid (severe) obesity due to excess calories; Z79.899 Other long term (current) drug therapy; Z79.4 Long term (current) use of insulin; Z79.84 Long term (current) use of oral hypoglycemic drugs
CPT/HCPCS: 82962; 00142; 66984; V2632; J2250; J3490 ×4; A9270 ×2; J0171; J3010; J2405; 142

== ENCOUNTER 2019-12-04 18:25 | Emergency (ER) | payer MEDICARE, MEDICAID ==
[2019-12-04 19:35] LABS: ABSOLUTE EOSINOPHILS # (AUTO) 0.2 10^3/uL (0.0-0.6); ABSOLUTE LYMPHOCYTES (AUTO) 1.1 10^3/uL (0.5-4.7); ABSOLUTE MONOCYTES (AUTO) 0.6 10^3/uL (0.1-1.4); ABSOLUTE NEUT (AUTO) 7.7 10^3/uL (1.7-8.2); BASOPHILS % (AUTO) 0.3 % (0-2); EOSINOPHILS % (AUTO) 2.3 % (0-6); HEMATOCRIT 41.5 % (36.0-47.0); HEMOGLOBIN 13.7 g/dL (12.0-15.5); LYMPHOCYTES % (AUTO) 10.9 % (13-45); MEAN CORPUSCULAR HEMOGLOBIN 24.3 pg (27.0-33.4); MEAN CORPUSCULAR HGB CONC 32.9 g/dL (32.0-36.0); MEAN CORPUSCULAR VOLUME 74 fl (80-97); MONOCYTES % (AUTO) 6.5 % (3-13); PLATELET COUNT 218 10^3/uL (150-450); RED BLOOD COUNT 5.64 10^6/uL (3.72-5.28); RED CELL DISTRIBUTION WIDTH 17.8 % (11.5-14.0); TOTAL CELLS COUNTED % (AUTO) 100 %; WHITE BLOOD COUNT 9.6 10^3/uL (4.0-10.5)
[2019-12-04 19:42] LABS: APPEARANCE,URINE CLEAR; BILIRUBIN,URINE NEGATIVE (NEGATIVE); COLOR,URINE YELLOW; GLUCOSE, URINE NEGATIVE (NEGATIVE); KETONES,URINE NEGATIVE (NEGATIVE); LEUKOCYTE ESTERASE,URINE SMALL (NEGATIVE); NITRITE,URINE NEGATIVE (NEGATIVE); PROTEIN,URINE NEGATIVE (NEGATIVE); UROBILINOGEN,URINE NEGATIVE mg/dL (<2.0)
[2019-12-04 19:49] LABS: ALBUMIN 4.4 g/dL (3.5-5.0); ALKALINE PHOSPHATASE 106 U/L (38-126); ANION GAP 10 (5-19); ASPARTATE AMINO TRANSFERASE 51 U/L (14-36); BILIRUBIN,DIRECT 0.2 mg/dL (0.0-0.4); BILIRUBIN,TOTAL 0.8 mg/dL (0.2-1.3); BLOOD UREA NITROGEN 16 mg/dL (7-20); CALCIUM 9.4 mg/dL (8.4-10.2); CARBON DIOXIDE 26 mmol/L (22-30); CHLORIDE 103 mmol/L (98-107); GLUCOSE 135 mg/dL (75-110); POTASSIUM 4.7 mmol/L (3.6-5.0)
--- NOTE | 2019-12-04 20:23 | ER Document Report ---
ED General - General Chief Complaint: Nausea/Vomiting Stated Complaint: NAUSEA,VOMITING,FEVER,HEADACHE Time Seen by Provider: 12/04/19 20:20 Primary Care Provider: LISA DIETZ MD [Primary Care Provider] - Follow up as needed Notes: 12/04/19 19:46 - ED Nursing Note by MACKNEZIE NEVAREZ Acct Num: [id number] : 1955 Patient Age: 64 Pt. reports to the ED via POV with C/O N/V and UTI. Pt. states that she currently has a UTI and is being treated with nitrofurantoin. pt. reports having abdominal cramping and some N/V over the last few weeks. pt. is afebrile alert and oriented x4. respirations even and unlabored. hx of HTN. DM, asthma, COPD, Hep C. Pt. rambles off a lot of random stories and is not very focused on reason she is in the ED. my notes 64-year-old female arrived by EMS with chief complaint of 2 days of paroxysmal vomiting at least 3 times daily for the last 2 days. Patient reports she has a history of retinitis pigmentosa and earlier in the month had Dr. Ritika Espinoza perform cataract surgery on her right eye. She is scheduled for her left eye to be operated on. She has a history of psoriasis and saw Dr. Dietz on 01 December and he prescribed Macrobid for UTI. Since taking this medicine she has had nausea and vomiting. The #1 side effect of Macrobid is nausea and vomiting and I informed her of this fact. Patient reports she is IDDM and takes 60 units of Lantus every morning. She complains of some crampy diffuse abdomen at this time. Patient otherwise is doing well and is quite talkative. She reports her daughter used to work in the lab here at [facility] and 3 years ago and SHARMILA Sterling has spoken to her about this at some length. Patient denies any chest pain denies any diaphoresis TRAVEL OUTSIDE OF THE [place] IN LAST 30 DAYS: No - Related Data Allergies/Adverse Reactions: ciprofloxacin [From Cipro] Allergy (Severe, Verified 10/28/19 15:37) Psychosis kiwi [Kiwi (Actinidia Chinensis)] Allergy (Severe, Verified 10/28/19 15:37) tongue swelling and bumps on tongue propoxyphene napsylate [From Darvocet-N 100] Allergy (Severe, Verified 10/28/19 15:37) VOMITING, SWELLING OF BODY sulfamethoxazole [From Bactrim] Allergy (Severe, Verified 10/28/19 15:37) PT STATES HER "BODY QUINONEZ UP. tetracycline [Tetracycline] Allergy (Severe, Verified 10/28/19 15:37) BUMPS ON BODY, RASH trimethoprim [From Bactrim] Allergy (Severe, Verified 10/28/19 15:37) PT STATES HER "BODY QUINONEZ UP." strawberry [Phillips] Allergy (Mild, Verified 10/28/19 15:37) bumps and sores on tongue nuts Allergy (Mild, Uncoded 10/28/19 15:37) walnuts. causes tongue swelling pineapples Allergy (Mild, Uncoded 10/28/19 15:37) tongue swelling and bumps on tongue Past Medical History - General Information source: Patient - Social History Smoking Status: Former Smoker Cigarette use (# per day): No Chew tobacco use (# tins/day): No Smoking Education Provided: No Frequency of alcohol use: None Drug Abuse: None Family History: Reviewed & Not Pertinent Patient has suicidal ideation: No Patient has homicidal ideation: No - Past Medical History Cardiac Medical History: Reports: Hx Hypertension Denies: Hx Heart Attack Pulmonary Medical History: Reports: Hx Asthma, Hx COPD, Hx Pneumonia Denies: Hx Bronchitis Neurological Medical History: Denies: Hx Cerebrovascular Accident, Hx Seizures Endocrine Medical History: Reports: Hx Diabetes Mellitus Type 2 Renal/ Medical History: Denies: Hx Peritoneal Dialysis GI Medical History: Reports: Hx Gastroesophageal Reflux Disease, Hx Hepatitis, Hx Ulcer. Denies: Hx Hiatal Hernia Musculoskeletal Medical History: Reports Hx Arthritis - DDD, BACK AND KNEES Psychiatric Medical History: Reports: Hx Bipolar Disorder, Hx Depression, Hx Schizophrenia - "borderline" Infectious Medical History: Reports: Hx Hepatitis Past Surgical History: Reports: Hx Section, Hx Cholecystectomy, Hx Herniorrhaphy. Denies: Hx Mastectomy, Hx Open Heart Surgery, Hx Pacemaker - Immunizations Hx Diphtheria, Pertussis, Tetanus Vaccination: Yes - HAD PNEUMONIA VACCINE-NOT SURE OF YEAR Hx Pneumococcal Vaccination: 06/02/09 Review of Systems - Review of Systems Constitutional: See HPI, Weakness, Recent illness EENT: No symptoms reported Cardiovascular: No symptoms reported Respiratory: No symptoms reported Gastrointestinal: See HPI, Abdominal pain, Nausea, Vomiting Genitourinary: See HPI, Dysuria Female Genitourinary: No symptoms reported Musculoskeletal: No symptoms reported Skin: No symptoms reported Hematologic/Lymphatic: No symptoms reported Neurological/Psychological: No symptoms reported Physical Exam - Vital signs Vitals: Temp Pulse Resp BP Pulse Ox 100.4 F 101 H 20 163/85 H 93 12/04/19 18:34 12/04/19 18:34 12/04/19 18:34 12/04/19 18:34 12/04/19 18:34 Interpretation: Hypertensive, Tachycardic, Febrile - General General appearance: Alert - HEENT Head: Normocephalic, Atraumatic Eyes: Normal Pupils: PERRL Nasal: Normal Mouth/Lips: Normal Mucous membranes: Dry Pharynx: Normal Neck: Normal - Respiratory Respiratory status: No respiratory distress Chest status: Nontender Breath sounds: Normal Chest palpation: Normal - Cardiovascular Rhythm: Tachycardia Heart sounds: Normal auscultation - Abdominal Inspection: Morbidly Obese Distension: No distension Bowel sounds: Hyperactive Tenderness: Tender Organomegaly: No organomegaly - Rectal Hemorrhoids: Other - rehabilitation technician - Genitourinary Speculum exam: Other - deferred - Back Back: Normal - Extremities General upper extremity: Normal inspection, Nontender, Normal color, Normal ROM, Normal temperature General lower extremity: Normal inspection, Nontender, Normal color, Normal ROM, Normal temperature, Normal weight bearing. No: Patria's sign - Neurological Neuro grossly intact: Yes Cognition: Normal Orientation: AAOx4 Andrea Coma Scale Eye Opening: Spontaneous Andrea Coma Scale Verbal: Oriented [place] Coma Scale Motor: Obeys Commands [place] Coma Scale Total: 15 Speech: Normal Motor strength normal: LUE, RUE, LLE, RLE Sensory: Normal - Psychological Associated symptoms: Normal affect - Skin Skin Temperature: Warm Skin Moisture: Dry Character of irregularity: Other - psoriasis Course - Vital Signs Vital signs: Temp Pulse Resp BP Pulse Ox 98.6 F 104 H 20 125/100 H 98 12/04/19 19:44 12/04/19 19:44 12/04/19 19:44 12/04/19 19:44 12/04/19 19:44 - Laboratory Result Diagrams: 12/04/19 19:27 12/04/19 19:27 Laboratory results interpreted by me: 12/04/19 12/04/19 12/04/19 19:27 19:27 19:27 RBC 5.64 H MCV 74 L MCH 24.3 L RDW 17.8 H Lymph % (Auto) 10.9 L Seg Neutrophils % 80.0 H Creatinine 1.28 H Est GFR ( Amer) 50 L Est GFR (MDRD) Non-Af 42 L Glucose 135 H AST 51 H ALT 36 H Ur Leukocyte Esterase SMALL H Critical Care Note - Critical Care Note Total time excluding time spent on procedures (mins): 60 Comments: I informed patient of her lab and x-ray reports and she appeared to understand findings Discharge - Discharge Clinical Impression: Medication side effect Nausea & vomiting Qualifiers: Vomiting type: unspecified Vomiting Intractability: unspecified Qualified C ode(s): R11.2 - Nausea with vomiting, unspecified UTI (urinary tract infection) Qualifiers: Urinary tract infection type: acute cystitis Hematuria presence: without hematuria Qualified Code(s): N30.00 - Acute cystitis without hematuria Condition: Good Disposition: HOME, SELF-CARE Referrals: LISA DIETZ MD [Primary Care Provider] - Follow up as needed
[2019-12-04] MEDS ORDERED: NORMAL SALINE 500 ML IV ONE (20:54)
[2019-12-04] MEDS ORDERED: ONDANSETRON HCL INJ/PF 4 MG/2 ML SDV IV ONE (20:54)
[2019-12-04] MEDS ORDERED: GENTAMICIN SULFATE INJ 80 MG/2 ML VIAL IV ONE (20:55)
[2019-12-04] MEDS ORDERED: MORPHINE SULFATE 10 MG/ML INJ IV ONE (20:55)
--- NOTE | 2019-12-04 21:54 | RADIOLOGY REPORT (SQ) ---
EXAM DESCRIPTION: XR ABDOMEN 1 VIEW (KUB) COMPLETED DATE/TME: 12/04/2019 21:01 CLINICAL HISTORY: 64 years, Female, pain upper quads COMPARISON: None. NUMBER OF VIEWS: TECHNIQUE: LIMITATIONS: None. FINDINGS: No evidence of bowel obstruction. There are multiple surgical clips in the right upper quadrant. There is also evidence of prior left abdominal wall hernia surgery. IMPRESSION: No acute finding. copyright 2010 [employer]- All Rights Reserved
[2019-12-04] MEDS ORDERED: ONDANSETRON ODT 4 MG TAB (6 TAB/ER DISP) PO PRN (22:07)
[2019-12-04 22:42] VITALS: BP 130/89
== END 2019-12-04 22:52 | disposition home or self-care (01) ==
LOC: ER 18:25
DX: N30.00 Acute cystitis without hematuria (principal); T37.8X5A Adverse effect of other specified systemic anti-infectives and antiparasitics, initial encounter; R11.2 Nausea with vomiting, unspecified; R50.9 Fever, unspecified; R51 Headache; I10 Essential (primary) hypertension; E11.9 Type 2 diabetes mellitus without complications; Z79.4 Long term (current) use of insulin; Z88.3 Allergy status to other anti-infective agents
CPT/HCPCS: 99285; 96375; 96365; 36415; 87040; 85025; 87077; 80053; 81001; 87186; 87150 ×26; 74018; J1580; J2270; J2405; J7040; A9270

== ENCOUNTER 2020-01-25 09:29 | Day surgery (SDC) | payer MEDICARE, MEDICAID ==
[~2020-01-25 09:29] MED LIST changes: -BUPIVACAINE HCL 0.75% INJ/PF (7.5 MG/1 ML) 10 ML SDV OD PRN; +BUPIVACAINE HCL 0.75% INJ/PF (7.5 MG/1 ML) 10 ML SDV OS PRN; +CHONDR SU A NA/HYALUR INTRAOC KIT (SURGICARE) ONE; -KETOROLAC TROMETHAMINE 0.45% 4 DROP/0.4 ML DROPERETTE OD PRN; -LIDOCAINE 1% INJ-PF (10 MG/ML) 30 ML SDV ONE; +LIDOCAINE 1%/PHENYLEPHRINE 1.5% 0.8 ML SYRINGE ONE; -LIDOCAINE 4% INJ/PF (40 MG/ML) 5 ML AMPUL OD PRN; +LIDOCAINE 4% INJ/PF (40 MG/ML) 5 ML AMPUL OS PRN; +TOBRAMYCIN SULFATE/DEXAMETH OPH SUSP 2.5 ML ONE
[2020-01-25] MEDS: CYCLOPENTOLATE 0.2%/PHENYLEPHRINE 1% OPH SOLN 2 ML OS PRN ×3 (10:05→10:25)
[2020-01-25] MEDS: TROPICAMIDE 1% OPH SOLN 15 ML OS PRN ×3 (10:05→10:25)
[2020-01-25] MEDS: TETRACAINE HCL 0.5% OPH SOLN 4 ML OS PRN ×3 (10:05→10:45)
[2020-01-25] MEDS: KETOROLAC TROMETHAMINE 0.45% 4 DROP/0.4 ML DROPERETTE OS PRN ×2 (10:05→11:38)
[2020-01-25] MEDS: TOBRAMYCIN SULFATE/DEXAMETH OPH SUSP 2.5 ML OS PRN ×3 (10:05→10:15)
[2020-01-25] MEDS: DORZOLAMIDE HCL 2%/TIMOLOL MALEAT 0.5% OPH SOLN 10 ML OS PRN ×2 (11:09)
[2020-01-25] MEDS: PREDNISOLONE ACETATE 1% OPH SUSP 5 ML OS PRN ×2 (11:09)
--- NOTE | 2020-01-25 12:20 | Operative Report ---
Operative Report-[facility] Operative Report: DATE OF SURGERY: 01/25/2020 PREOPERATIVE DIAGNOSIS: CATARACT, LEFT EYE. POSTOPERATIVE DIAGNOSIS: CATARACT, LEFT EYE. PROCEDURE PERFORMED: PHACOEMULSIFICATION WITH POSTERIOR CHAMBER INTRAOCULAR LENS, LEFT EYE. Intraocular Lens Model : MX60E 24.0 Total Phaco Time: 5.6 CDE SURGEON: LINDA ARORA MD ANESTHESIA: TOPICAL WITH MAC. INDICATIONS FOR SURGERY: Difficulty reading captions on TV PROCEDURE: The patient was brought to the Operating Room and placed on the operative table. Following tetracaine drops, topical anesthesia was administered. This consisted of instrument wipe pledgets soaked in a solution of 4% Xylocaine mixed with 0.75% Marcaine in a 1:2 ratio. A 2 x 1 cm pledget was placed in the superior fornix. A 1 x 1 cm pledget was placed in the inferior fornix. The eye was patched shut for 5 minutes. The patch was removed. The eye was sterilely prepped and draped in the usual manner. Lid speculum was placed in the eye. The pledgets were removed. 4-0 black silk sutures were placed around the superior and the inferior rectus muscles to be used as traction. A conjunctival peritomy was made at the 10 o'clock position. Hemostasis was obtained with bipolar cautery. A posterior limbal groove was created using a crescent knife and dissected anteriorly towards the cornea. A sharp point blade was used to create a paracentesis site at the 2 o'clock position. 0.2 cc non preserved Lidocaine with phenyephrine was injected into the anterior chamber. A 2.4 mm keratome was used to enter the anterior chamber through the groove. Viscoelastic was injected into the anterior chamber. An anterior capsulotomy was performed using Utrata forceps in a capsulorrhexis fashion. Hydrodissection and hydrodelineation were performed. Phacoemulsification was performed in [id number] technique. Following this, the I/A unit was used to remove residual cortex. Viscoelastic was injected into the capsular bag. The Intraocular lens was placed in the capsular bag. The I/A unit was used to remove residual viscoelastic. The wound was seen to be watertight under high and low pressure, and no sutures were placed. The intraocular lens was well centered. The pressure was adjusted in the eye to normal pressure. The 4-0 black silk sutures and lid speculum were removed. The eye was shielded after Besivance,prednisolone, and Cosopt drops were placed. The patient tolerated the procedure well and was sent to the Recovery Room in good condition.
== END 2020-01-25 11:57 | disposition home or self-care (01) ==
LOC: SC 09:29
PROVIDERS: ATTEND Ophthalmology
DX: H25.812 Combined forms of age-related cataract, left eye (principal); Z96.1 Presence of intraocular lens; H35.52 Pigmentary retinal dystrophy; H57.03 Miosis; E11.9 Type 2 diabetes mellitus without complications; I10 Essential (primary) hypertension; E03.9 Hypothyroidism, unspecified; Z87.891 Personal history of nicotine dependence; Z79.899 Other long term (current) drug therapy; Z79.4 Long term (current) use of insulin; J44.9 Chronic obstructive pulmonary disease, unspecified
CPT/HCPCS: 82962; 66984; V2632; J2250; J3490 ×5; A9270 ×2; J0171; J3010; J2405; 142